=== PATIENT | male | born 1955 | race Caucasian/White ===

== ENCOUNTER 2017-12-30 17:05 | Inpatient (IN) | payer MEDICARE ==
[2017-12-30 17:48] LABS: #Eosinphils 0.4 thou/uL (0.0-0.7); #Monocytes 0.6 thou/uL (0.11-0.59); %Basophils 0.3 % (0.0-1.0); %Eosinophils 7.3 % (0.0-10.0); %Lymphocytes 33.3 % (21.0-51.0); %Monocytes 9.3 % (0.0-10.0); %Neutrophils 49.9 % (42.0-75.0); Hemoglobin 12.1 g/dL (14.0-18.0); Mean Corpuscular HGB CONC 33.9 g/dL (32.0-36.0); Mean Corpuscular Hemoglobin 31.4 pg (27.0-31.0); Mean Corpuscular Volume 92.6 fl (80.0-94.0); Mean Platelet Volume 7.8 fL (7.4-10.4); Platelet Count 126 thou/uL (130-400); RBC Distribution Width 11.8 % (11.5-14.5); Red Blood Cell (RBC) Count 3.86 mill/uL (4.70-6.10)
[2017-12-30 18:12] LABS: ALT (SGPT) 33 U/L (8-55); AST (SGOT) 31 U/L (5-34); Albumin 3.9 g/dL (3.4-4.8); Alkaline Phosphatase 65 U/L (40-150); Anion Gap 13 mmol/L (10-20); BUN (Urea Nitrogen) 28 mg/dL (8.4-25.7); Bilirubin, Total 0.6 mg/dL (0.2-1.2); Calc. Creatinine Clearance 0 mL/min (70-130); Calcium 8.8 mg/dL (7.8-10.44); Carbon Dioxide 21 mmol/L (23-31); Chloride 100 mmol/L (98-107); Estimated GFR-MDRD 31; Globulin 2.7 g/dL (2.4-3.5); Glucose 94 mg/dL (80-115); Potassium 3.8 mmol/L (3.5-5.1); Protein, Total 6.6 g/dL (5.8-8.1); Sodium 130 mmol/L (136-145)
[2017-12-30 18:16] LABS: CKMB 2.2 ng/mL (0-6.6); Troponin I Less than 0.010 ng/mL (< 0.028)
--- NOTE | 2017-12-30 18:37 | RAD ---
CHEST ONE VIEW: HISTORY: Pain. COMPARISON: 08/01/2007 FINDINGS: Portable upright chest demonstrates a normal cardiac silhouette. Pulmonary vessels and hilum are nor mal. The costophrenic angles are clear. No mass. No consolidation. No pneumothorax or osseous abn ormality. IMPRESSION: No acute cardiopulmonary process. POS: [facility]
[2017-12-30] MEDS ORDERED: Acetaminophen 500 MG TAB ONE (19:30)
[2017-12-30] MEDS ORDERED: Morphine 4 MG/ML VIAL SLOW IVP PRN (20:02)
[2017-12-30] MEDS ORDERED: Nitroglycerin 0.4 MG TAB (25 Tab Bottle) SL PRN (20:02)
[2017-12-30] MEDS ORDERED: Acetaminophen 325 MG TAB PO PRN (20:05)
[2017-12-30] MEDS ORDERED: Milk Of Magnesia 30 ML UDCUP PO PRN (20:05)
[2017-12-30] MEDS ORDERED: Sodium Chloride 0.9% 1,000 ML IV SCH (20:15)
--- NOTE | 2017-12-30 20:48 | HP ---
PRESENTING COMPLAINT: Chest pain. HISTORY OF PRESENT ILLNESS: Mr. Rivera Padilla is a 62-year-old male with a past medical history of CK D, chronic fatigue syndrome, fibromyalgia, type 2 diabetes mellitus who presented to the emergency ro om with complaints of chest pain. He reportedly had a pressure-like pain in his chest this morning, described as a "big diane" sitting on his chest, constant, did not radiate and relieved transiently by taking nitroglycerin. It was associated with nausea and dizziness. The pain went away and about 4 h ours later, he had a repeat of his symptoms associated with dizziness and so he decided to come to [facility] emergency room. Denies palpitations, PND, orthopnea, or lower extremity edema. He has no diarrhea , abdominal pain, constipation or diarrhea. He has no urinary symptoms. He is alert and well orient ed. PAST MEDICAL HISTORY: As stated in the HPI. PAST SURGICAL HISTORY: Bilateral herniorrhaphy, history of back surgery and history of skull fractur e. FAMILY HISTORY: Reviewed and noncontributory. SOCIAL HISTORY: He does not smoke cigarettes, drink alcohol or use illicit drugs. ALLERGIES: No known drug allergies. REVIEW OF SYSTEMS: All systems reviewed are negative except for as stated above in HPI. HOME MEDICATIONS: Reviewed. PHYSICAL EXAMINATION: VITAL SIGNS: Stable. Blood pressure 118/72, heart rate 52, oxygen saturation 100% on room air. GENERAL: Not in acute distress, lying down in bed and looks comfortable. HEENT: Normocephalic, atraumatic. Not pale, anicteric. Moist mucous membranes. PERRLA, EOMI. NECK: Supple, full range of movement. No JVD. RESPIRATORY: Vesicular breath sounds bilaterally. No wheezes, rales or rhonchi. CARDIOVASCULAR: No reproducible chest pain. S1 and S2 only. Regular rate and rhythm. No murmurs, rubs or gallops. ABDOMEN: Soft, nontender, nondistended, obese abdomen, positive bowel sounds. MUSCULOSKELETAL: Swelling around the right ankle, tender to touch. The patient reports he sprained his ankle on Saturday and has had trouble to ambulate and since then. NEUROLOGIC: Alert and well oriented to time, place and person. No focal deficits. PSYCHIATRIC: Normal mood and affect. SKIN: Warm, dry, well-perfused. No rashes or lesions. LABORATORY DATA: CBC showed mild hyponatremia at 130, BUN and creatinine elevated at 28 and 2.13 res pectively. Initial troponin less than 0.010. CBC significant for platelet count of 126. EKG showed a first-degree AV block with no signs of acute ischemia. Chest x-ray showed no acute pulmonary proc ess. ASSESSMENT AND PLAN: 1. Unstable angina: The patient with history of diabetes mellitus who presented with pressure-like chest pain and symptoms suggestive of possible myocardial ischemia. He will be admitted to telemetry , cardiac enzymes will be trended. We will also get a Cardiology consult and placed on sublingual ni troglycerin p.r.n. as well as IV morphine p.r.n. for chest pain. He will require a cardiac stress te st on this admission. Further recommendation will depend on what Cardiology decides to do outside ev aluation. 2. Thrombocytopenia. No signs of acute bleeding. Patient has had borderline low platelets, chronic ally. We will place on SCDs while in hospital. 3. Acute kidney injury on chronic kidney disease, likely due to volume depletion, prerenal. We will place on gentle hydration and monitor renal indices. We will hold off on Nephrology consult for now . 4. Chronic fatigue syndrome. We will start the patient on his home medications. 5. Type 2 diabetes mellitus. The patient reports improved glycemic control. Last A1c in 10/2017 wa s 5.5. He will be placed on diabetic diet. 6. Deep venous thrombosis prophylaxis, SCDs. CODE STATUS: FULL CODE. In addition, we will obtain daily labs, trend troponin and monitor vital signs closely.
[2017-12-30 21:11] LABS: Troponin I Less than 0.010 ng/mL (< 0.028)
[2017-12-30] MEDS ORDERED: clonazePAM 1 MG TAB PO SCH (21:30)
[2017-12-30] MEDS ORDERED: Pregabalin 50 MG CAP PO SCH (21:30)
[2017-12-30] MEDS ORDERED: Amitriptyline HCl 25 MG TAB PO SCH (21:30)
[2017-12-30] MEDS: Docusate 100 MG CAP PO SCH (21:46)
--- NOTE | 2017-12-30 22:10 | RAD ---
RIGHT ANKLE THREE VIEWS: HISTORY: Pain. Swelling. COMPARISON: None. FINDINGS: Lateral soft tissue swelling. Ankle mortise is intact. No fracture. IMPRESSION: Lateral soft tissue swelling. No fracture. POS: [facility]
[2017-12-30] MEDS: HYDROcodone/Acetaminophen 5/325 mg Tablet PO PRN (22:11)
[2017-12-30 23:52] LABS: Troponin I Less than 0.010 ng/mL (< 0.028)
[2017-12-31 04:46] LABS: #Eosinphils 0.5 thou/uL (0.0-0.7); #Lymphocytes 2.1 thou/uL (1.20-3.40); #Monocytes 0.6 thou/uL (0.11-0.59); #Neutrophils 3.1 thou/uL (1.40-6.50); %Basophils 0.7 % (0.0-1.0); %Eosinophils 7.7 % (0.0-10.0); %Lymphocytes 32.8 % (21.0-51.0); %Neutrophils 49.9 % (42.0-75.0); Hemoglobin 12.4 g/dL (14.0-18.0); Mean Corpuscular HGB CONC 35.4 g/dL (32.0-36.0); Mean Corpuscular Hemoglobin 32.4 pg (27.0-31.0); Mean Corpuscular Volume 91.4 fl (80.0-94.0); Mean Platelet Volume 7.4 fL (7.4-10.4); Platelet Count 117 thou/uL (130-400); Red Blood Cell (RBC) Count 3.84 mill/uL (4.70-6.10); White Blood Cell (WBC) Count 6.3 thou/uL (4.8-10.8)
[2017-12-31 04:57] LABS: Anion Gap 11 mmol/L (10-20); BUN (Urea Nitrogen) 26 mg/dL (8.4-25.7); Calc. Creatinine Clearance 67 mL/min (70-130); Calcium 8.6 mg/dL (7.8-10.44); Carbon Dioxide 23 mmol/L (23-31); Chloride 102 mmol/L (98-107); Estimated GFR-MDRD 34; Glucose 90 mg/dL (80-115); Potassium 4.4 mmol/L (3.5-5.1); Sodium 132 mmol/L (136-145)
[2017-12-31] MEDS ORDERED: Promethazine 25 MG TAB PO PRN (09:59)
[2017-12-31] MEDS ORDERED: DEXTROAMPHETAMINE PO SCH (10:00)
[2017-12-31] MEDS ORDERED: [UNRECOGNIZED DRUG - OTHER] PO SCH (10:00)
[2017-12-31] MEDS ORDERED: AMPHETAMINE PO SCH (10:00)
[2017-12-31] MEDS: clonazePAM 1 MG TAB PO SCH ×2 (12:04→22:09)
[2017-12-31] MEDS: Aspirin 325 MG TAB PO SCH (12:05)
[2017-12-31] MEDS: Docusate 100 MG CAP PO SCH ×3 (12:05→22:15)
[2017-12-31] MEDS: Pregabalin 50 MG CAP PO SCH ×3 (12:05→22:09)
[2017-12-31] MEDS: HYDROcodone/Acetaminophen 5/325 mg Tablet PO PRN ×2 (12:11→22:13)
--- NOTE | 2017-12-31 12:47 | PDOC.PN ---
- Subjective Encounter Start Date: 12/31/17 Encounter Start Time: 12:45 62 M admitted seen and examined today. he presents with chest pain w concerns for ACS. He is scheduled to get a stress test done this a.m. He has no new conplaints and no acute overnight events. Cardiac enzymes have been negative. - Objective Resuscitation Status: Resuscitation Status FULL:Full Resuscitation MAR Reviewed: Yes Vital Signs & Weight: Vital Signs (12 hours) Temp Pulse Resp BP BP Pulse Ox 12/31/17 12:04 97.7 F 66 20 129/81 97 12/31/17 07:55 97.6 F 55 L 20 12/31/17 07:34 97.6 F 55 L 20 102/67 99 12/31/17 04:30 57 L 18 99/57 L 96 Weight Weight 278 lb 11.2 oz I&O: 12/30/17 12/31/17 01/01/18 06:59 06:59 06:59 Output Total 900 Balance -900 Result Diagrams: 12/31/17 04:36 12/31/17 04:36 Phys Exam - Physical Examination Constitutional: NAD HEENT: moist MMs, sclera anicteric, oral pharynx no lesions Neck: no JVD, supple, full ROM Respiratory: no wheezing, no rales, no rhonchi, clear to auscultation bilateral Cardiovascular: RRR, no significant murmur, no rub Gastrointestinal: soft, non-tender, no distention, positive bowel sounds Musculoskeletal: no edema, pulses present Neurological: non-focal, moves all 4 limbs Psychiatric: normal affect, A&O x 3 Skin: no rash, normal turgor Dx/Plan (1) Unstable angina Status: Acute Comment: Stable and chest pain free. Scheduled for stress test today. Cardiology consulted. SL NTG and Morphine PRN for chest pain. (2) Right ankle sprain Code(s): S93.401A - SPRAIN OF UNSPECIFIED LIGAMENT OF RIGHT ANKLE, INIT ENCNTR Status: Acute Qualifiers: Encounter type: subsequent encounter Involved ligament of ankle: unspecified ligament Qualified Code(s): S93.401D - Sprain of unspecified ligament of right ankle, subsequent encounter Comment: Stable. Continue pain control. (3) Hypothyroidism Code(s): E03.9 - HYPOTHYROIDISM, UNSPECIFIED Status: Acute Qualifiers: Hypothyroidism type: unspecified Qualified Code(s): E03.9 - Hypothyroidism , unspecified Comment: Continue Levothyroxine. (4) CFS (chronic fatigue syndrome) Code(s): R53.82 - CHRONIC FATIGUE, UNSPECIFIED Status: Chronic Comment: Continue home medications. (5) Thrombocytopenia Code(s): D69.6 - THROMBOCYTOPENIA, UNSPECIFIED Status: Acute Comment: No signs of active bleeding. SCDs in place. Avoid heparin based products. (6) CKD (chronic kidney disease) stage 3, GFR 30-59 ml/min Code(s): N18.3 - CHRONIC KIDNEY DISEASE, STAGE 3 (MODERATE) Status: Chronic Comment: Stable. Avoid nephrotoxins. Renally dose medications. - Plan cont current plan of care, plan discussed w/ family, out of bed/ambulate, DVT proph w/SCDs * . Review of Systems - Medications/Allergies Allergies/Adverse Reactions: Allergies Allergy/AdvReac Type Severity Reaction Status Date / Time No Known Drug Allergies Allergy Verified 12/30/17 21:12 Medications: Current Medications Acetaminophen (Tylenol) 650 mg PO Q4H PRN PRN Reason: Headache/Fever or Pain Hydrocodone Bitart/Acetaminophen (Polo 5/325) 1 tab PO Q4H PRN PRN Reason: Moderate Pain (4-6) Last Admin: 12/31/17 12:11 Dose: 1 tab Amitriptyline HCl (Elavil) 25 mg PO HS [facility] Aspirin (Aspirin) 325 mg PO DAILY [facility] Last Admin: 12/31/17 12:05 Dose: 325 mg Clonazepam (Klonopin) 1 mg PO BID [facility] Last Admin: 12/31/17 12:04 Dose: 1 mg Docusate Sodium (Colace) 100 mg PO BID [facility] Last Admin: 12/31/17 12:05 Dose: 100 mg Enalapril Maleate (Vasotec) 20 mg PO DAILY [facility] Sodium Chloride (Normal Saline 0.9%) 1,000 mls @ 50 mls/hr IV .Q20H [facility] Last Admin: 12/30/17 21:41 Dose: 1,000 mls Levothyroxine Sodium (Synthroid) 100 mcg PO 0600 [facility] Magnesium Hydroxide (Milk Of Magnesium) 30 ml PO DAILYPRN PRN PRN Reason: Constipation Morphine Sulfate (Morphine) 2 mg SLOW IVP Q5MIN PRN PRN Reason: Chest Pain Nitroglycerin (Nitrostat) 0.4 mg SL Q5MIN PRN PRN Reason: Chest Pain Paroxetine HCl (Paxil) 60 mg PO DAILY [facility] Patient Own Medication (Patient's Home Medication) 0 each PO ASDIR [facility] Pregabalin (Lyrica) 200 mg PO TID [facility] Last Admin: 12/31/17 12:05 Dose: Not Given Promethazine HCl (Phenergan) 25 mg PO Q4H PRN PRN Reason: Nausea/Vomiting Sodium Chloride (Flush - Normal Saline) 10 ml IVF Q12HR [facility] Sodium Chloride (Flush - Normal Saline) 10 ml IVF PRN PRN PRN Reason: Saline Flush
--- NOTE | 2017-12-31 13:02 | NM ---
CARDIAC SPECT: HISTORY: Unstable angina. Chest pain. Diabetes. TECHNIQUE: A myocardial perfusion scan was performed using the single isotope one day protocol with technetium 9 9m sestamibi, and 9 millicuries was injected intravenously for the rest exam followed by 27 millicuri es for the stress study. Pharmacologic stress with adenosine was monitored and interpreted by Dr. Shanika fatima. FINDINGS: There is a fixed defect in the inferior wall. There are small reversible defects involving the anter ior and anterolateral dia. GATED SPECT LVEF: 62% WALL MOTION EXAM: No significant wall motion abnormalities are seen. IMPRESSION: Findings suspicious for small areas of reversible ischemia in the anterior and anterolateral dia. POS: [facility]
[2017-12-31] MEDS ORDERED: Regadenoson 0.4 MG/5 ML SYRINGE ONE (13:55)
[2017-12-31] MEDS ORDERED: PARoxetine 20 MG TAB PO SCH (15:30)
[2017-12-31] MEDS: Sodium Chloride 0.9% 1,000 ML IV SCH ×2 (16:21→19:54)
[2017-12-31] MEDS ORDERED: Communication Order-Pharmacy FS SCH (16:45)
[2017-12-31] MEDS ORDERED: Atorvastatin Calcium 40 MG TAB PO SCH (21:00)
[2017-12-31] MEDS: Amitriptyline HCl 25 MG TAB PO SCH (22:09)
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
[2018-01-01 05:16] LABS: #Eosinphils 0.4 thou/uL (0.0-0.7); #Lymphocytes 2.1 thou/uL (1.20-3.40); #Monocytes 0.6 thou/uL (0.11-0.59); #Neutrophils 3.3 thou/uL (1.40-6.50); %Basophils 0.4 % (0.0-1.0); %Eosinophils 6.5 % (0.0-10.0); %Lymphocytes 32.2 % (21.0-51.0); %Monocytes 9.8 % (0.0-10.0); %Neutrophils 51.1 % (42.0-75.0); Hemoglobin 12.8 g/dL (14.0-18.0); Mean Corpuscular Hemoglobin 31.4 pg (27.0-31.0); Mean Corpuscular Volume 92.3 fl (80.0-94.0); Mean Platelet Volume 7.4 fL (7.4-10.4); Platelet Count 119 thou/uL (130-400); Red Blood Cell (RBC) Count 4.09 mill/uL (4.70-6.10); White Blood Cell (WBC) Count 6.4 thou/uL (4.8-10.8)
[2018-01-01 05:28] LABS: Anion Gap 11 mmol/L (10-20); BUN (Urea Nitrogen) 24 mg/dL (8.4-25.7); Calc. Creatinine Clearance 70 mL/min (70-130); Calcium 8.9 mg/dL (7.8-10.44); Carbon Dioxide 25 mmol/L (23-31); Cardiac Risk 8.5 (Less than 4.5); Chloride 106 mmol/L (98-107); Cholesterol 239 mg/dl (< 200 Desired); Estimated GFR-MDRD 36; Glucose 84 mg/dL (80-115); HDL Cholesterol 28 mg/dL (>60 Neg Risk); LDL Cholesterol, Calculated 174 mg/dL; Potassium 4.7 mmol/L (3.5-5.1); Sodium 137 mmol/L (136-145); Triglycerides 185 mg/dL (Less than 150)
[2018-01-01] MEDS ORDERED: Lidocaine 1% (PF) 30 ML VIAL ONE (06:22)
[2018-01-01] MEDS ORDERED: Heparin 10,000 UNITS/1 ML VIAL ONE (06:25)
[2018-01-01] MEDS: HYDROcodone/Acetaminophen 5/325 mg Tablet PO PRN ×3 (06:27→21:29)
[2018-01-01] MEDS: Aspirin 325 MG TAB PO SCH (06:27)
[2018-01-01] MEDS: Levothyroxine Sodium 100 MCG TAB PO SCH (06:27)
[2018-01-01] MEDS: clonazePAM 1 MG TAB PO SCH ×2 (06:28→21:31)
[2018-01-01] MEDS: PARoxetine 20 MG TAB PO SCH (06:28)
[2018-01-01] MEDS: Pregabalin 50 MG CAP PO SCH ×3 (06:28→21:30)
[2018-01-01] MEDS: Docusate 100 MG CAP PO SCH ×2 (06:29→21:32)
[2018-01-01] MEDS ORDERED: Midazolam HCl 2 mg/2 ml Vial ONE (07:10)
[2018-01-01] MEDS ORDERED: Fentanyl 100 MCG/2 ML VIAL ONE (07:10)
[2018-01-01] MEDS ORDERED: Protamine Sulfate 50 MG/5 ML VIAL ONE (07:27)
[2018-01-01] MEDS ORDERED: Acetaminophen/Codeine 30-300mg Tablet PO PRN ×2 (07:43)
[2018-01-01] MEDS ORDERED: Nitroglycerin 0.4 MG TAB (25 Tab Bottle) SL PRN (07:43)
[2018-01-01] MEDS ORDERED: traMADol HCl 50 MG TAB PO PRN (07:43)
[2018-01-01] MEDS ORDERED: Sodium Chloride 0.9% 1,000 ML IV SCH ×2 (07:45→14:00)
[2018-01-01] MEDS ORDERED: Sodium Chloride 0.9% 200 ML IV SCH (07:45)
[2018-01-01] MEDS ORDERED: Non-Formulary Item 1 EACH (Enalapril Maleate [Enalapril Maleate] 20 MG) PO SCH (09:00)
[2018-01-01] MEDS ORDERED: Levothyroxine Sodium 100 MCG TAB PO SCH (09:00)
[2018-01-01] MEDS ORDERED: PAROXETINE HCL PO SCH ×2 (09:00)
[2018-01-01] MEDS: Sodium Chloride 0.9% 1,000 ML IV SCH (09:43)
[2018-01-01] MEDS ORDERED: Communication Order-Pharmacy FS SCH (11:21)
[2018-01-01] MEDS ORDERED: Iopamidol 370 76% 100 ML VIAL ONE (12:23)
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
[2018-01-01 12:53] LABS: INR-International Normal Ratio 1.1; PTT 30.1 SEC (22.9-36.1); Prothrombin Time 14.3 SEC (12.0-14.7)
--- NOTE | 2018-01-01 13:44 | RAD ---
CHEST 1 VIEW: Date: 01/01/18 HISTORY: Chest pain. Surgery. Preop. COMPARISON: 12/30/17. FINDINGS: Cardiac silhouette is magnified. Pulmonary vasculature remains slightly engorged. Mediastinum is midl ine. No lobar consolidation or evidence of pneumothorax. export coordinator leads overlie the chest. IMPRESSION: Borderline pulmonary vascular congestion. POS: [facility]
--- NOTE | 2018-01-01 14:47 | PDOC.PN ---
- Subjective Encounter Start Date: 01/01/18 Encounter Start Time: 09:20 Pt seen for followup re: unstable angina. Denies chest pain or shortness of breath. - Objective MAR Reviewed: Yes Vital Signs & Weight: Vital Signs (12 hours) Temp Pulse Resp BP Pulse Ox 01/01/18 12:25 98.2 F 90 12 113/63 92 L Result Diagrams: 01/01/18 04:38 01/01/18 04:38 EKG Reviewed by me: Yes (Tele: NSR) Phys Exam - Physical Examination Obese HEENT: moist MMs, sclera anicteric, oral pharynx no lesions, 2+ tonsils Neck: no nodes, no JVD, supple, full ROM Respiratory: no wheezing, no rales, no rhonchi, clear to auscultation bilateral Cardiovascular: RRR, no rub S1, S2 Gastrointestinal: soft, non-tender, no distention, positive bowel sounds Neurological: moves all 4 limbs Psychiatric: normal affect, A&O x 3 Dx/Plan (1) Unstable angina Status: Acute Comment: Had cath today, CABG recommended for single vessel disease. Pt deciding. (2) Hypothyroidism Code(s): E03.9 - HYPOTHYROIDISM, UNSPECIFIED Status: Acute Qualifiers: Hypothyroidism type: unspecified Qualified Code(s): E03.9 - Hypothyroidism , unspecified Comment: stable, continue Levothyroxine. (3) Thrombocytopenia Code(s): D69.6 - THROMBOCYTOPENIA, UNSPECIFIED Status: Acute Comment: stable (4) CKD (chronic kidney disease) stage 3, GFR 30-59 ml/min Code(s): N18.3 - CHRONIC KIDNEY DISEASE, STAGE 3 (MODERATE) Status: Chronic Comment: receiving hydration, follow creatinine levels post-cath. - Plan * . Review of Systems - Review of Systems Constitutional: negative: fever, chills, sweats, weakness, malaise Respiratory: negative: Cough, Shortness of Breath, SOB with Excertion, Pleuritic Pain, Wheezing Cardiovascular: negative: chest pain, palpitations, orthopnea, paroxysmal nocturnal dyspnea, edema, light headedness Genitourinary: negative: Dysuria, Frequency, Incontinence, Hematuria, Retention Skin: negative: Rash, Lesions, Porfirio, Bruising - Medications/Allergies Allergies/Adverse Reactions: Allergies Allergy/AdvReac Type Severity Reaction Status Date / Time No Known Drug Allergies Allergy Verified 12/30/17 21:12 Medications: Current Medications Acetaminophen (Tylenol) 650 mg PO Q4H PRN PRN Reason: Headache/Fever or Pain Acetaminophen/Codeine Phosphate (Tylenol #3) 1 tab PO Q4H PRN PRN Reason: Mild Pain (1-3) Acetaminophen/Codeine Phosphate (Tylenol #3) 2 tab PO Q4H PRN PRN Reason: Moderate Pain (4-6) Hydrocodone Bitart/Acetaminophen (Julian 5/325) 1 tab PO Q4H PRN PRN Reason: Moderate Pain (4-6) Last Admin: 01/01/18 13:03 Dose: 1 tab Amitriptyline HCl (Elavil) 25 mg PO HS [facility] Last Admin: 12/31/17 22:09 Dose: 25 mg Aspirin (Aspirin) 325 mg PO DAILY [facility] Last Admin: 01/01/18 06:27 Dose: 325 mg Atorvastatin Calcium (Lipitor) 80 mg PO HS [facility] Clonazepam (Klonopin) 1 mg PO BID [facility] Last Admin: 01/01/18 06:28 Dose: 1 mg Docusate Sodium (Colace) 100 mg PO BID [facility] Last Admin: 01/01/18 06:29 Dose: Not Given Sodium Chloride (Normal Saline 0.9%) 1,000 mls @ 50 mls/hr IV .Q20H [facility] Levothyroxine Sodium (Synthroid) 100 mcg PO 0600 [facility] Last Admin: 01/01/18 06:27 Dose: 100 mcg Magnesium Hydroxide (Milk Of Magnesium) 30 ml PO DAILYPRN PRN PRN Reason: Constipation Miscellaneous Information (Communication Order-Pharmacy) 0 each FS ONE [facility] Stop: 01/01/18 16:46 Miscellaneous Information (Communication Order-Pharmacy) 1 each FS ASDIR [facility] Morphine Sulfate (Morphine) 2 mg SLOW IVP Q5MIN PRN PRN Reason: Chest Pain Nitroglycerin (Nitrostat) 0.4 mg SL Q5MIN PRN PRN Reason: Chest Pain Paroxetine HCl (Paxil) 60 mg PO DAILY [facility] Last Admin: 01/01/18 06:28 Dose: 60 mg [Adderall 20 Mg (Tablet] 1.5 Tab) 0 each PO ASDIR [facility] Pregabalin (Lyrica) 200 mg PO TID [facility] Last Admin: 01/01/18 06:28 Dose: 200 mg Promethazine HCl (Phenergan) 25 mg PO Q4H PRN PRN Reason: Nausea/Vomiting Sodium Chloride (Flush - Normal Saline) 10 ml IVF Q12HR [facility] Last Admin: 01/01/18 09:41 Dose: Not Given Sodium Chloride (Flush - Normal Saline) 10 ml IVF PRN PRN PRN Reason: Saline Flush Tramadol HCl (Ultram) 50 mg PO Q6H PRN PRN Reason: Moderate Pain (4-6)
[2018-01-01] MEDS: Amitriptyline HCl 25 MG TAB PO SCH (21:31)
[2018-01-01] MEDS: Atorvastatin Calcium 40 MG TAB PO SCH (21:31)
[2018-01-02 04:25] LABS: #Eosinphils 0.4 thou/uL (0.0-0.7); #Lymphocytes 1.9 thou/uL (1.20-3.40); #Monocytes 0.8 thou/uL (0.11-0.59); #Neutrophils 2.9 thou/uL (1.40-6.50); %Basophils 0.5 % (0.0-1.0); %Eosinophils 7.3 % (0.0-10.0); %Lymphocytes 31.7 % (21.0-51.0); %Monocytes 12.9 % (0.0-10.0); %Neutrophils 47.6 % (42.0-75.0); Hemoglobin 12.4 g/dL (14.0-18.0); Mean Corpuscular HGB CONC 35.5 g/dL (32.0-36.0); Mean Corpuscular Hemoglobin 32.7 pg (27.0-31.0); Mean Corpuscular Volume 92.3 fl (80.0-94.0); Mean Platelet Volume 7.4 fL (7.4-10.4); Platelet Count 113 thou/uL (130-400); RBC Distribution Width 12.3 % (11.5-14.5); Red Blood Cell (RBC) Count 3.79 mill/uL (4.70-6.10); White Blood Cell (WBC) Count 6.1 thou/uL (4.8-10.8)
[2018-01-02 04:47] LABS: Anion Gap 13 mmol/L (10-20); BUN (Urea Nitrogen) 19 mg/dL (8.4-25.7); Calc. Creatinine Clearance 73 mL/min (70-130); Calcium 8.9 mg/dL (7.8-10.44); Carbon Dioxide 24 mmol/L (23-31); Chloride 106 mmol/L (98-107); Estimated GFR-MDRD 38; Glucose 101 mg/dL (80-115); Potassium 4.5 mmol/L (3.5-5.1); Sodium 138 mmol/L (136-145)
[2018-01-02] MEDS ORDERED: CEFAZOLIN/Water 2 GM/20 ML SYRINGE SLOW IVP SCH (05:00)
[2018-01-02] MEDS: Levothyroxine Sodium 100 MCG TAB PO SCH (05:16)
[2018-01-02] MEDS ORDERED: CEFAZOLIN/Water 2 GM/20 ML SYRINGE ONE (06:12)
[2018-01-02] MEDS ORDERED: Albumin 5% 500 ML ONE (06:29)
[2018-01-02] MEDS ORDERED: Heparin 10,000 UNITS/1 ML VIAL 30,000 UNITS in Sodium Chloride 0.9% 1,000 ML FS SCH (06:45)
[2018-01-02] MEDS ORDERED: Vecuronium 10 MG VIAL ONE ×2 (06:50→15:13)
[2018-01-02] MEDS ORDERED: Midazolam HCl 5 mg/5 ml Vial ONE (06:50)
[2018-01-02] MEDS ORDERED: Fentanyl 250 MCG/5 ML VIAL ONE (06:50)
[2018-01-02] MEDS ORDERED: Isosulfan Blue 50 MG/5 ML VIAL ONE (06:50)
[2018-01-02] MEDS ORDERED: Norepinephrine 8 MG/0.9% NS 250 ML ONE (06:51)
[2018-01-02] MEDS ORDERED: Promethazine HCl 25 MG/ML VIAL IM PRN (06:56)
[2018-01-02] MEDS ORDERED: Fentanyl 100 MCG/2 ML VIAL SLOW IVP PRN ×2 (06:56)
[2018-01-02] MEDS ORDERED: Bisacodyl 5 MG TAB PO PRN (06:56)
[2018-01-02] MEDS ORDERED: Post-Op Insulin Drip Protocol IVPB ONE (06:56)
[2018-01-02] MEDS ORDERED: niCARdipine HCl 25 MG in Sodium Chloride 0.9% 250 ML 240 ML IVPB PRN (06:56)
[2018-01-02] MEDS ORDERED: hydrALAZINE 20 MG/ML VIAL SLOW IVP PRN (06:56)
[2018-01-02] MEDS ORDERED: Potassium Chloride 20 MEQ/100 ML PREMIX BAG IVPB PRN (06:56)
[2018-01-02] MEDS ORDERED: Nitroglycerin 50 MG/250 ML BOT 250 ML IVPB PRN (06:56)
[2018-01-02] MEDS ORDERED: Bisacodyl 10 MG SUPP PR PRN (06:56)
[2018-01-02] MEDS ORDERED: Guaifenesin DM 100-10/5 ML UDCUP PO PRN (06:56)
[2018-01-02] MEDS ORDERED: Mag-Al 1200 mg/1200 mg/30 ML UDCUP PO PRN (06:56)
[2018-01-02] MEDS ORDERED: Acetaminophen 325 MG TAB PO PRN (06:56)
[2018-01-02] MEDS ORDERED: Norepinephrine 8 MG/0.9% NS 250 ML IVPB PRN (06:56)
[2018-01-02] MEDS ORDERED: Ondansetron HCl/PF 4 MG/2 ML Vial IVP PRN (06:56)
[2018-01-02] MEDS ORDERED: Hetastarch 6% 500 ML 500 ML IVPB PRN (06:56)
[2018-01-02] MEDS ORDERED: Midazolam HCl 2 mg/2 ml Vial ONE (07:10)
[2018-01-02] MEDS ORDERED: Morphine 4 MG/ML VIAL IV PRN (07:17)
[2018-01-02] MEDS ORDERED: PHENYLEPHRINE-NS 100 MCG/ML 10 ML SYRINGE ONE ×2 (09:51→15:13)
--- NOTE | 2018-01-02 12:52 | OP ---
DATE OF PROCEDURE: 01/02/2018 PROCEDURES PERFORMED: Coronary artery bypass grafting x2 with left internal mammary artery to the LA D and reverse greater saphenous vein graft from the aorta to the first diagonal. Left subclavian nell tral line placement. PREOPERATIVE DIAGNOSIS: Coronary artery disease. POSTOPERATIVE DIAGNOSIS: Coronary artery disease. SURGEON: Juan A Rojas M.D. ANESTHESIA: General endotracheal anesthesia. 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 FINDINGS: Pump time 70 minutes, crossclamp time 50 minutes (proximal vein graft anastomosis and cros sclamp) good quality MELANY and greater saphenous vein. The LAD was about a 1.5-2 mm vessel. The diago nal was about 2 mm. The pericardium was closed. NARRATIVE REPORT: After informed consent was obtained, the patient was taken to the operating room a nd placed in supine position on the operating table. After induction of general anesthesia, the kimberley ent's left upper chest was prepped and draped in sterile fashion. He was placed in Trendelenburg and a large bore needle was used to cannulate the left subclavian vein. A guidewire was placed and by navarro Olivia technique, a triple-lumen central line was inserted and the wire removed. All three por ts of the catheter easily aspirated and flushed. The line was secured. The patient's torso, groins and lower extremities were prepped and draped in sterile fashion. Saphenous vein was harvested from the left thigh from the groin to the midthigh using skin bridge technique. The vein was prepared for use as a graft and the harvest sites were closed in layers with subcutaneous and subcuticular Vicryl . Median sternotomy was performed. The left pleural space was entered and the left MELANY was mobilize d with a pedicle from the level of the xiphoid to the level of the subclavian vein. Side branches we re controlled with small Hemoclips. The patient was heparinized. The mammary was ligated and divide d distally. There was good flow through the mammary which was then instilled intraluminally with pap averine solution. The mammary bed was inspected for hemostasis. MELANY retractor was placed with the s ternal retractor. The pericardium was opened and marsupialized. The aorta was palpated and was soft . A double concentric pursestring of #2 Ethibond was placed in the ascending aorta within the perica rdial reflection and a single pursestring was placed in the right atrial appendage. Aortic and venou s cannulae were inserted and secured by the pursestrings. Cardiopulmonary bypass was instituted and the patient was systemically cooled. The heart was examined. The vessel to be bypassed were identif ied. A longitudinal slit was made in the pericardium anterior to the left phrenic nerve through whic h the mammary pedicle could be passed. A 36 Croatian chest tube was placed in the left pleural space b ringing it out through a separate incision and securing it to the skin with suture. Without developi ng the plane between the aorta and the pulmonary artery, the aorta was crossclamped and cardioplegia was administered through an aortic root needle. When arrest was then achieved, attention was turned to the first diagonal. It was opened with a [place] blade and Kian scissors and grafted end-to-si de with reverse greater saphenous vein and running 6-0 Prolene suture. The anastomosis was tested by flushing cold cardioplegic down the graft. The LAD was then opened and the mammary was anastomosed to it end-to-side with running 7-0 Prolene. The mammary pedicle was tacked to the epicardium. Cardi oplegia was administered through the root needle and an aortotomy was made in the ascending aorta wit h a scalpel and punch. The vein graft was trimmed to length and spatulated and anastomosed their end -to-side with running Prolene. With that suture line frustrated, the patient was placed in Trendelen shabana. The bulldog was removed from the mammary pedicle and cardioplegia was administered through the aortic root needle to help flush the aortic root of air. The suture line was secured. The vein gra ft was occluded and with the root needle back on the suction, the aortic crossclamp was removed. The vein graft was deaired. The anastomoses were inspected for hemostasis. A posterior pericardial mustapha in was brought out through a separate incision and secured with suture. Right atrial and right ventr icular temporary epicardial pacing wires were placed. The root needle site was closed with 5-0 Prole ne pursestring. When the patient was adequately rewarmed, he was then easily from cardiopu lmonary bypass. The aortic and venous cannulae were removed and their pursestring secured. Protamin e was administered. When hemostasis was adequate, an anterior mediastinal drain was placed. The per icardium was easily closed over with running Vicryl. The sternum was reapproximated with #7 stainles s steel wires. The fascia was closed over the wires of heavy Vicryl. The subcutaneous tissue was ir rigated and reapproximated and the skin was closed with Vicryl subcuticular stitch. The wounds were dressed and the patient taken to the intensive care unit in stable condition.
[2018-01-02 13:00] LABS: #Eosinphils 0.3 thou/uL (0.0-0.7); #Lymphocytes 1.7 thou/uL (1.20-3.40); #Monocytes 0.8 thou/uL (0.11-0.59); #Neutrophils 12.3 thou/uL (1.40-6.50); %Basophils 0.1 % (0.0-1.0); %Eosinophils 2.1 % (0.0-10.0); %Lymphocytes 11.4 % (21.0-51.0); %Monocytes 5.3 % (0.0-10.0); %Neutrophils 81.2 % (42.0-75.0); Mean Corpuscular HGB CONC 34.2 g/dL (32.0-36.0); Mean Corpuscular Volume 93.6 fl (80.0-94.0); Mean Platelet Volume 7.7 fL (7.4-10.4); Platelet Count 99 thou/uL (130-400); RBC Distribution Width 12.4 % (11.5-14.5); Red Blood Cell (RBC) Count 3.74 mill/uL (4.70-6.10); White Blood Cell (WBC) Count 15.1 thou/uL (4.8-10.8)
[2018-01-02 13:04] LABS: INR-International Normal Ratio 1.4
--- NOTE | 2018-01-02 13:09 | RAD ---
CHEST 1 VIEW: HISTORY: Heart surgery. COMPARISON: 01/01/18. FINDINGS: Cardiac silhouette magnified by projection. Pulmonary vasculature engorged with mild bilaterally per ihilar and bibasilar infiltrates. Mediastinum midline with postoperative changes now apparent. Opaq ue drains overlie the mediastinum and left hemithorax. The tip of an endotracheal catheter overlies the thoracic inlet. The tip of a left subclavian central venous catheter overlies the superior vena cava. IMPRESSION: Interval postoperative changes mediastinum with lines and tubes in good position as detailed above. POS: [facility]
[2018-01-02 13:12] LABS: CO2 Tension 43.6 mmHg (35.0-45.0); O2 Tension (PaO2) 181.4 mmHg (> 80.0); pH, Arterial 7.31 (7.35-7.45)
[2018-01-02 13:13] LABS: Actual Bicarbonate (HCO3a) 21.6 mEq/L (22-28); Base Excess (BEa) -4.5 mEq/L (-2.0 to +3.0); Calcium, Ionized 1.1 mmol/L (1.12-1.30); Hemoglobin (Hb) 11.8 g/dL (14.0-18.0); Puncture Site LINE
[2018-01-02 13:16] LABS: Anion Gap 13 mmol/L (10-20); BUN (Urea Nitrogen) 16 mg/dL (8.4-25.7); Calc. Creatinine Clearance 91 mL/min (70-130); Calcium 7.7 mg/dL (7.8-10.44); Carbon Dioxide 19 mmol/L (23-31); Chloride 110 mmol/L (98-107); Estimated GFR-MDRD 49; Glucose 125 mg/dL (80-115); Potassium 4.7 mmol/L (3.5-5.1); Sodium 137 mmol/L (136-145)
[2018-01-02] MEDS: Aspirin 325 MG TAB PO SCH (13:39)
[2018-01-02] MEDS: Sodium Chloride 0.9% 1,000 ML IV SCH ×2 (13:39→20:52)
[2018-01-02] MEDS: clonazePAM 1 MG TAB PO SCH ×2 (13:39→20:37)
[2018-01-02] MEDS: Pregabalin 50 MG CAP PO SCH ×3 (13:40→20:57)
[2018-01-02] MEDS: Docusate 100 MG CAP PO SCH ×2 (13:40→20:57)
[2018-01-02] MEDS: Famotidine/PF 20 mg/2ml Vial SLOW IVP SCH ×2 (13:40→20:57)
[2018-01-02] MEDS: PARoxetine 20 MG TAB PO SCH (13:40)
[2018-01-02] MEDS ORDERED: Protamine Sulfate 250 MG/25 ML VIAL ONE (15:12)
[2018-01-02] MEDS ORDERED: Heparin 5,000 UNITS/ML VIAL ONE (15:12)
[2018-01-02] MEDS ORDERED: Magnesium 5 GM/10 ML VIAL ONE (15:12)
[2018-01-02] MEDS ORDERED: Heparin 30,000 units/30 ml VIAL ONE (15:12)
[2018-01-02] MEDS ORDERED: Potassium Chlo 10 mEq/5 ml Syr ONE (15:12)
[2018-01-02] MEDS ORDERED: Mannitol 12.5 GM/50 ML ONE (15:12)
[2018-01-02] MEDS ORDERED: Lidocaine 2% PF 100 mg/5 ml Syringe ONE (15:12)
[2018-01-02] MEDS ORDERED: Sodium Bicarb 50 MEQ/50 ML VIAL ONE (15:12)
[2018-01-02] MEDS ORDERED: Papaverine 60 MG/2 ML VIAL ONE (15:12)
[2018-01-02] MEDS ORDERED: Calcium Chloride 1 GM/10 ML Abboject SYRINGE ONE (15:12)
[2018-01-02] MEDS ORDERED: ePHEDrine/0.9% NaCl/PF SYRINGE 50 mg/10 ml ONE (15:13)
[2018-01-02] MEDS ORDERED: PROPOFOL 200 MG/20 ML VIAL ONE (15:13)
[2018-01-02] MEDS ORDERED: Lidocaine 1% PF 5 ML VIAL ONE (15:13)
[2018-01-02 16:49] LABS: CO2 Tension 44.9 mmHg (35.0-45.0)
[2018-01-02 16:50] LABS: Actual Bicarbonate (HCO3a) 21.3 mEq/L (22-28); Base Excess (BEa) -5.1 mEq/L (-2.0 to +3.0); Hematocrit-ABG 36.4 % (42.0-52.0); O2 Tension (PaO2) 104.9 mmHg (> 80.0)
[2018-01-02 16:51] LABS: Hemoglobin (Hb) 12.2 g/dL (14.0-18.0)
[2018-01-02 16:52] LABS: ALV-art Gradient 124.175 (0-20); Calcium, Ionized 1.1 mmol/L (1.12-1.30); Puncture Site LINE
--- NOTE | 2018-01-02 17:17 | PDOC.PN ---
- Subjective Encounter Start Date: 01/02/18 Encounter Start Time: 15:00 -: non-verbal Pt seen for followup re: unstable angina. Intubated but waking up to voice. Unable to complete ROS due to nonverbal status. - Objective MAR Reviewed: Yes Vital Signs & Weight: Vital Signs (12 hours) Temp Pulse Resp BP Pulse Ox 01/02/18 15:10 89 100/57 L 01/02/18 12:44 97.5 F L 88 12 128/75 100 Weight Admit Weight 263 lb 14.293 oz Most Recent Monitor Data Heart Rate from ECG 86 NIBP 109/70 NIBP BP-Mean 79 Respiration from ECG 12 SpO2 100 I&O: 01/01/18 01/02/18 01/03/18 06:59 06:59 06:59 Intake Total 650 250 Output Total 850 2345 Balance -200 -2095 Result Diagrams: 01/02/18 12:53 01/02/18 12:53 Additional Labs: Accuchecks 01/02/18 01/02/18 01/02/18 11:46 10:59 10:33 POC Glucose 117 H 100 100 01/02/18 01/02/18 09:45 08:05 POC Glucose 87 89 EKG Reviewed by me: Yes (Tele: NSR) Phys Exam - Physical Examination Obese HEENT: moist MMs, sclera anicteric trachea midline; no cervical lymphadenopathy Respiratory: no wheezing, no rales, no rhonchi, clear to auscultation bilateral Cardiovascular: RRR, no rub S1, S2 Gastrointestinal: soft, non-tender, no distention, positive bowel sounds Neurological: moves all 4 limbs Psychiatric: normal affect Deviation from normal: Unable to assess orientation to person, place or time Dx/Plan (1) Unstable angina Status: Acute Comment: s/p CABG, now in CCU. Continue aspirin and Lipitor (2) Hypothyroidism Code(s): E03.9 - HYPOTHYROIDISM, UNSPECIFIED Status: Acute Qualifiers: Hypothyroidism type: unspecified Qualified Code(s): E03.9 - Hypothyroidism , unspecified Comment: stable (3) Thrombocytopenia Code(s): D69.6 - THROMBOCYTOPENIA, UNSPECIFIED Status: Acute Comment: stable (4) CKD (chronic kidney disease) stage 3, GFR 30-59 ml/min Code(s): N18.3 - CHRONIC KIDNEY DISEASE, STAGE 3 (MODERATE) Status: Chronic Comment: creatinine level improved - Plan * . Review of Systems - Medications/Allergies Allergies/Adverse Reactions: Allergies Allergy/AdvReac Type Severity Reaction Status Date / Time No Known Drug Allergies Allergy Verified 12/30/17 21:12 Medications: Current Medications Acetaminophen (Tylenol) 650 mg PO Q6H PRN PRN Reason: Headache/Fever Or Mild Pain Acetaminophen/Codeine Phosphate (Tylenol #3) 1 tab PO Q4H PRN PRN Reason: Mild Pain (1-3) Acetaminophen/Codeine Phosphate (Tylenol #3) 2 tab PO Q4H PRN PRN Reason: Moderate Pain (4-6) Hydrocodone Bitart/Acetaminophen (Banner 5/325) 1 tab PO Q4H PRN PRN Reason: Moderate Pain (4-6) Hydrocodone Bitart/Acetaminophen (Banner 5/325) 2 tab PO Q4H PRN PRN Reason: Severe Pain (7-10) Al Hydroxide/Mg Hydroxide (Maalox) 30 ml PO Q4H PRN PRN Reason: Indigestion Albumin Human (Albumin 5%) 12.5 gm IVPB Q6H PRN PRN Reason: To Maintain SBP> 90 mmHG Stop: 01/03/18 06:57 Last Admin: 01/02/18 13:43 Dose: 12.5 gm Albumin Human (Albumin 5%) 25 gm IVPB Q6H PRN PRN Reason: To Maintain SBP > 90 mmHG Stop: 01/03/18 06:57 Albuterol/Ipratropium (Duoneb) 3 ml NEB F6EU-ON PRN PRN Reason: SHORTNESS OF BREATH Amitriptyline HCl (Elavil) 25 mg PO [facility] Last Admin: 01/01/18 21:31 Dose: 25 mg Aspirin (Aspirin) 325 mg PO DAILY [facility] Last Admin: 01/02/18 13:39 Dose: Not Given Atorvastatin Calcium (Lipitor) 80 mg PO [facility] Last Admin: 01/01/18 21:31 Dose: 80 mg Bisacodyl (Dulcolax) 10 mg PO Q12H PRN PRN Reason: Constipation Bisacodyl (Dulcolax) 10 mg [place] Q12H PRN PRN Reason: Constipation Clonazepam (Klonopin) 1 mg PO BID [facility] Last Admin: 01/02/18 13:39 Dose: Not Given Docusate Sodium (Colace) 100 mg PO BID [facility] Last Admin: 01/02/18 13:40 Dose: Not Given Famotidine (Pepcid) 20 mg SLOW IVP Q12HR [facility] Last Admin: 01/02/18 13:40 Dose: Not Given Fentanyl (Sublimaze) 25 mcg SLOW IVP Q2H PRN PRN Reason: Moderate Pain (4-6) Stop: 01/04/18 06:57 Fentanyl (Sublimaze) 50 mcg SLOW IVP Q2H PRN PRN Reason: Severe Pain (7-10) Stop: 01/04/18 06:57 Guaifenesin/Dextromethorphan (Robitussin Dm) 15 ml PO Q4H PRN PRN Reason: Cough Hydralazine HCl (Apresoline) 10 mg SLOW IVP Q6H PRN PRN Reason: To Maintain SBP< 140mmHG Heparin Sodium (Porcine) 30, (000 units/ Sodium Chloride) 1,003 mls @ 0 mls/hr FS [facility] PRN Reason: As Directed Stop: 01/02/18 23:59 Hetastarch/Sodium Chloride (Hespan) 500 mls @ 0 mls/hr IVPB PRN PRN; As Directed PRN Reason: To Maintain SBP > 90mmHg Stop: 01/03/18 06:57 Norepinephrine Bitartrate (Levophed) 250 mls @ 0 mls/hr IVPB PRN PRN; Protocol ; Titrate PRN Reason: To maintain SBP > 90 mmHG Nicardipine HCl 25 mg/ Sodium (Chloride) 250 mls @ 0 mls/hr IVPB INF PRN; Protocol; Titrate PRN Reason: To Maintain SBP< 140mmHG Nitroglycerin/Dextrose (Nitroglycerin 50 Mg/250 Ml Bot) 250 mls @ 0 mls/hr IVPB PRN PRN; Protocol; Titrate PRN Reason: To Maintain SBP< 140mmHG Sodium Chloride (Normal Saline 0.9%) 1,000 mls @ 75 mls/hr IV .[id number] [facility] Last Admin: 01/02/18 13:39 Dose: 1,000 mls Levothyroxine Sodium (Synthroid) 100 mcg PO 0600 [facility] Last Admin: 01/02/18 05:16 Dose: Not Given Magnesium Hydroxide (Milk Of Magnesium) 30 ml PO DAILYPRN PRN PRN Reason: Constipation Miscellaneous Information (Communication Order-Pharmacy) 1 each FS ASDIR [facility] Morphine Sulfate (Morphine) 2 mg IV Q15MIN PRN PRN Reason: Severe Pain (7-10) Nitroglycerin (Nitrostat) 0.4 mg SL Q5MIN PRN PRN Reason: Chest Pain Ondansetron HCl (Zofran) 4 mg IVP Q6H PRN PRN Reason: Nausea/Vomiting Paroxetine HCl (Paxil) 60 mg PO DAILY [facility] Last Admin: 01/02/18 13:40 Dose: Not Given [Adderall 20 Mg (Tablet] 1.5 Tab) 0 each PO ASDIR [facility] Potassium Chloride (Kcl) 20 meq IVPB PRN PRN PRN Reason: K level </= 4.0 Pregabalin (Lyrica) 200 mg PO TID [facility] Last Admin: 01/02/18 13:40 Dose: Not Given Promethazine HCl (Phenergan) 25 mg PO Q4H PRN PRN Reason: Nausea/Vomiting Promethazine HCl (Phenergan) 6.25 mg IM Q4H PRN PRN Reason: Nausea/Vomiting Sodium Chloride (Flush - Normal Saline) 10 ml IVF Q12HR [facility] Last Admin: 01/02/18 13:41 Dose: 10 ml Sodium Chloride (Flush - Normal Saline) 10 ml IVF PRN PRN PRN Reason: Saline Flush Tramadol HCl (Ultram) 50 mg PO Q6H PRN PRN Reason: Moderate Pain (4-6)
[2018-01-02] MEDS ORDERED: Dextrose 5% in Water 1,000 ML IV PRN (17:33)
[2018-01-02] MEDS ORDERED: Dextrose 50% Abboject 50 ML SYRINGE SLOW IVP PRN (17:33)
[2018-01-02] MEDS: HYDROcodone/Acetaminophen 5/325 mg Tablet PO PRN ×2 (18:16→22:18)
[2018-01-02 19:06] LABS: Potassium 5.3 mmol/L (3.5-5.1)
[2018-01-02] MEDS: Amitriptyline HCl 25 MG TAB PO SCH (20:37)
[2018-01-02] MEDS: Atorvastatin Calcium 40 MG TAB PO SCH (20:56)
--- NOTE | 2018-01-03 00:22 | CON ---
DATE OF CONSULTATION: 01/02/2018 SERVICE: Pulmonary Medicine. REASON FOR CONSULTATION: Intubated patient. HISTORY OF PRESENT ILLNESS: The patient is a 62-year-old white male with past medical history signif icant for coronary artery disease. He was in his usual state of health when he started having some c hest pain. He came to the Emergency Department and was ultimately discovered to have coronary artery disease that required coronary artery bypass graft. He is postop day 0 from a 2-vessel coronary art geri bypass graft. It was an uneventful procedure. I am seeing him in the ICU for the first time. H huseyin is on mechanical ventilation and still under the influence of a little bit of sedating medications. No additional elements of the history can be obtained from him. PAST MEDICAL HISTORY: 1. Coronary artery disease. 2. Type 2 diabetes mellitus. 3. Morbid obesity. 4. Dyslipidemia. 5. Hypertension. 6. Fibromyalgia. 7. Chronic fatigue syndrome. 8. Chronic kidney disease. PAST SURGICAL HISTORY: 1. Coronary artery bypass graft x2 vessels, postop day 0. 2. Herniorrhaphy, bilateral. 3. Low back surgery. 4. History of skull fracture. SOCIAL HISTORY: Negative for current alcohol, tobacco, or illicit drug use. He has no exposure to c hemicals, dust, asbestos, or tuberculosis. FAMILY HISTORY: Noncontributory. ALLERGIES: No known drug allergies. MEDICATIONS: List of his inpatient medications were reviewed. No updates were made at this time. REVIEW OF SYSTEMS: Cannot be obtained as the patient is currently intubated and sedated. PHYSICAL EXAMINATION: VITAL SIGNS: Afebrile, pulse 89, blood pressure 109/70, respirations 12, saturation 100% on 37% FiO 2 and a PEEP of 5. HEENT: Normocephalic, atraumatic. Sclerae white. Conjunctivae pink. Oral mucosa is moist without lesions. LUNGS: Decent air entry. There is minimal dependent crackles present without rhonchi or wheezing. HEART: Normal rate, regular. ABDOMEN: Soft, nontender, nondistended. Bowel sounds are positive. MUSCULOSKELETAL: No cyanosis or clubbing. No pitting in the bilateral lower extremities. NEUROLOGIC: Grossly nonfocal. LINES AND TUBES: He has 2 mediastinal drains, a left thoracostomy drain, endotracheal tube, subclavi an central venous catheter, A wire, V wire, Fernández catheter. LABORATORY DATA: WBC 15.1 in the postop period, hemoglobin 12, platelets 99,000. INR 1.4. Basic me tabolic profile is otherwise unremarkable. Creatinine 1.46 and down trending gently. A pH 7.30, pCO 2 of 44, pO2 of 104. IMAGING: Chest x-ray demonstrates endotracheal tube is in good position, roughly 4 cm above the zoltan na. There is a left-sided thoracostomy drain. There is a mediastinal drain that I see x1. I really do not see the other one. No obvious consolidation or effusion is present, but there is a little bi t of volume loss on the left, possibly consistent with some left lower lobe atelectasis. ASSESSMENT: 1. Acute hypoxic respiratory failure. 2. Atelectasis of the left lower lobe. 3. Coronary artery disease, status post coronary artery bypass graft, postop day 0. 4. Type 2 diabetes mellitus. DISCUSSION AND PLAN: The patient is doing absolutely fantastic in his postoperative period. He is o n a little bit of Levophed. We will wean this away as his blood pressure tolerates. When he wakes u p appropriately, we will put him on a spontaneous breathing trial. If he meets criteria at the end o f this thing, extubation will be considered. We will encourage pulmonary toileting. It appears that he has some atelectasis of the left base based on the volume loss there. Once the tube is out, we h opefully will be able to work with him on deep breathing and coughing exercises to prevent further co mplications. CRITICAL CARE TIME: 30 minutes.
[2018-01-03] MEDS: HYDROcodone/Acetaminophen 5/325 mg Tablet PO PRN ×4 (02:23→21:58)
[2018-01-03] MEDS: Sodium Chloride 0.9% 1,000 ML IV SCH ×3 (02:24→22:48)
[2018-01-03] MEDS: Levothyroxine Sodium 100 MCG TAB PO SCH (05:12)
[2018-01-03 06:03] LABS: #Lymphocytes 1.1 thou/uL (1.20-3.40); #Monocytes 1.6 thou/uL (0.11-0.59); #Neutrophils 11.7 thou/uL (1.40-6.50); %Basophils 0.1 % (0.0-1.0); %Eosinophils 0.1 % (0.0-10.0); %Lymphocytes 7.7 % (21.0-51.0); Anion Gap 11 mmol/L (10-20); BUN (Urea Nitrogen) 17 mg/dL (8.4-25.7); Calc. Creatinine Clearance 75 mL/min (70-130); Calcium 7.8 mg/dL (7.8-10.44); Carbon Dioxide 21 mmol/L (23-31); Chloride 108 mmol/L (98-107); Estimated GFR-MDRD 42; Glucose 125 mg/dL (80-115); Hemoglobin 10.6 g/dL (14.0-18.0); Mean Corpuscular Hemoglobin 32.8 pg (27.0-31.0); Mean Corpuscular Volume 93.6 fl (80.0-94.0); Mean Platelet Volume 7.3 fL (7.4-10.4); Platelet Count 110 thou/uL (130-400); Potassium 4.8 mmol/L (3.5-5.1); RBC Distribution Width 12.5 % (11.5-14.5); Red Blood Cell (RBC) Count 3.22 mill/uL (4.70-6.10); Sodium 135 mmol/L (136-145); White Blood Cell (WBC) Count 14.4 thou/uL (4.8-10.8)
--- NOTE | 2018-01-03 08:11 | RAD ---
CHEST 1 VIEW: HISTORY: Heart surgery. Followup. COMPARISON: 01/02/18. FINDINGS: Cardiac silhouette magnified by projection. Left basilar atelectasis has increased slightly. Pulmon amina vasculature is slightly more engorged. Mediastinum midline with postoperative changes. Endotrac heal catheter is no longer visible. Other lines and tubes are unchanged in position. Cardiac monito r leads overlie the chest. IMPRESSION: 1. Interval increase in left basilar postoperative atelectasis. 2. Extubation. 3. Otherwise, stable postoperative appearance of the chest. POS: [facility]
[2018-01-03] MEDS: Pregabalin 50 MG CAP PO SCH ×3 (09:24→21:08)
[2018-01-03] MEDS: PARoxetine 20 MG TAB PO SCH (09:27)
[2018-01-03] MEDS: Docusate 100 MG CAP PO SCH ×2 (09:27→21:08)
[2018-01-03] MEDS: Aspirin 325 MG TAB PO SCH (09:28)
--- NOTE | 2018-01-03 09:47 | PRG ---
DATE OF SERVICE: 01/03/2018 SERVICE: Pulmonary Medicine INTERVAL HISTORY: The patient refused getting out of bed this morning. When I asked him about that, he said he just simply needed a day to rest. He denies any current fevers, chills, nausea or vomiti ng. He is not lightheaded. He is not having any chest pain other than appropriate postop pain. He is lethargic today. He indicates that he does not understand what I am going through because he has chronic fatigue syndrome. I do agree with him that I cannot appreciate what that must feel like. Th at being said, it is important for him to mobilize in the early postoperative period to avoid complic ations. I discussed those complications with him including a pneumonia and even . We are going to see what we can do to motivate him today. PHYSICAL EXAMINATION: VITAL SIGNS: Afebrile, pulse 74, blood pressure 80/61, respirations 18, saturation 93% on room air. GENERAL: The patient is awake and alert. He is in no apparent distress. LUNGS: Decent air entry. Dependent crackles are present. HEART: Normal rate, regular. ABDOMEN: Soft, nontender, nondistended. Bowel sounds are positive. MUSCULOSKELETAL: No cyanosis or clubbing. There is trace pitting in the bilateral lower extremities . NEUROLOGIC: Grossly nonfocal. LABORATORY DATA: WBC 14.4 and gently down trending. Hemoglobin 10.6, platelets 110,000. INR 1.4. PH 7.30, pCO2 45, pO2 105. Creatinine 1.66 and up trending. Basic metabolic profile is otherwise un remarkable essentially. IMAGING: Chest x-ray demonstrates atelectasis on the left. He is post-extubation. Sternotomy wires are once again noted. There is a left subclavian central venous catheter that terminates in decent position. There is likely a small left-sided pleural effusion. The thoracostomy drain x2 on the lef t are stable. There is also a mediastinal drain present. Echocardiogram demonstrates a 50-55% ejection fraction with a little mitral regurgitation. Overall, the function of the heart is normal. ASSESSMENT: 1. Acute hypoxic respiratory failure secondary to atelectasis of the left lower lobe. 2. Coronary artery disease, status post coronary artery bypass graft, postoperative day #1. 3. Type 2 diabetes mellitus, DISCUSSION AND PLAN: The patient is doing fine from a respiratory standpoint. That being said, if h e does not start mobilizing he is going to have increasing complications. We are going to get some o f the lines and tubes out of him today and get him into a bedside chair. We will resume his home Add naomie to see if this will help perk him up just a touch. Pulmonary Critical Care will continue to fo llow along.
[2018-01-03] MEDS: clonazePAM 1 MG TAB PO SCH ×2 (11:19→21:08)
[2018-01-03] MEDS ORDERED: Insulin Glargine 6 UNITS in Pre-Filled Syringe 1 EACH SC PRN (12:30)
[2018-01-03] MEDS: Famotidine/PF 20 mg/2ml Vial SLOW IVP SCH ×2 (12:52→21:08)
[2018-01-03] MEDS: ADDERALL 20 MG PO SCH (12:52)
[2018-01-03] MEDS: ADDERALL 20 MG TAB PO SCH (13:28)
--- NOTE | 2018-01-03 14:23 | PDOC.PN ---
- Subjective Encounter Start Date: 01/03/18 Encounter Start Time: 09:20 Pt seen for followup re: unstable angina. Says he feels better. Soreness at surgical sites. No fevers or chills. - Objective MAR Reviewed: Yes Vital Signs & Weight: Vital Signs (12 hours) Temp Pulse Resp Pulse Ox 01/03/18 12:00 98.0 F 01/03/18 08:00 98.1 F 82 18 93 L 01/03/18 07:00 98.1 F 01/03/18 03:00 98.1 F Weight Admit Weight 263 lb 14.293 oz Weight 259 lb 11.272 oz Most Recent Monitor Data Heart Rate from ECG 81 NIBP 103/63 NIBP BP-Mean 88 Respiration from ECG 17 SpO2 93 I&O: 01/02/18 01/03/18 01/04/18 06:59 06:59 06:59 Intake Total 650 2226 480 Output Total 850 3745 315 Balance -200 -1519 165 Result Diagrams: 01/05/18 05:40 01/05/18 05:40 Additional Labs: Accuchecks 01/03/18 01/03/18 01/03/18 11:16 08:47 06:03 POC Glucose 150 H 113 H 114 H 01/03/18 01/03/18 01/03/18 05:09 04:00 02:59 POC Glucose 126 H 162 H 134 H 01/03/18 01/03/18 01/02/18 02:03 01:06 23:59 POC Glucose 142 H 147 H 128 H 01/02/18 01/02/18 01/02/18 22:59 22:03 21:06 POC Glucose 148 H 156 H 159 H 01/02/18 01/02/18 01/02/18 20:34 17:05 12:47 POC Glucose 170 H 122 H 100 EKG Reviewed by me: Yes (Tele: NSR) Phys Exam - Physical Examination Constitutional: NAD HEENT: moist MMs Neck: supple Respiratory: clear to auscultation bilateral Cardiovascular: RRR Gastrointestinal: soft Neurological: moves all 4 limbs Psychiatric: normal affect Dx/Plan (1) Unstable angina Status: Acute Comment: s/p CABG, continue statin and aspirin (2) Hypothyroidism Code(s): E03.9 - HYPOTHYROIDISM, UNSPECIFIED Status: Acute Qualifiers: Hypothyroidism type: unspecified Qualified Code(s): E03.9 - Hypothyroidism , unspecified Comment: stable, continue synthroid (3) Thrombocytopenia Code(s): D69.6 - THROMBOCYTOPENIA, UNSPECIFIED Status: Acute Comment: stable (4) CKD (chronic kidney disease) stage 3, GFR 30-59 ml/min Code(s): N18.3 - CHRONIC KIDNEY DISEASE, STAGE 3 (MODERATE) Status: Chronic Comment: stable. - Plan * . Review of Systems - Review of Systems Cardiovascular: negative: chest pain, palpitations, orthopnea, paroxysmal nocturnal dyspnea, edema, light headedness Gastrointestinal: negative: Nausea, Vomiting, Abdominal Pain, Diarrhea, Constipation, Melena, Hematochezia - Medications/Allergies Allergies/Adverse Reactions: Allergies Allergy/AdvReac Type Severity Reaction Status Date / Time No Known Drug Allergies Allergy Verified 12/30/17 21:12 Medications: Current Medications Acetaminophen (Tylenol) 650 mg PO Q6H PRN PRN Reason: Headache/Fever Or Mild Pain Acetaminophen/Codeine Phosphate (Tylenol #3) 1 tab PO Q4H PRN PRN Reason: Mild Pain (1-3) Acetaminophen/Codeine Phosphate (Tylenol #3) 2 tab PO Q4H PRN PRN Reason: Moderate Pain (4-6) Hydrocodone Bitart/Acetaminophen ([place] 5/325) 1 tab PO Q4H PRN PRN Reason: Moderate Pain (4-6) Last Admin: 01/02/18 18:16 Dose: 1 tab Hydrocodone Bitart/Acetaminophen ([place] 5/325) 2 tab PO Q4H PRN PRN Reason: Severe Pain (7-10) Last Admin: 01/03/18 09:58 Dose: 2 tab Al Hydroxide/Mg Hydroxide (Maalox) 30 ml PO Q4H PRN PRN Reason: Indigestion Albuterol/Ipratropium (Duoneb) 3 ml NEB [id number] PRN PRN Reason: SHORTNESS OF BREATH Amitriptyline HCl (Elavil) 25 mg PO HS [facility] Last Admin: 01/02/18 20:37 Dose: Not Given Aspirin (Aspirin) 325 mg PO DAILY [facility] Last Admin: 01/03/18 09:28 Dose: 325 mg Atorvastatin Calcium (Lipitor) 80 mg PO HS [facility] Last Admin: 01/02/18 20:56 Dose: 80 mg Bisacodyl (Dulcolax) 10 mg PO Q12H PRN PRN Reason: Constipation Bisacodyl (Dulcolax) 10 mg [place] Q12H PRN PRN Reason: Constipation Clonazepam (Klonopin) 1 mg PO BID [facility] Last Admin: 01/03/18 11:19 Dose: Not Given Dextrose/Water (Dextrose 50%) 25 gm SLOW IVP PRN PRN PRN Reason: PER HYPOGLYCEMIC PROTOCOL Docusate Sodium (Colace) 100 mg PO BID [facility] Last Admin: 01/03/18 09:27 Dose: 100 mg Famotidine (Pepcid) 20 mg SLOW IVP Q12HR [facility] Last Admin: 01/03/18 12:52 Dose: 20 mg Fentanyl (Sublimaze) 25 mcg SLOW IVP Q2H PRN PRN Reason: Moderate Pain (4-6) Stop: 01/04/18 06:57 Fentanyl (Sublimaze) 50 mcg SLOW IVP Q2H PRN PRN Reason: Severe Pain (7-10) Stop: 01/04/18 06:57 Glucagon (Glucagon) 1 mg SC PRN PRN PRN Reason: PER HYPOGLYCEMIC PROTOCOL Guaifenesin/Dextromethorphan (Robitussin Dm) 15 ml PO Q4H PRN PRN Reason: Cough Hydralazine HCl (Apresoline) 10 mg SLOW IVP Q6H PRN PRN Reason: To Maintain SBP< 140mmHG Norepinephrine Bitartrate (Levophed) 250 mls @ 0 mls/hr IVPB PRN PRN; Protocol ; Titrate PRN Reason: To maintain SBP > 90 mmHG Nicardipine HCl 25 mg/ Sodium (Chloride) 250 mls @ 0 mls/hr IVPB INF PRN; Protocol; Titrate PRN Reason: To Maintain SBP< 140mmHG Nitroglycerin/Dextrose (Nitroglycerin 50 Mg/250 Ml Bot) 250 mls @ 0 mls/hr IVPB PRN PRN; Protocol; Titrate PRN Reason: To Maintain SBP< 140mmHG Sodium Chloride (Normal Saline 0.9%) 1,000 mls @ 75 mls/hr IV .[id number] [facility] Last Admin: 01/03/18 11:19 Dose: 1,000 mls Insulin Human Regular 100 (units/ Sodium Chloride) 101 mls @ 0 mls/hr IVPB INF [facility]; As Directed PRN Reason: Protocol Last Admin: 01/02/18 20:58 Dose: 101 mls Dextrose/Water (D5w) 1,000 mls @ 0 mls/hr IV INF PRN; As Directed PRN Reason: PRN HYPOGLYCEMIC PROTOCOL Insulin Glargine 6 units/ (Miscellaneous Medication) 0.06 mls @ 0 mls/hr SC ONE PRN PRN Reason: PER OPEN HEART ORDERS Stop: 01/03/18 14:30 Last Admin: 01/03/18 12:56 Dose: 0.06 mls Insulin Human Regular (Humulin R) 0 units SC Q4H PRN; Protocol PRN Reason: POST OP SLIDING SCALE Levothyroxine Sodium (Synthroid) 100 mcg PO 0600 [facility] Last Admin: 01/03/18 05:12 Dose: 100 mcg Magnesium Hydroxide (Milk Of Magnesium) 30 ml PO DAILYPRN PRN PRN Reason: Constipation Miscellaneous Information (Communication Order-Pharmacy) 1 each FS ASDIR [facility] Morphine Sulfate (Morphine) 2 mg IV Q15MIN PRN PRN Reason: Severe Pain (7-10) Nitroglycerin (Nitrostat) 0.4 mg SL Q5MIN PRN PRN Reason: Chest Pain Ondansetron HCl (Zofran) 4 mg IVP Q6H PRN PRN Reason: Nausea/Vomiting Paroxetine HCl (Paxil) 60 mg PO DAILY [facility] Last Admin: 01/03/18 09:27 Dose: 60 mg [Adderall 20 Mg (Tablet] 1.5 Tab) 0 each PO ASDIR [facility] Last Admin: 01/03/18 12:52 Dose: 1.5 each Adderall 20 Mg Tab 1.5 each PO 0800,1200 [facility] Last Admin: 01/03/18 13:28 Dose: Not Given Potassium Chloride (Kcl) 20 meq IVPB PRN PRN PRN Reason: K level </= 4.0 Pregabalin (Lyrica) 200 mg PO TID [facility] Last Admin: 01/03/18 09:24 Dose: 200 mg Promethazine HCl (Phenergan) 25 mg PO Q4H PRN PRN Reason: Nausea/Vomiting Promethazine HCl (Phenergan) 6.25 mg IM Q4H PRN PRN Reason: Nausea/Vomiting Sodium Chloride (Flush - Normal Saline) 10 ml IVF Q12HR [facility] Last Admin: 01/03/18 09:28 Dose: 10 ml Sodium Chloride (Flush - Normal Saline) 10 ml IVF PRN PRN PRN Reason: Saline Flush Tramadol HCl (Ultram) 50 mg PO Q6H PRN PRN Reason: Moderate Pain (4-6)
[2018-01-03] MEDS: Amitriptyline HCl 25 MG TAB PO SCH (19:40)
[2018-01-03] MEDS: Atorvastatin Calcium 40 MG TAB PO SCH (21:07)
[2018-01-03] MEDS: Insulin Regular 300 UNITS/3 ML VIAL SC PRN (21:08)
[2018-01-04] MEDS: Levothyroxine Sodium 100 MCG TAB PO SCH (05:04)
[2018-01-04] MEDS: HYDROcodone/Acetaminophen 5/325 mg Tablet PO PRN ×2 (05:04→19:45)
[2018-01-04 05:12] LABS: #Eosinphils 0.2 thou/uL (0.0-0.7); #Lymphocytes 1.4 thou/uL (1.20-3.40); #Monocytes 1.2 thou/uL (0.11-0.59); #Neutrophils 9.1 thou/uL (1.40-6.50); %Basophils 0.2 % (0.0-1.0); %Eosinophils 1.9 % (0.0-10.0); %Lymphocytes 11.6 % (21.0-51.0); %Neutrophils 76.2 % (42.0-75.0); Hemoglobin 9.1 g/dL (14.0-18.0); Mean Corpuscular HGB CONC 33.6 g/dL (32.0-36.0); Mean Corpuscular Hemoglobin 31.8 pg (27.0-31.0); Mean Corpuscular Volume 94.8 fl (80.0-94.0); Mean Platelet Volume 7.5 fL (7.4-10.4); Platelet Count 96 thou/uL (130-400); RBC Distribution Width 12.7 % (11.5-14.5); Red Blood Cell (RBC) Count 2.86 mill/uL (4.70-6.10)
[2018-01-04 05:28] LABS: Anion Gap 9 mmol/L (10-20); BUN (Urea Nitrogen) 19 mg/dL (8.4-25.7); Calc. Creatinine Clearance 69 mL/min (70-130); Carbon Dioxide 24 mmol/L (23-31); Chloride 102 mmol/L (98-107); Estimated GFR-MDRD 38; Glucose 127 mg/dL (80-115); Potassium 4.3 mmol/L (3.5-5.1); Sodium 131 mmol/L (136-145)
[2018-01-04] MEDS: Insulin Regular 300 UNITS/3 ML VIAL SC PRN (05:56)
[2018-01-04] MEDS: Pregabalin 50 MG CAP PO SCH ×3 (08:04→21:18)
[2018-01-04] MEDS: clonazePAM 1 MG TAB PO SCH ×2 (08:04→21:18)
[2018-01-04] MEDS: Docusate 100 MG CAP PO SCH ×2 (08:05→21:18)
[2018-01-04] MEDS: Aspirin 325 MG TAB PO SCH (08:05)
[2018-01-04] MEDS: PARoxetine 20 MG TAB PO SCH (08:05)
[2018-01-04] MEDS: ADDERALL 20 MG PO SCH (08:24)
--- NOTE | 2018-01-04 08:36 | RAD ---
CHEST 1 VIEW: HISTORY: Heart surgery. Followup. COMPARISON: 01/03/18. FINDINGS: Cardiac silhouette remains magnified and partially obscured by left basilar atelectasis. Mediastinum midline with postoperative changes. Pulmonary vasculature is engorged. Lines and tubes are unchang ed in position. No evidence of pneumothorax. threat monitoring analyst leads overlie the chest. IMPRESSION: Stable postoperative appearance of the chest. POS: MAGGY
[2018-01-04] MEDS: ADDERALL 20 MG TAB PO SCH ×2 (09:14→12:46)
--- NOTE | 2018-01-04 11:09 | PRG ---
DATE OF SERVICE: 01/04/2018 SUBJECTIVE: This morning, he is awake, alert and responsive. He is still having some pain when he t akes a deep breath. He has got a left-sided chest tube. OBJECTIVE: VITAL SIGNS: Blood pressure is 122/62, sats are 97, temperature 99, respiration 18. CHEST: Chest reveals decreased breath sounds without any wheezing. CARDIAC: Normal S1, S2, no gallops. ABDOMEN: Soft. LABORATORY DATA: Creatinine 1.82, white count is 12,000, H&H is 9 and 27, platelet count is 96,000. IMPRESSION: 1. Status post coronary artery bypass graft. 2. Renal failure. 3. Thrombocytopenia. PLAN: Continue neb treatments, PT and supportive care. We will follow.
[2018-01-04] MEDS: Famotidine/PF 20 mg/2ml Vial SLOW IVP SCH ×2 (12:46→21:21)
--- NOTE | 2018-01-04 13:53 | PDOC.PN ---
- Subjective Encounter Start Date: 01/04/18 Encounter Start Time: 08:20 Pt seen for followup re: unstable angina. denies chest pain or shortness of breath. - Objective MAR Reviewed: Yes Vital Signs & Weight: Vital Signs (12 hours) Temp Pulse Resp Pulse Ox 01/04/18 12:00 98.6 F 01/04/18 08:00 99.4 F 87 16 97 01/04/18 03:00 97.9 F Weight Admit Weight 263 lb 14.293 oz Weight 262 lb 2.074 oz Most Recent Monitor Data Heart Rate from ECG 86 NIBP 119/69 NIBP BP-Mean 82 Respiration from ECG 18 SpO2 94 I&O: 01/03/18 01/04/18 01/05/18 06:59 06:59 06:59 Intake Total 2226 1375 200 Output Total 3745 1635 65 Balance -1519 -260 135 Result Diagrams: 01/05/18 05:40 01/05/18 05:40 Additional Labs: Accuchecks 01/03/18 01/03/18 20:27 16:42 POC Glucose 183 H 130 H EKG Reviewed by me: Yes (Tele: NSR) Phys Exam - Physical Examination Constitutional: NAD HEENT: moist MMs Neck: supple Respiratory: clear to auscultation bilateral chest tubes+ Cardiovascular: RRR Gastrointestinal: soft Neurological: moves all 4 limbs Psychiatric: normal affect Dx/Plan (1) Unstable angina Status: Acute Comment: s/p CABG, continue statin and aspirin (2) Hypothyroidism Code(s): E03.9 - HYPOTHYROIDISM, UNSPECIFIED Status: Acute Qualifiers: Hypothyroidism type: unspecified Qualified Code(s): E03.9 - Hypothyroidism , unspecified Comment: stable, continue synthroid (3) Thrombocytopenia Code(s): D69.6 - THROMBOCYTOPENIA, UNSPECIFIED Status: Acute Comment: stable (4) CKD (chronic kidney disease) stage 3, GFR 30-59 ml/min Code(s): N18.3 - CHRONIC KIDNEY DISEASE, STAGE 3 (MODERATE) Status: Chronic Comment: stable. - Plan * . Review of Systems - Review of Systems Constitutional: negative: fever, chills, sweats, weakness, malaise Respiratory: negative: Cough, Shortness of Breath, SOB with Excertion, Pleuritic Pain, Wheezing Cardiovascular: negative: chest pain, palpitations, orthopnea, paroxysmal nocturnal dyspnea, edema, light headedness - Medications/Allergies Allergies/Adverse Reactions: Allergies Allergy/AdvReac Type Severity Reaction Status Date / Time No Known Drug Allergies Allergy Verified 12/30/17 21:12 Medications: Current Medications Acetaminophen (Tylenol) 650 mg PO Q6H PRN PRN Reason: Headache/Fever Or Mild Pain Acetaminophen/Codeine Phosphate (Tylenol #3) 1 tab PO Q4H PRN PRN Reason: Mild Pain (1-3) Acetaminophen/Codeine Phosphate (Tylenol #3) 2 tab PO Q4H PRN PRN Reason: Moderate Pain (4-6) Hydrocodone Bitart/Acetaminophen ([place] 5/325) 1 tab PO Q4H PRN PRN Reason: Moderate Pain (4-6) Last Admin: 01/02/18 18:16 Dose: 1 tab Hydrocodone Bitart/Acetaminophen ([place] 5/325) 2 tab PO Q4H PRN PRN Reason: Severe Pain (7-10) Last Admin: 01/04/18 05:04 Dose: 2 tab Al Hydroxide/Mg Hydroxide (Maalox) 30 ml PO Q4H PRN PRN Reason: Indigestion Albuterol/Ipratropium (Duoneb) 3 ml NEB [id number] PRN PRN Reason: SHORTNESS OF BREATH Amitriptyline HCl (Elavil) 25 mg PO [facility] Last Admin: 01/03/18 19:40 Dose: 25 mg Aspirin (Aspirin) [address] [facility] Last Admin: 01/04/18 08:05 Dose: 325 mg Atorvastatin Calcium (Lipitor) 80 mg PO [facility] Last Admin: 01/03/18 21:07 Dose: 80 mg Bisacodyl (Dulcolax) 10 mg PO Q12H PRN PRN Reason: Constipation Bisacodyl (Dulcolax) 10 mg [place] Q12H PRN PRN Reason: Constipation Clonazepam (Klonopin) [address] [facility] Last Admin: 01/04/18 08:04 Dose: 1 mg Dextrose/Water (Dextrose 50%) 25 gm SLOW IVP PRN PRN PRN Reason: PER HYPOGLYCEMIC PROTOCOL Docusate Sodium (Colace) [address] [facility] Last Admin: 01/04/18 08:05 Dose: 100 mg Famotidine (Pepcid) [address]OW [address]P Q12[address] [facility] Last Admin: 01/04/18 12:46 Dose: 20 mg Glucagon (Glucagon) 1 mg SC PRN PRN PRN Reason: PER HYPOGLYCEMIC PROTOCOL Guaifenesin/Dextromethorphan (Robitussin Dm) 15 ml PO Q4H PRN PRN Reason: Cough Hydralazine HCl (Apresoline) 10 mg SLOW IVP Q6H PRN PRN Reason: To Maintain SBP< 140mmHG Dextrose/Water (D5w) 1,000 mls @ 0 mls/hr IV INF PRN; As Directed PRN Reason: PRN HYPOGLYCEMIC PROTOCOL Insulin Human Regular (Humulin R) 0 units SC Q4H PRN; Protocol PRN Reason: POST OP SLIDING SCALE Last Admin: 01/04/18 05:56 Dose: 2 unit Levothyroxine Sodium (Synthroid) [address] [facility] Last Admin: 01/04/18 05:04 Dose: 100 mcg Magnesium Hydroxide (Milk Of Magnesium) 30 ml PO DAILYPRN PRN PRN Reason: Constipation Miscellaneous Information (Communication Order-Pharmacy) [address] [facility] Morphine Sulfate (Morphine) 2 mg IV Q15MIN PRN PRN Reason: Severe Pain (7-10) Nitroglycerin (Nitrostat) 0.4 mg SL Q5MIN PRN PRN Reason: Chest Pain Ondansetron HCl (Zofran) 4 mg IVP Q6H PRN PRN Reason: Nausea/Vomiting Paroxetine HCl (Paxil) [address] [facility] Last Admin: 01/04/18 08:05 Dose: 60 mg [Adderall 20 Mg (Tablet] 1.5 Tab) [address] [facility] Last Admin: 01/04/18 08:24 Dose: 1 each Adderall 20 Mg Tab 1.5 each PO 0800,1200 [facility] Last Admin: 01/04/18 12:46 Dose: 1.5 each Potassium Chloride (Kcl) 20 meq IVPB PRN PRN PRN Reason: K level </= 4.0 Pregabalin (Lyrica) [address] [facility] Last Admin: 01/04/18 08:04 Dose: 200 mg Promethazine HCl (Phenergan) 25 mg PO Q4H PRN PRN Reason: Nausea/Vomiting Promethazine HCl (Phenergan) 6.25 mg IM Q4H PRN PRN Reason: Nausea/Vomiting Sodium Chloride (Flush - Normal Saline) 10 ml IVF Q12HR [facility] Last Admin: 01/04/18 08:06 Dose: 10 ml Sodium Chloride (Flush - Normal Saline) 10 ml IVF PRN PRN PRN Reason: Saline Flush Tramadol HCl (Ultram) 50 mg PO Q6H PRN PRN Reason: Moderate Pain (4-6)
[2018-01-04] MEDS: Atorvastatin Calcium 40 MG TAB PO SCH (21:17)
[2018-01-04] MEDS: Amitriptyline HCl 25 MG TAB PO SCH (21:18)
[2018-01-05] MEDS: HYDROcodone/Acetaminophen 5/325 mg Tablet PO PRN ×5 (00:29→21:27)
[2018-01-05] MEDS: Levothyroxine Sodium 100 MCG TAB PO SCH (05:44)
[2018-01-05 06:42] LABS: #Eosinphils 0.6 thou/uL (0.0-0.7); #Lymphocytes 1.4 thou/uL (1.20-3.40); #Neutrophils 8.1 thou/uL (1.40-6.50); %Basophils 0.1 % (0.0-1.0); %Lymphocytes 12.8 % (21.0-51.0); %Monocytes 9.1 % (0.0-10.0); Hemoglobin 8.8 g/dL (14.0-18.0); Mean Corpuscular HGB CONC 35.2 g/dL (32.0-36.0); Mean Corpuscular Hemoglobin 33.2 pg (27.0-31.0); Mean Corpuscular Volume 94.4 fl (80.0-94.0); Mean Platelet Volume 8.1 fL (7.4-10.4); Platelet Count 93 thou/uL (130-400); RBC Distribution Width 12.6 % (11.5-14.5); Red Blood Cell (RBC) Count 2.66 mill/uL (4.70-6.10)
[2018-01-05 06:56] LABS: Anion Gap 13 mmol/L (10-20); BUN (Urea Nitrogen) 18 mg/dL (8.4-25.7); Calc. Creatinine Clearance 77 mL/min (70-130); Calcium 8.1 mg/dL (7.8-10.44); Carbon Dioxide 23 mmol/L (23-31); Chloride 102 mmol/L (98-107); Estimated GFR-MDRD 43; Glucose 103 mg/dL (80-115); Sodium 134 mmol/L (136-145)
[2018-01-05] MEDS ORDERED: diphenhydrAMINE 25 MG CAP PO PRN (08:10)
[2018-01-05] MEDS ORDERED: Mag-Al 1200 mg/1200 mg/30 ML UDCUP PO PRN (08:10)
[2018-01-05] MEDS ORDERED: Mineral Oil ENEMA PR PRN (08:10)
[2018-01-05] MEDS ORDERED: Artificial Tears 18 DROP/0.9 ML EA EYE PRN (08:10)
[2018-01-05] MEDS ORDERED: Guaifenesin DM 100-10/5 ML UDCUP PO PRN (08:10)
[2018-01-05] MEDS ORDERED: Bisacodyl 10 MG SUPP PR PRN (08:10)
[2018-01-05] MEDS ORDERED: Zolpidem Tartrate 5 MG TAB PO PRN (08:10)
[2018-01-05] MEDS ORDERED: Bisacodyl 5 MG TAB PO PRN (08:10)
[2018-01-05] MEDS ORDERED: Nitroglycerin 0.4 MG TAB (25 Tab Bottle) SL PRN (08:10)
[2018-01-05] MEDS ORDERED: Metolazone 5 MG TAB PO SCH (08:15)
[2018-01-05] MEDS: PARoxetine 20 MG TAB PO SCH (08:37)
[2018-01-05] MEDS: clonazePAM 1 MG TAB PO SCH ×2 (08:38→21:25)
[2018-01-05] MEDS: Docusate 100 MG CAP PO SCH ×2 (08:38→21:25)
[2018-01-05] MEDS: Aspirin 325 mg Enteric Coated Tablet PO SCH (08:41)
[2018-01-05] MEDS: Furosemide 40 MG TAB PO SCH (08:41)
[2018-01-05] MEDS: Famotidine 20 MG TAB PO SCH ×2 (08:42→21:25)
[2018-01-05] MEDS: Pregabalin 50 MG CAP PO SCH ×3 (09:03→21:26)
[2018-01-05] MEDS: ADDERALL 20 MG TAB PO SCH ×2 (09:03→12:40)
--- NOTE | 2018-01-05 13:14 | PRG ---
DATE OF SERVICE: 01/05/2018. SUBJECTIVE: This morning, he is weak, but he is better. He said he is walking. OBJECTIVE: VITAL SIGNS: Sats are 97% on room air, blood pressure 150/68, temperature 97, respirations 18. CHEST: Decreased breath sounds without any wheezing. CARDIAC: Normal S1, S2, no gallops. ABDOMEN: Soft, no masses. LABORATORY DATA: White count 11,000, H&H is 8 and 25, platelet count is decreased to 93. Creatinine is 1.63. IMPRESSION: 1. Status post coronary artery bypass graft. 2. Azotemia. 3. Thrombocytopenia. 4. Severe deconditioning. PLAN: Continue aggressive PT and supportive care.
--- NOTE | 2018-01-05 13:34 | PDOC.PN ---
- Subjective Encounter Start Date: 01/05/18 Encounter Start Time: 10:20 Pt seen for followup re: unstable angina. Feels better. Denies chest pain, shortness of breath, fevers or chills. - Objective MAR Reviewed: Yes Vital Signs & Weight: Vital Signs (12 hours) Temp Pulse Pulse Pulse Resp BP BP 01/05/18 12:34 99.1 F 87 20 01/05/18 12:07 97 95 150/68 H 123/66 01/05/18 10:00 99.7 F H 91 18 01/05/18 08:00 98.7 F 90 14 01/05/18 07:10 01/05/18 07:00 98.7 F 01/05/18 04:00 99 F BP Pulse Ox Pulse Ox 01/05/18 12:34 132/76 97 01/05/18 12:07 94 L 01/05/18 10:00 129/66 95 01/05/18 08:00 94 L 01/05/18 07:10 96 01/05/18 07:00 01/05/18 04:00 Weight Admit Weight 263 lb 14.293 oz Weight 263 lb 0.183 oz Most Recent Monitor Data Heart Rate from ECG 103 NIBP 118/71 NIBP BP-Mean 87 Respiration from ECG 23 SpO2 80 I&O: 01/04/18 01/05/18 01/06/18 06:59 06:59 06:59 Intake Total 1375 1300 300 Output Total 1635 540 750 Balance -260 760 -450 Result Diagrams: 01/05/18 05:40 01/05/18 05:40 Additional Labs: Accuchecks 01/05/18 01/05/18 01/04/18 10:47 05:37 21:31 POC Glucose 130 H 113 H 111 H 01/04/18 16:23 POC Glucose 129 H EKG Reviewed by me: Yes (Tele; NSR) Phys Exam - Physical Examination Constitutional: NAD HEENT: moist MMs Neck: supple Respiratory: clear to auscultation bilateral Cardiovascular: RRR Gastrointestinal: soft Neurological: moves all 4 limbs Psychiatric: normal affect Dx/Plan (1) Unstable angina Status: Acute Comment: s/p CABG,on aspirin and statin, will continue (2) Hypothyroidism Code(s): E03.9 - HYPOTHYROIDISM, UNSPECIFIED Status: Acute Qualifiers: Hypothyroidism type: unspecified Qualified Code(s): E03.9 - Hypothyroidism , unspecified Comment: stable (3) Thrombocytopenia Code(s): D69.6 - THROMBOCYTOPENIA, UNSPECIFIED Status: Acute Comment: stable , Plts 93 K today (4) CKD (chronic kidney disease) stage 3, GFR 30-59 ml/min Code(s): N18.3 - CHRONIC KIDNEY DISEASE, STAGE 3 (MODERATE) Status: Chronic Comment: stable. Cr improved to 1.68 today, continue to follow creatinine and lytes - Plan * . Review of Systems - Review of Systems Respiratory: negative: Cough, Shortness of Breath, SOB with Excertion, Pleuritic Pain, Wheezing Cardiovascular: negative: chest pain, palpitations, orthopnea, paroxysmal nocturnal dyspnea, edema, light headedness - Medications/Allergies Allergies/Adverse Reactions: Allergies Allergy/AdvReac Type Severity Reaction Status Date / Time No Known Drug Allergies Allergy Verified 12/30/17 21:12 Medications: Current Medications Acetaminophen (Tylenol) 650 mg PO Q6H PRN PRN Reason: Headache/Fever Or Mild Pain Acetaminophen/Codeine Phosphate (Tylenol #3) 1 tab PO Q4H PRN PRN Reason: Mild Pain (1-3) Acetaminophen/Codeine Phosphate (Tylenol #3) 2 tab PO Q4H PRN PRN Reason: Moderate Pain (4-6) Hydrocodone Bitart/Acetaminophen ([place] 5/325) 1 tab PO Q4H PRN PRN Reason: Moderate Pain (4-6) Last Admin: 01/02/18 18:16 Dose: 1 tab Hydrocodone Bitart/Acetaminophen ([place] 5/325) 2 tab PO Q4H PRN PRN Reason: Severe Pain (7-10) Last Admin: 01/05/18 12:40 Dose: 2 tab Al Hydroxide/Mg Hydroxide (Maalox) 30 ml PO Q4H PRN PRN Reason: Indigestion Albuterol/Ipratropium (Duoneb) 3 ml NEB [id number] PRN PRN Reason: SHORTNESS OF BREATH Amitriptyline HCl (Elavil) 25 mg PO HS [facility] Last Admin: 01/04/18 21:18 Dose: 25 mg Artificial Tears (Tears Naturale) 0 drop EA EYE PRN PRN PRN Reason: Dry Eyes Aspirin (Ecotrin) 325 mg PO DAILY [facility] Last Admin: 01/05/18 08:41 Dose: 325 mg Atorvastatin Calcium (Lipitor) 80 mg PO HS [facility] Last Admin: 01/04/18 21:17 Dose: 80 mg Bisacodyl (Dulcolax) 10 mg PO Q12H PRN PRN Reason: Constipation Bisacodyl (Dulcolax) 10 mg [place] Q12H PRN PRN Reason: Constipation Clonazepam (Klonopin) 1 mg PO BID [facility] Last Admin: 01/05/18 08:38 Dose: 1 mg Dextrose/Water (Dextrose 50%) 25 gm SLOW IVP PRN PRN PRN Reason: PER HYPOGLYCEMIC PROTOCOL Diphenhydramine HCl (Benadryl) 25 mg PO Q6H PRN PRN Reason: Itching & Insomnia or Rohit Keith Docusate Sodium (Colace) 100 mg PO BID [facility] Last Admin: 01/05/18 08:38 Dose: 100 mg Enalapril Maleate (Vasotec) 2.5 mg PO BID [facility] Famotidine (Pepcid) 20 mg PO BID [facility] Last Admin: 01/05/18 08:42 Dose: 20 mg Furosemide (Lasix) 40 mg PO DAILY [facility] Last Admin: 01/05/18 08:41 Dose: 40 mg Glucagon (Glucagon) 1 mg SC PRN PRN PRN Reason: PER HYPOGLYCEMIC PROTOCOL Guaifenesin/Dextromethorphan (Robitussin Dm) 15 ml PO Q4H PRN PRN Reason: Cough Hydralazine HCl (Apresoline) 10 mg SLOW IVP Q6H PRN PRN Reason: To Maintain SBP< 140mmHG Dextrose/Water (D5w) 1,000 mls @ 0 mls/hr IV INF PRN; As Directed PRN Reason: PRN HYPOGLYCEMIC PROTOCOL Insulin Human Regular (Humulin R) 0 units SC Q4H PRN; Protocol PRN Reason: POST OP SLIDING SCALE Last Admin: 01/04/18 05:56 Dose: 2 unit Levothyroxine Sodium (Synthroid) 100 mcg PO 0600 [facility] Last Admin: 01/05/18 05:44 Dose: 100 mcg Magnesium Hydroxide (Milk Of Magnesium) 30 ml PO DAILYPRN PRN PRN Reason: Constipation Mineral Oil (Fleet Mineral Oil) 133 ml [place] DAILYPRN PRN PRN Reason: Constipation Morphine Sulfate (Morphine) 2 mg IV Q15MIN PRN PRN Reason: Severe Pain (7-10) Nitroglycerin (Nitrostat) 0.4 mg SL Q5MIN PRN PRN Reason: Chest Pain Nitroglycerin (Nitrostat) 0.4 mg SL Q5MIN PRN PRN Reason: Chest Pain Ondansetron HCl (Zofran) 4 mg IVP Q6H PRN PRN Reason: Nausea/Vomiting Paroxetine HCl (Paxil) 60 mg PO DAILY [facility] Last Admin: 01/05/18 08:37 Dose: 60 mg [Adderall 20 Mg (Tablet] 1.5 Tab) 0 each PO ASDIR [facility] Last Admin: 01/04/18 08:24 Dose: 1 each Adderall 20 Mg Tab 1.5 each PO 0800,1200 [facility] Last Admin: 01/05/18 12:40 Dose: 1.5 each Potassium Chloride (Kcl) 20 meq IVPB PRN PRN PRN Reason: K level </= 4.0 Potassium Chloride (Klor-Con 10) 10 meq PO QAM-[facility] Pregabalin (Lyrica) 200 mg PO TID [facility] Last Admin: 01/05/18 09:03 Dose: 200 mg Promethazine HCl (Phenergan) 25 mg PO Q4H PRN PRN Reason: Nausea/Vomiting Promethazine HCl (Phenergan) 6.25 mg IM Q4H PRN PRN Reason: Nausea/Vomiting Sodium Chloride (Flush - Normal Saline) 10 ml IVF Q12HR [facility] Last Admin: 01/05/18 09:05 Dose: 10 ml Sodium Chloride (Flush - Normal Saline) 10 ml IVF PRN PRN PRN Reason: Saline Flush Tramadol HCl (Ultram) 50 mg PO Q6H PRN PRN Reason: Moderate Pain (4-6) Zolpidem Tartrate (Ambien) 5 mg PO HSPRN PRN PRN Reason: Insomnia
[2018-01-05] MEDS: Amitriptyline HCl 25 MG TAB PO SCH (21:25)
[2018-01-05] MEDS: Atorvastatin Calcium 40 MG TAB PO SCH (21:25)
[2018-01-06] MEDS: Levothyroxine Sodium 100 MCG TAB PO SCH (06:12)
[2018-01-06] MEDS: HYDROcodone/Acetaminophen 5/325 mg Tablet PO PRN ×3 (06:15→21:12)
[2018-01-06] MEDS: Potassium Chloride 10 MEQ TAB PO SCH (08:11)
[2018-01-06] MEDS: Aspirin 325 mg Enteric Coated Tablet PO SCH (08:11)
[2018-01-06] MEDS: clonazePAM 1 MG TAB PO SCH ×2 (08:12→21:07)
[2018-01-06] MEDS: Pregabalin 50 MG CAP PO SCH ×3 (08:12→21:08)
[2018-01-06] MEDS: Famotidine 20 MG TAB PO SCH ×2 (08:12→21:07)
[2018-01-06] MEDS: Furosemide 40 MG TAB PO SCH (08:13)
[2018-01-06] MEDS: Docusate 100 MG CAP PO SCH ×2 (08:13→21:07)
[2018-01-06] MEDS: PARoxetine 20 MG TAB PO SCH (08:13)
[2018-01-06] MEDS: ADDERALL 20 MG PO SCH ×2 (09:49→09:50)
[2018-01-06] MEDS: ADDERALL 20 MG TAB PO SCH ×2 (09:51→12:42)
--- NOTE | 2018-01-06 12:31 | PDOC.PN ---
- Subjective Encounter Start Date: 01/06/18 Encounter Start Time: 09:20 Pt seen for followup re: unstable angina. Denies chest pain, shortness of breath, fevers or chills. No nausea or vomiting. - Objective Vital Signs & Weight: Vital Signs (12 hours) Temp Pulse Pulse Pulse Resp BP BP 01/06/18 12:00 98.9 F 91 20 01/06/18 08:56 117 H 94 102/62 01/06/18 08:48 101 H 102 H 102/62 01/06/18 08:13 100/57 L 01/06/18 08:00 98.2 F 82 21 H 01/06/18 04:00 98.4 F 80 18 01/06/18 00:54 BP BP Pulse Ox Pulse Ox Pulse Ox 01/06/18 12:00 91/58 L 98 01/06/18 08:56 115/55 L 96 01/06/18 08:48 117/63 96 94 L 01/06/18 08:13 01/06/18 08:00 113/63 93 L 01/06/18 04:00 97/70 96 01/06/18 00:54 96 Weight Admit Weight 263 lb 14.293 oz Weight 282 lb 1.6 oz Most Recent Monitor Data Heart Rate from ECG 103 NIBP 118/71 NIBP BP-Mean 87 Respiration from ECG 23 SpO2 80 I&O: 01/05/18 01/06/18 01/07/18 06:59 06:59 06:59 Intake Total 1300 1460 Output Total 540 3100 Balance 760 -1640 Result Diagrams: 01/05/18 05:40 01/05/18 05:40 Additional Labs: Accuchecks 01/06/18 01/06/18 01/05/18 10:32 06:14 20:24 POC Glucose 112 H 107 130 H 01/05/18 16:42 POC Glucose 119 H Phys Exam - Physical Examination Constitutional: NAD HEENT: moist MMs Neck: supple Respiratory: clear to auscultation bilateral Cardiovascular: RRR Gastrointestinal: soft Neurological: moves all 4 limbs Psychiatric: normal affect Dx/Plan (1) Unstable angina Status: Acute Comment: s/p CABG, continue statin and aspirin (2) Hypothyroidism Code(s): E03.9 - HYPOTHYROIDISM, UNSPECIFIED Status: Acute Qualifiers: Hypothyroidism type: unspecified Qualified Code(s): E03.9 - Hypothyroidism , unspecified Comment: stable, continue synthroid (3) Thrombocytopenia Code(s): D69.6 - THROMBOCYTOPENIA, UNSPECIFIED Status: Acute Comment: stable (4) CKD (chronic kidney disease) stage 3, GFR 30-59 ml/min Code(s): N18.3 - CHRONIC KIDNEY DISEASE, STAGE 3 (MODERATE) Status: Chronic Comment: stable. - Plan * . Review of Systems - Review of Systems Constitutional: negative: fever, chills, sweats, weakness, malaise Cardiovascular: negative: chest pain, palpitations, orthopnea, paroxysmal nocturnal dyspnea, edema, light headedness - Medications/Allergies Allergies/Adverse Reactions: Allergies Allergy/AdvReac Type Severity Reaction Status Date / Time No Known Drug Allergies Allergy Verified 12/30/17 21:12 Medications: Current Medications Acetaminophen (Tylenol) 650 mg PO Q6H PRN PRN Reason: Headache/Fever Or Mild Pain Acetaminophen/Codeine Phosphate (Tylenol #3) 1 tab PO Q4H PRN PRN Reason: Mild Pain (1-3) Acetaminophen/Codeine Phosphate (Tylenol #3) 2 tab PO Q4H PRN PRN Reason: Moderate Pain (4-6) Hydrocodone Bitart/Acetaminophen ([place] 5/325) 1 tab PO Q4H PRN PRN Reason: Moderate Pain (4-6) Last Admin: 01/02/18 18:16 Dose: 1 tab Hydrocodone Bitart/Acetaminophen ([place] 5/325) 2 tab PO Q4H PRN PRN Reason: Severe Pain (7-10) Last Admin: 01/06/18 06:15 Dose: 2 tab Al Hydroxide/Mg Hydroxide (Maalox) 30 ml PO Q4H PRN PRN Reason: Indigestion Albuterol/Ipratropium (Duoneb) 3 ml NEB [id number] PRN PRN Reason: SHORTNESS OF BREATH Amitriptyline HCl (Elavil) 25 mg PO HS PENDING SALE TO [facility] Last Admin: 01/05/18 21:25 Dose: 25 mg Artificial Tears (Tears Naturale) 0 drop EA EYE PRN PRN PRN Reason: Dry Eyes Aspirin (Ecotrin) 325 mg PO DAILY PENDING SALE TO [facility] Last Admin: 01/06/18 08:11 Dose: 325 mg Atorvastatin Calcium (Lipitor) 80 mg PO HS PENDING SALE TO [facility] Last Admin: 01/05/18 21:25 Dose: 80 mg Bisacodyl (Dulcolax) 10 mg PO Q12H PRN PRN Reason: Constipation Bisacodyl (Dulcolax) 10 mg [place] Q12H PRN PRN Reason: Constipation Clonazepam (Klonopin) 1 mg PO BID PENDING SALE TO [facility] Last Admin: 01/06/18 08:12 Dose: 1 mg Dextrose/Water (Dextrose 50%) 25 gm SLOW IVP PRN PRN PRN Reason: PER HYPOGLYCEMIC PROTOCOL Diphenhydramine HCl (Benadryl) 25 mg PO Q6H PRN PRN Reason: Itching & Insomnia or Rohit Keith Docusate Sodium (Colace) 100 mg PO BID PENDING SALE TO [facility] Last Admin: 01/06/18 08:13 Dose: 100 mg Enalapril Maleate (Vasotec) 2.5 mg PO BID PENDING SALE TO [facility] Last Admin: 01/06/18 08:13 Dose: 2.5 mg Famotidine (Pepcid) 20 mg PO BID PENDING SALE TO [facility] Last Admin: 01/06/18 08:12 Dose: 20 mg Furosemide (Lasix) 40 mg PO DAILY PENDING SALE TO [facility] Last Admin: 01/06/18 08:13 Dose: 40 mg Glucagon (Glucagon) 1 mg SC PRN PRN PRN Reason: PER HYPOGLYCEMIC PROTOCOL Guaifenesin/Dextromethorphan (Robitussin Dm) 15 ml PO Q4H PRN PRN Reason: Cough Hydralazine HCl (Apresoline) 10 mg SLOW IVP Q6H PRN PRN Reason: To Maintain SBP< 140mmHG Dextrose/Water (D5w) 1,000 mls @ 0 mls/hr IV INF PRN; As Directed PRN Reason: PRN HYPOGLYCEMIC PROTOCOL Insulin Human Regular (Humulin R) 0 units SC Q4H PRN; Protocol PRN Reason: POST OP SLIDING SCALE Last Admin: 01/04/18 05:56 Dose: 2 unit Levothyroxine Sodium (Synthroid) 100 mcg PO 0600 PENDING SALE TO [facility] Last Admin: 01/06/18 06:12 Dose: 100 mcg Magnesium Hydroxide (Milk Of Magnesium) 30 ml PO DAILYPRN PRN PRN Reason: Constipation Mineral Oil (Fleet Mineral Oil) 133 ml [place] DAILYPRN PRN PRN Reason: Constipation Morphine Sulfate (Morphine) 2 mg IV Q15MIN PRN PRN Reason: Severe Pain (7-10) Nitroglycerin (Nitrostat) 0.4 mg SL Q5MIN PRN PRN Reason: Chest Pain Nitroglycerin (Nitrostat) 0.4 mg SL Q5MIN PRN PRN Reason: Chest Pain Ondansetron HCl (Zofran) 4 mg IVP Q6H PRN PRN Reason: Nausea/Vomiting Paroxetine HCl (Paxil) 60 mg PO DAILY PENDING SALE TO [facility] Last Admin: 01/06/18 08:13 Dose: 60 mg [Adderall 20 Mg (Tablet] 1.5 Tab) 0 each PO ASDIR PENDING SALE TO [facility] Last Admin: 01/06/18 09:49 Dose: 1 each Adderall 20 Mg Tab 1.5 each PO 0800,1200 PENDING SALE TO [facility] Last Admin: 01/06/18 09:51 Dose: Not Given Potassium Chloride (Kcl) 20 meq IVPB PRN PRN PRN Reason: K level </= 4.0 Potassium Chloride (Klor-Con 10) 10 meq PO QAM-WM PENDING SALE TO [facility] Last Admin: 01/06/18 08:11 Dose: 10 meq Pregabalin (Lyrica) 200 mg PO TID PENDING SALE TO [facility] Last Admin: 01/06/18 08:12 Dose: 200 mg Promethazine HCl (Phenergan) 25 mg PO Q4H PRN PRN Reason: Nausea/Vomiting Promethazine HCl (Phenergan) 6.25 mg IM Q4H PRN PRN Reason: Nausea/Vomiting Sodium Chloride (Flush - Normal Saline) 10 ml IVF Q12HR PENDING SALE TO [facility] Last Admin: 01/06/18 08:14 Dose: 10 ml Sodium Chloride (Flush - Normal Saline) 10 ml IVF PRN PRN PRN Reason: Saline Flush Tramadol HCl (Ultram) 50 mg PO Q6H PRN PRN Reason: Moderate Pain (4-6) Zolpidem Tartrate (Ambien) 5 mg PO HSPRN PRN PRN Reason: Insomnia
[2018-01-06] MEDS ORDERED: ADDERALL 20 MG PO SCH (12:45)
--- NOTE | 2018-01-06 13:59 | STRESS ---
Acquisition Time: 2017-12-31 10:04:45 Total Exercise Time: 00:01:00 Test Indications: CHEST PAIN Medications: Protocol: LEXISCAN Max HR: 080 BPM 51% of Pred: 156 BPM Max BP: 106/060 mmHG Max Work Load: 1.0 METS RESTING ECG: NORMAL SINUS RHYTHM AT 52 BPM SYMPTOMS: NONE NORMAL BP RESPONSE ECTOPY: NONE ECG STRESS: NO SIGNIFICANT CHANGES INTERPRETATION: AWAIT NUCLEAR IMAGES FOR DEFINITIVE DIAGNOSIS Confirmed by TING ANDREW ([id number]), scientific publications editor LOU SHANE ([id number]) on 01/06/2018 1:58:53 PM Referred By: MD Costa LO Confirmed By:TING ANDREW
--- NOTE | 2018-01-06 16:57 | PRG ---
DATE OF SERVICE: 01/06/2018 SERVICE: Pulmonary Medicine. INTERVAL HISTORY: The patient is doing fine from a respiratory standpoint. He is breathing comforta earl. He denies any current nausea, vomiting, fevers or chills. He continues to have persistent fati ginny, but this is normal for him. PHYSICAL EXAMINATION: VITAL SIGNS: Afebrile, pulse 91, blood pressure 91/58, respirations 20, saturation 98% on room air. GENERAL: The patient is awake, alert, no apparent distress. LUNGS: Decent air entry. I do not appreciate wheezing, rhonchi or crackles. HEART: Normal rate, regular. Median sternotomy. ABDOMEN: He has a form of erythema showing advancing on the superior aspect of the incision. Abdome n is soft, nontender, nondistended. Bowel sounds are positive. MUSCULOSKELETAL: No cyanosis or clubbing. There is trace to 1+ pitting in the left lower extremity and trace pitting in the right lower extremity. GENITOURINARY: No Fernández. NEUROLOGIC: Grossly nonfocal. LABORATORY DATA: WBC 11.0, hemoglobin 8.8, platelets 93,000. INR 1.4. Basic metabolic profile is e ssentially unremarkable except for a creatinine of 1.63, which is stable. ASSESSMENT: 1. Acute hypoxic respiratory failure, resolved. 2. Coronary artery disease, status post coronary artery bypass graft, postoperative day #4. 3. Type 2 diabetes mellitus. 4. Cellulitis, possible. DISCUSSION AND PLAN: I have drawn the outline of the advancing erythema which is fairly closely appr oximated the sternal wound at this time. If it advances, we will get toussaint cultures and empirically st art antibiotics covering cellulitis. Pulmonary Critical Care will continue to follow along for the t sayra being. I will repeat laboratories including a CBC in the morning with focus on the white blood c ell count.
[2018-01-06] MEDS: Amitriptyline HCl 25 MG TAB PO SCH (21:05)
[2018-01-06] MEDS: Atorvastatin Calcium 40 MG TAB PO SCH (21:07)
[2018-01-06] MEDS ORDERED: Amiodarone HCl 150 MG, Admixture Fee 1 EACH in Dextrose 5% in Water 100 ML IVPB SCH (23:15)
[2018-01-06 23:23] LABS: ALT (SGPT) 23 U/L (8-55); AST (SGOT) 70 U/L (5-34); Albumin 3.7 g/dL (3.4-4.8); Alkaline Phosphatase 60 U/L (40-150); Bilirubin, Direct 0.4 mg/dL (0.1-0.3); Bilirubin, Total 0.9 mg/dL (0.2-1.2); Magnesium 1.6 mg/dL (1.6-2.6); Potassium 3.4 mmol/L (3.5-5.1); Protein, Total 6.5 g/dL (5.8-8.1)
[2018-01-06] MEDS: Amiodarone HCl 450 MG, Admixture Fee 1 EACH in Dextrose 5% in Water 250 ML IVPB SCH (23:35)
[2018-01-07] MEDS: Levothyroxine Sodium 100 MCG TAB PO SCH (05:26)
[2018-01-07 06:17] LABS: Anion Gap 12 mmol/L (10-20); BUN (Urea Nitrogen) 20 mg/dL (8.4-25.7); Calc. Creatinine Clearance 74 mL/min (70-130); Calcium 8.3 mg/dL (7.8-10.44); Carbon Dioxide 27 mmol/L (23-31); Chloride 99 mmol/L (98-107); Estimated GFR-MDRD 38; Glucose 122 mg/dL (80-115); Magnesium 1.7 mg/dL (1.6-2.6); Phosphorus 2.8 mg/dL (2.3-4.7); Potassium 3.3 mmol/L (3.5-5.1); Sodium 135 mmol/L (136-145)
[2018-01-07 06:35] LABS: Mean Corpuscular HGB CONC 36.3 g/dL (32.0-36.0); Mean Corpuscular Hemoglobin 33.9 pg (27.0-31.0); Mean Corpuscular Volume 93.4 fl (80.0-94.0); Mean Platelet Volume 7.6 fL (7.4-10.4); Platelet Count 116 thou/uL (130-400); RBC Distribution Width 12.6 % (11.5-14.5); Red Blood Cell (RBC) Count 2.37 mill/uL (4.70-6.10); White Blood Cell (WBC) Count 5.6 thou/uL (4.8-10.8)
[2018-01-07 06:44] LABS: Eosinophils 10 % (0-10); Lymphocytes 23 % (21-51); MDiff Complete? YES; Monocytes 14 % (0-10); Neutrophil 53 % (42-75); PLT Morphology Comment Appears Decreased
[2018-01-07] MEDS: Furosemide 40 MG TAB PO SCH (08:34)
[2018-01-07] MEDS: Aspirin 325 mg Enteric Coated Tablet PO SCH (08:34)
[2018-01-07] MEDS: Potassium Chloride 10 MEQ TAB PO SCH (08:34)
[2018-01-07] MEDS: Famotidine 20 MG TAB PO SCH ×2 (08:35→20:09)
[2018-01-07] MEDS: Pregabalin 50 MG CAP PO SCH ×3 (08:35→20:09)
[2018-01-07] MEDS: clonazePAM 1 MG TAB PO SCH ×2 (08:35→20:08)
[2018-01-07] MEDS: Docusate 100 MG CAP PO SCH ×2 (08:35→20:10)
[2018-01-07] MEDS: PARoxetine 20 MG TAB PO SCH (08:36)
[2018-01-07] MEDS ORDERED: Magnesium Sulfate 2 GM in Sodium Chloride 0.9% 100 ML IVPB SCH (09:15)
[2018-01-07] MEDS ORDERED: Vancomycin HCl 1.5 GM in Sodium Chloride 0.9% 250 ML 300 ML IVPB SCH (09:15)
[2018-01-07] MEDS ORDERED: Potassium Chloride 20 MEQ TAB PO SCH (09:15)
--- NOTE | 2018-01-07 09:31 | PRG ---
DATE OF SERVICE: 01/07/2018 SERVICE: Pulmonary Medicine INTERVAL HISTORY: The patient did okay last night. He had a hypertensive event. He is upset that h is blood pressure medication was held. Either way, this morning, he had some fever and rigor. He boykin d a temperature of 101. He denies any current nausea, vomiting, fevers or chills. He indicates that once again he would like to stay in bed today. PHYSICAL EXAMINATION: VITAL SIGNS: Currently, temperature is 101.0, pulse 124 and irregular, blood pressure 101/68, respir ations 21, saturation 94% on 2 liters nasal cannula. GENERAL: The patient is awake and alert. No apparent distress. LUNGS: Clear to auscultation bilaterally with no wheezing, rales or rhonchi. HEART: Tachycardic. Irregular. Sternal wound is well approximated. I do not see any purulence. T here is a rim of erythema surrounding the superior portion of the sternal wound. That being said, th at line is not advancing. If anything, it is regressing slightly. ABDOMEN: Soft, nontender, nondistended. Bowel sounds are positive. MUSCULOSKELETAL: No cyanosis or clubbing. There is trace pitting in the bilateral lower extremities . NEUROLOGIC: Grossly nonfocal. LABORATORY DATA: WBC 5.6, hemoglobin 8.0 and gently down trending, platelets 116,000 and improving. Neutrophil count is 53%. Creatinine 1.80 and gently up trending, potassium 3.3, sodium 135. Magnes ium 1.7, phosphorus 2.8. ASSESSMENT: 1. Acute hypoxic respiratory failure, resolved. 2. Coronary artery disease, status post coronary bypass graft, postop day #5. 3. Atrial fibrillation with rapid ventricular response. 4. Type 2 diabetes mellitus. 5. Sepsis without end organ damage. 6. Cellulitis, suspected. DISCUSSION AND PLAN: We will toussaint culture him. I put him on vancomycin and Zosyn empirically. Magne sium and potassium will be replaced today. He will remain in location for the time being, but if his blood pressures started to fall off, he may need to be moved to the ICU. He is minimally volume ove rloaded, but I am going to hold off on providing him with any Lasix with this new infectious process that is developing.
[2018-01-07] MEDS: ADDERALL 20 MG TAB PO SCH ×2 (09:47→13:29)
[2018-01-07] MEDS: Amiodarone HCl 450 MG, Admixture Fee 1 EACH in Dextrose 5% in Water 250 ML IVPB SCH ×2 (09:47→22:59)
[2018-01-07] MEDS: Atenolol 25 MG TAB PO SCH ×2 (09:51→20:08)
[2018-01-07] MEDS ORDERED: Magnesium 2 GM/NS 0.9% 100 ML 2 GM in Premix Bag 1 BAG IVPB SCH (10:00)
[2018-01-07] MEDS ORDERED: Vancomycin HCl 2.5 GM in Sodium Chloride 0.9% 500 ML IVPB SCH (11:00)
--- NOTE | 2018-01-07 11:40 | RAD ---
PORTABLE UPRIGHT FRONTAL CHEST: Date: 01/07/18 COMPARISON: 01/04/18. HISTORY: Possible sepsis, open heart surgery. FINDINGS: There is a left-sided vascular catheter with distal tip overlying the region of the cavoatrial juncti on. Midline sternotomy wires and mediastinal clips are present. Drainage catheter overlying the left hemithorax has been removed since the prior exam. There is mild persistent hazy increased linear dens ity in the left infrahilar region/medial left lung base, which may represent volume loss or infiltrat e. No lobar consolidation or alveolar edema. IMPRESSION: Postoperative changes as above. Persistent mild hazy density in the left base, nonspecific. POS: [facility]
[2018-01-07] MEDS: Piperacillin/Tazobactam 2.25 GM in Sodium Chloride 0.9% 100 ML IVPB SCH ×3 (12:01→23:01)
[2018-01-07] MEDS: HYDROcodone/Acetaminophen 5/325 mg Tablet PO PRN ×2 (12:18→23:13)
[2018-01-07] MEDS ORDERED: ALPRAZolam 0.25 MG TAB PO SCH (13:00)
--- NOTE | 2018-01-07 13:37 | PDOC.PN ---
- Subjective Encounter Start Date: 01/07/18 Encounter Start Time: 13:20 Subjective: f/u s/p CABG POD #5 with fever today. Pt c/o not getting the right medicine -: for depression and BP. No increased SOB, cough. No dysuria. - Objective MAR Reviewed: Yes Vital Signs & Weight: Vital Signs (12 hours) Temp Pulse Resp BP BP Pulse Ox 01/07/18 12:00 100.1 F H 127 H 20 103/65 01/07/18 09:51 101/68 01/07/18 08:34 101/68 01/07/18 08:00 101.0 F H 124 H 21 H 98/62 97 01/07/18 03:20 97.8 F 108 H 18 96/63 94 L Weight Admit Weight 263 lb 14.293 oz Weight 278 lb 9.6 oz Most Recent Monitor Data Heart Rate from ECG 103 NIBP 118/71 NIBP BP-Mean 87 Respiration from ECG 23 SpO2 80 I&O: 01/06/18 01/07/18 01/08/18 06:59 06:59 06:59 Intake Total 1460 1700 Output Total 3100 1950 Balance -1640 -250 Result Diagrams: 01/07/18 05:04 01/07/18 05:04 Additional Labs: Accuchecks 01/07/18 01/07/18 01/06/18 11:09 06:03 20:18 POC Glucose 128 H 156 H 81 01/06/18 16:33 POC Glucose 97 Radiology Reviewed by me: Yes (PCXR - LL basilar infiltrate) EKG Reviewed by me: Yes (Tele - A-fib/flutter in 120-130's) Phys Exam - Physical Examination anxious, alert HEENT: PERRLA, sclera anicteric, oral pharynx no lesions Neck: no nodes, no JVD, supple, full ROM Respiratory: no wheezing, no rales, no rhonchi, clear to auscultation bilateral tachycardic S1, S2 Cardiovascular: no significant murmur, no rub, irregular Gastrointestinal: soft, non-tender, no distention, positive bowel sounds Musculoskeletal: no edema, pulses present Neurological: non-focal, normal sensation, moves all 4 limbs Psychiatric: normal affect, A&O x 3 Skin: no rash, normal turgor, cap refill <2 seconds Dx/Plan (1) Febrile Code(s): R50.9 - FEVER, UNSPECIFIED Status: Acute Comment: concern for post- op fever, PCXR with LLL basilar infiltrate, blood/urine cx pending, Vancomycin and Zosyn empirically (2) Atrial fibrillation with RVR Code(s): I48.91 - UNSPECIFIED ATRIAL FIBRILLATION Status: Acute Comment: Continue Amiodarone gtt, Atenolol 25mg BID (3) Hypokalemia Code(s): E87.6 - HYPOKALEMIA Status: Acute Comment: KCL 10meq daily, repeat K+ level in am (4) Anxiety Code(s): F41.9 - ANXIETY DISORDER, UNSPECIFIED Status: Acute Comment: Add Xanax 0.25mg po BID, Paxil 60mg daily (5) CKD (chronic kidney disease) stage 3, GFR 30-59 ml/min Code(s): N18.3 - CHRONIC KIDNEY DISEASE, STAGE 3 (MODERATE) Status: Chronic Comment: Avoid nephrotoxic meds and limit contrast exposure (6) Status post coronary artery bypass graft Code(s): Z95.1 - PRESENCE OF AORTOCORONARY BYPASS GRAFT Status: Acute Comment: POD #5, 2v CABG, Cardiac rehab - Plan continue antibiotics, PT/OT, director social welfare, out of bed/ambulate, DVT proph w/ SCDs Stable overall -: Check Urine/blood cx -: Start Vancomycin/Zosyn empirically -: Incentive spirometry -: OOB/ambulate * Rehab options * KCL supplementation * AM lab: BMP, CBC
[2018-01-07] MEDS ORDERED: Digoxin 0.5 MG/2 ML AMP SLOW IVP SCH (13:45)
[2018-01-07] MEDS: Atorvastatin Calcium 40 MG TAB PO SCH (20:08)
[2018-01-07] MEDS: Amitriptyline HCl 25 MG TAB PO SCH (20:09)
[2018-01-07] MEDS: Apixaban 5 MG TAB PO SCH (20:09)
[2018-01-07] MEDS ORDERED: Vancomycin HCl 1 GM in Premix Bag 1 BAG IVPB SCH (21:00)
--- NOTE | 2018-01-07 22:40 | CON ---
ELECTROPHYSIOLOGY CONSULTATION DATE OF CONSULTATION: 01/07/2018 REFERRING PHYSICIAN: Dr. Daren Mccormack. REASON FOR CONSULTATION: Atrial fibrillation and atrial flutter. HISTORY OF PRESENT ILLNESS: Mr. Stafford is a 62-year-old patient with a past medical history significan t for coronary artery disease. He initially presented to the emergency room, reporting chest pain an d underwent left heart catheterization revealing extensive coronary artery disease, requiring bypass grafting. This was performed on 01/02/2018, which time he had a 2-vessel bypass. His initial recove ry was fairly uneventful, but unfortunately he did begin to experience atrial fibrillation, he was pl aced on amiodarone and his atrial fibrillation organized to typical atrial flutter. His ventricular rates are poorly controlled. He is currently sustaining 140 beats per minute. His blood pressure boykin s dropped with this sustained elevated heart rate as well. He denies any history of any abnormal rhy thms in the past and is somewhat confused about treatment options and widely cannot resume home medic ations for treating this new problem. Today, Mr. Stafford denies any palpitations, chest pain, pressure, syncope or near syncope. He does repo rt chronic fatigue and low energy levels, which are not new. He does continue to have postoperative thoracic pain around his sternotomy and is minimally active postoperatively. REVIEW OF SYSTEMS: Twelve-point review of systems was conducted and negative except that listed abov e in the history of present illness. PAST MEDICAL HISTORY: 1. Coronary artery disease, status post coronary artery bypass grafting 2-vessel on 01/02/2018. 2. Type 2 diabetes mellitus. 3. Morbid obesity. 4. Dyslipidemia. 5. Hypertension. 6. Fibromyalgia. 7. Chronic fatigue syndrome. 8. Chronic kidney disease. SOCIAL HISTORY: Negative for current alcohol, tobacco, or drug use. FAMILY HISTORY: Negative for sudden cardiac or early onset of coronary artery disease. ALLERGIES: No known drug allergies. HOME MEDICATIONS: Elavil 25 mg p.o. at bedtime, Lyrica 200 mg p.o. t.i.d., levothyroxine 100 mcg p.o . q.a.m., Tenormin 50 mg p.o. b.i.d., clonazepam 0.5 mg p.o. b.i.d., Phenergan 25 mg q.4 hours as nee ded, fish oil b.i.d., paroxetine 1.5 tablets daily, enalapril 20 mg daily, Adderall 20 mg tablets 1.5 tablets p.o. as directed. PHYSICAL EXAMINATION: VITAL SIGNS: Most recent vital signs; temperature 100.1 (T-max 101.0), heart rate 127, blood pressur e 101/68, respirations 20, oxygen saturation 97% on room air, blood pressure 103/65. GENERAL: This is a well-nourished, chronically ill-appearing gentleman, in no apparent distress. He is resting in bed. He is alert and oriented, but appears very limited historian. NECK: Supple without jugular venous distention. LUNGS: Clear to auscultation bilaterally. Respirations are even and unlabored. CARDIAC: His heart rate is rapid and irregular. PMI is nondisplaced. Fresh sternotomy incision is appreciated. ABDOMEN: Soft, obese, nontender. Positive bowel sounds are noted throughout. EXTREMITIES: His extremities are warm and dry to touch. His compression socks extending above the k nee bilaterally. NEUROLOGIC: Grossly intact and nonfocal. DATABASE: On 01/07, WBC 5.6, hemoglobin 8.0, hematocrit 22.1, platelet count 116,000. Chemistry: S odium 135, potassium 3.3, BUN is 20, creatinine is 1.8. TSH is 1.6. Chest x-ray on 01/07, postopera tive changes, nonspecific changes present. No consolidation, no edema. Review of telemetry and EKGs reveal atrial flutter with RVR as well as atrial fibrillation previously . Currently in what appears to be typical atrial flutter with elevated rates, sustaining between 120 and 140 beats per minute. IMPRESSION: 1. Post-bypass, atrial fibrillation which organized into typical atrial flutter, currently on amioda shahriar, though with very poor rate control. Also on IV digoxin. 2. Mild hypertension. 3. Fever, concern for sepsis postoperatively, undergoing toussaint culture and empiric antibiotic coverage initiated. PLAN: 1. Continue amiodarone. 2. Recommend AMARILIS and cardioversion tomorrow morning if patient is agreeable. If blood cultures are negative and the patient is not septic, consider CTI ablation for his typical flutter in the future, but at this time, we will hold off on ablation until culture is resulted. 3. Recommend initiation of OAC once thrombocytopenia is felt to no longer be an issue. Thank you for allowing us to participate in the care of this patient.
[2018-01-07] MEDS ORDERED: Budesonide 0.5 MG/2 ML NEB ONE (22:53)
[2018-01-07] MEDS: Vancomycin HCl 1.25 GM in Sodium Chloride 0.9% 250 ML 250 ML IVPB SCH (23:00)
[2018-01-08 05:51] LABS: Anion Gap 13 mmol/L (10-20); BUN (Urea Nitrogen) 19 mg/dL (8.4-25.7); Calc. Creatinine Clearance 74 mL/min (70-130); Calcium 8.3 mg/dL (7.8-10.44); Carbon Dioxide 24 mmol/L (23-31); Chloride 103 mmol/L (98-107); Estimated GFR-MDRD 38; Glucose 105 mg/dL (80-115); Potassium 4.1 mmol/L (3.5-5.1); Sodium 136 mmol/L (136-145)
[2018-01-08] MEDS: Piperacillin/Tazobactam 2.25 GM in Sodium Chloride 0.9% 100 ML IVPB SCH ×3 (05:58→22:26)
[2018-01-08] MEDS: Levothyroxine Sodium 100 MCG TAB PO SCH (05:58)
[2018-01-08 06:49] LABS: Band 5 % (5-11); Eosinophils 5 % (0-10); Hemoglobin 7.5 g/dL (14.0-18.0); Lymphocytes 34 % (21-51); MDiff Complete? YES; Mean Corpuscular HGB CONC 35.2 g/dL (32.0-36.0); Mean Corpuscular Hemoglobin 33.6 pg (27.0-31.0); Mean Corpuscular Volume 95.6 fl (80.0-94.0); Mean Platelet Volume 8.3 fL (7.4-10.4); Monocytes 2 % (0-10); Neutrophil 54 % (42-75); PLT Morphology Comment Appears Decreased; Platelet Count 73 thou/uL (130-400); RBC Distribution Width 12.8 % (11.5-14.5); Red Blood Cell (RBC) Count 2.23 mill/uL (4.70-6.10); White Blood Cell (WBC) Count 5.5 thou/uL (4.8-10.8)
[2018-01-08] MEDS: Apixaban 5 MG TAB PO SCH ×2 (10:11→22:19)
[2018-01-08] MEDS: Aspirin 81 mg Enteric Coated Tablet PO SCH (10:12)
[2018-01-08] MEDS: Docusate 100 MG CAP PO SCH ×2 (10:12→22:19)
[2018-01-08] MEDS: PARoxetine 20 MG TAB PO SCH (10:12)
[2018-01-08] MEDS: Furosemide 40 MG TAB PO SCH (10:12)
[2018-01-08] MEDS: Famotidine 20 MG TAB PO SCH ×2 (10:12→22:33)
[2018-01-08] MEDS: Atenolol 25 MG TAB PO SCH ×2 (10:14→22:33)
[2018-01-08] MEDS: clonazePAM 1 MG TAB PO SCH ×2 (10:15→22:19)
[2018-01-08] MEDS: Potassium Chloride 10 MEQ TAB PO SCH (10:15)
[2018-01-08] MEDS: Pregabalin 50 MG CAP PO SCH ×3 (10:16→22:17)
[2018-01-08] MEDS: ADDERALL 20 MG TAB PO SCH ×2 (12:18→13:09)
[2018-01-08] MEDS: HYDROcodone/Acetaminophen 5/325 mg Tablet PO PRN ×2 (12:20→18:38)
[2018-01-08] MEDS ORDERED: HYDROcodone/Acetaminophen 5/325 mg Tablet ONE (12:20)
[2018-01-08] MEDS ORDERED: PROPOFOL 200 MG/20 ML VIAL ONE (12:41)
[2018-01-08] MEDS ORDERED: PROPOFOL 20 ML ONE (13:02)
--- NOTE | 2018-01-08 15:07 | PDOC.CTH ---
<JazzelpidioGhada fontanez - Last Filed: 01/08/18 15:02> Cardiology Progress Note - Subjective EP progress note: Patient seen and evaluated. No new cardiac complaints overnight. Rested well over HS and feels well this AM. HR is better controlled and BP normal - Objective Vital Signs Temp Pulse Resp BP BP Pulse Ox 01/08/18 13:09 109/58 L 01/08/18 10:14 85 01/08/18 04:00 99.3 F 85 18 109/69 96 Admit Weight 263 lb 14.293 oz Weight 277 lb 3.2 oz 01/07/18 01/08/18 01/09/18 06:59 06:59 06:59 Intake Total 1700 3010 Output Total 1950 2580 Balance -250 430 - Physical Examination General/Neuro: alert & oriented x3, NAD Neck: no JVD present Lungs: unlabored respirations Heart: other: (AFL) Abdomen: NT/ND, soft - Telemetry Telemetry Rhythm: atrial flutter - Labs Result Diagrams: 01/08/18 04:25 01/08/18 04:25 Troponin/CKMB CK-MB (CK-2) 2.2 ng/mL (0-6.6) 12/30/17 17:36 Troponin I Less than 0.010 ng/mL (< 0.028) 12/30/17 23:21 - Assessment/Plan 1. Atrial fibrillation and flutter with RVR on amiodarone and digoxin. Now with better ventricular rate control. NPO for AMARILIS and CV today. Plan for CTI RFA in future once more medically stable. 2. Post operative fever, remains with low grade fever. 3. Oral anticoagulation, Eliquis started yesterday. Hgb dipped slightly overnight and plt count low. Will continue to monitor. <Dominic Trent - Last Filed: 01/09/18 14:47> Cardiology Progress Note - Objective Vital Signs Temp Pulse Resp BP BP Pulse Ox 01/09/18 12:39 99.4 F 68 16 112/57 L 99 01/09/18 08:56 158/56 H 01/09/18 08:55 65 01/09/18 08:49 98.4 F 65 17 109/59 L 97 01/09/18 04:00 98.9 F 64 17 111/64 96 Admit Weight 259 lb 11.272 oz Weight 278 lb 01/08/18 01/09/18 01/10/18 06:59 06:59 06:59 Intake Total 3010 480 Output Total 2580 1100 Balance 430 -620 - Labs Result Diagrams: 01/09/18 04:45 01/09/18 04:45 Troponin/CKMB CK-MB (CK-2) 2.2 ng/mL (0-6.6) 12/30/17 17:36 Troponin I Less than 0.010 ng/mL (< 0.028) 12/30/17 23:21 Attending Addendum - Attending Addendum Date/Time: 01/09/18 [id number] I personally evaluated the patient and discussed the management with Ms Courtney. I agree with the History, Examination, Assessment and Plan documented above with any addition or exceptions noted below.
[2018-01-08] MEDS ORDERED: Amiodarone 200 MG TAB PO SCH (16:08)
--- NOTE | 2018-01-08 16:13 | ECHO ---
62-year-old gentleman with typical atrial flutter. The patient was taken to the PACU, the patient se dated by anesthesiology. Transesophageal probe was placed distally in the esophagus and stomach. Echo cardiograms were obtained. The transesophageal probe was removed. FINDINGS 1. Normal left ventricular systolic function. 2. Mild left atrial enlargement. 3. Normal mitral and aortic valves. 4. Mild mitral regurgitation. 5. Mild tricuspid regurgitation. 6. No thrombus in the left atrium or left atrial appendage. 7. Atherosclerotic debris in the descending aorta. IMPRESSION: No formed thrombus in the left atrium or left atrial appendage.
[2018-01-08] MEDS ORDERED: Vancomycin HCl 1.25 GM in Sodium Chloride 0.9% 250 ML 250 ML IVPB SCH (17:00)
[2018-01-08] MEDS ORDERED: ADDERALL 20 MG TAB PO SCH ×2 (17:30)
--- NOTE | 2018-01-08 19:36 | PDOC.PN ---
- Subjective Encounter Start Date: 01/08/18 Encounter Start Time: 18:35 Subjective: f/u for febrile episode initiated on Zosyn and Vancomycin empirically. -: No recurrent fever documented and pt feels better. s/p electrical -: cardioversion successfully converting to SR from A-flutter. - Objective MAR Reviewed: Yes Vital Signs & Weight: Vital Signs (12 hours) Pulse BP 01/08/18 13:09 109/58 L 01/08/18 10:14 85 Weight Admit Weight 263 lb 14.293 oz Weight 277 lb 3.2 oz Most Recent Monitor Data Heart Rate from ECG 103 NIBP 118/71 NIBP BP-Mean 87 Respiration from ECG 23 SpO2 80 I&O: 01/07/18 01/08/18 01/09/18 06:59 06:59 06:59 Intake Total 1700 3010 Output Total 1950 2580 Balance -250 430 Result Diagrams: 01/08/18 04:25 01/08/18 04:25 Additional Labs: Accuchecks 01/08/18 01/08/18 01/08/18 16:49 11:14 05:41 POC Glucose 99 101 128 H 01/07/18 20:46 POC Glucose 155 H Laboratory Tests 01/07/18 05:04 Hgb 8.0 L Plt Count 116 L Microbiology 01/07/18 12:25 Urine clean catch Urine Culture - Preliminary NO GROWTH AT 12 HOURS 01/07/18 09:00 Venous blood - Left Arm Blood Culture - Preliminary Specimen has been received and culture in progress. No Growth to date. 01/07/18 08:55 Central Line - Left Subclavian Vein Blood Culture - Preliminary Specimen has been received and culture in progress. No Growth to date. Radiology Reviewed by me: Yes (AMARILIS - normal exam, no thrombus) EKG Reviewed by me: Yes (Tele - SR in 70's) Phys Exam - Physical Examination Constitutional: NAD HEENT: PERRLA, sclera anicteric, oral pharynx no lesions Neck: no nodes, no JVD, supple, full ROM Respiratory: no wheezing, no rales, no rhonchi, clear to auscultation bilateral S1, S2 Cardiovascular: RRR, no significant murmur, no rub, gallop Gastrointestinal: soft, non-tender, no distention, positive bowel sounds Musculoskeletal: no edema, pulses present Neurological: non-focal, normal sensation, moves all 4 limbs Psychiatric: A&O x 3 sternal incision intact, mild erythema proximally Skin: no rash, normal turgor, cap refill <2 seconds Dx/Plan (1) Febrile Code(s): R50.9 - FEVER, UNSPECIFIED Status: Acute Comment: concern for post- op fever, PCXR with LLL basilar infiltrate, blood/urine cx neg at 24h, Vancomycin and Zosyn empirically, continue empiric abx another 24h and monitor cx results (2) Atrial fibrillation with RVR Code(s): I48.91 - UNSPECIFIED ATRIAL FIBRILLATION Status: Acute Comment: Atenolol 25mg BID, Amiodarone 400mg BID, SR currently s/p electrical cardioversion (3) Hypokalemia Code(s): E87.6 - HYPOKALEMIA Status: Acute Comment: KCL 10meq daily, repeat K+ level in am (4) Anxiety Code(s): F41.9 - ANXIETY DISORDER, UNSPECIFIED Status: Acute Comment: Add Xanax 0.25mg po BID, Paxil 60mg daily (5) CKD (chronic kidney disease) stage 3, GFR 30-59 ml/min Code(s): N18.3 - CHRONIC KIDNEY DISEASE, STAGE 3 (MODERATE) Status: Chronic Comment: Avoid nephrotoxic meds and limit contrast exposure (6) Status post coronary artery bypass graft Code(s): Z95.1 - PRESENCE OF AORTOCORONARY BYPASS GRAFT Status: Acute Comment: POD #6, 2v CABG, Cardiac rehab - Plan plan discussed w/ family, continue antibiotics, PT/OT, social media analyst, respiratory therapy, out of bed/ambulate, DVT proph w/SCDs Stable overall -: Continue Amiodarone and Atenolol -: Eliquis 5mg BID -: Continue Zosyn and Vancomycin another 24h then de-escalate -: OOB/ambulate with cardiac rehab * AM lab: BMP, CBC
[2018-01-08] MEDS: Vancomycin HCl 1.25 GM in Sodium Chloride 0.9% 250 ML 250 ML IVPB SCH (19:37)
[2018-01-08] MEDS: Atorvastatin Calcium 40 MG TAB PO SCH (22:18)
[2018-01-08] MEDS: Amiodarone 200 MG TAB PO SCH (22:18)
[2018-01-08] MEDS: Amitriptyline HCl 25 MG TAB PO SCH (22:19)
[2018-01-09] MEDS: Piperacillin/Tazobactam 2.25 GM in Sodium Chloride 0.9% 100 ML IVPB SCH ×2 (02:56→05:46)
[2018-01-09] MEDS: Levothyroxine Sodium 100 MCG TAB PO SCH (05:46)
[2018-01-09 05:52] LABS: Vancomycin, Trough 22.5 ug/mL
[2018-01-09 05:55] LABS: Anion Gap 11 mmol/L (10-20); BUN (Urea Nitrogen) 17 mg/dL (8.4-25.7); Calc. Creatinine Clearance 76 mL/min (70-130); Calcium 8.5 mg/dL (7.8-10.44); Carbon Dioxide 28 mmol/L (23-31); Chloride 101 mmol/L (98-107); Estimated GFR-MDRD 39; Glucose 124 mg/dL (80-115); Potassium 3.8 mmol/L (3.5-5.1); Sodium 136 mmol/L (136-145)
[2018-01-09] MEDS ORDERED: Vancomycin HCl 1 GM in Premix Bag 1 BAG IVPB SCH ×2 (06:00→08:00)
[2018-01-09 06:21] LABS: Band 8 % (5-11); Eosinophils 5 % (0-10); Hemoglobin 7.9 g/dL (14.0-18.0); Lymphocytes 21 % (21-51); MDiff Complete? YES; Mean Corpuscular HGB CONC 34.4 g/dL (32.0-36.0); Mean Corpuscular Hemoglobin 32.2 pg (27.0-31.0); Mean Corpuscular Volume 93.5 fl (80.0-94.0); Mean Platelet Volume 7.4 fL (7.4-10.4); Monocytes 10 % (0-10); Neutrophil 53 % (42-75); PLT Morphology Comment Appears Adequate; Platelet Count 163 thou/uL (130-400); RBC Distribution Width 12.7 % (11.5-14.5); RBC Morphology Normal; Reactive Lymphocytes 3 % (0-10); Red Blood Cell (RBC) Count 2.45 mill/uL (4.70-6.10); White Blood Cell (WBC) Count 6.3 thou/uL (4.8-10.8)
[2018-01-09] MEDS: Apixaban 5 MG TAB PO SCH (08:53)
[2018-01-09] MEDS: Famotidine 20 MG TAB PO SCH (08:55)
[2018-01-09] MEDS: PARoxetine 20 MG TAB PO SCH (08:55)
[2018-01-09] MEDS: clonazePAM 1 MG TAB PO SCH (08:55)
[2018-01-09] MEDS: Atenolol 25 MG TAB PO SCH (08:55)
[2018-01-09] MEDS: Amiodarone 200 MG TAB PO SCH (08:56)
[2018-01-09] MEDS: Docusate 100 MG CAP PO SCH (08:56)
[2018-01-09] MEDS: Potassium Chloride 10 MEQ TAB PO SCH (08:56)
[2018-01-09] MEDS: ADDERALL 20 MG TAB PO SCH ×2 (08:58→12:43)
[2018-01-09] MEDS: Pregabalin 50 MG CAP PO SCH (08:59)
[2018-01-09] MEDS: Furosemide 40 MG TAB PO SCH (09:00)
[2018-01-09] MEDS: HYDROcodone/Acetaminophen 5/325 mg Tablet PO PRN (09:00)
[2018-01-09] MEDS: Aspirin 81 mg Enteric Coated Tablet PO SCH (09:04)
[2018-01-09 09:07] VITALS: BMI 31.3
--- NOTE | 2018-01-09 10:47 | PRG ---
DATE OF SERVICE: 01/09/2018 SERVICE: Pulmonary Medicine. INTERVAL HISTORY: The patient is doing fine from a respiratory standpoint. He is not participating with physical therapy in any form. Otherwise, it looks like the inflammatory cascade has improved. Denies any chest pain, nausea, vomiting, fevers or chills. PHYSICAL EXAMINATION: VITAL SIGNS: Afebrile, pulse 65, blood pressure 109/59, respirations 18, saturation 97% on room air. GENERAL: The patient is awake, alert, no apparent distress. LUNGS: Decent air entry. There is no prolonged expiratory phase. I do not appreciate wheezing, rhonchi or crackles. HEART: Normal rate, regular. ABDOMEN: Soft, nontender, nondistended. Bowel sounds are positive. MUSCULOSKELETAL: No cyanosis or clubbing. There is no pitting in the bilateral lower extremities. NEUROLOGIC: Grossly nonfocal. LABORATORY DATA: WBC 6.3, hemoglobin 7.9, platelets 163,000. INR 1.4. Creatinine 1.75 and roughly stable. Basic metabolic profile is otherwise unremarkable. Vancomycin trough is 22.5. Blood cultures x2 and urine culture are also unremarkable. ASSESSMENT: 1. Acute hypoxic respiratory failure, resolved. 2. Coronary artery disease, status post coronary artery bypass graft, postoperative day #7. 3. Atrial fibrillation/flutter, status post cardioversion and returned to normal sinus rhythm. 4. Sepsis without end organ damage. 5. Cellulitis, suspected. 6. Type 2 diabetes mellitus. DISCUSSION AND PLAN: Cultures remain negative to date. We will discontinue our IV antibiotics and put him on p.o. medications. This can be discontinued after a total duration of 14 days of antibiotics. We will encourage mobility, but once again, the patient is quite resistant to doing any type of exertion because of his chronic fatigue syndrome. He will need a repeat 2-view chest x- ray in 4 weeks to follow-up the left lower lobe atelectasis. At this point, he has no further inpatient requirements from a pulmonary or critical care perspective. As such, I will sign off. [facility]
[2018-01-09 12:43] VITALS: BP 112/57; TEMP 99.4
--- NOTE | 2018-01-09 15:36 | PRG ---
DATE OF SERVICE: 01/09/2018 REFERRING PHYSICIAN: Dr. Mccormack. SUBJECTIVE: Mr. Stafford seems to be doing better today. He has no further palpitations, dizziness, or loss of consciousness. Hence the AMARILIS-guided cardioversion yesterday. OBJECTIVE DATA: VITAL SIGNS: Blood pressure is 112/57, heart rate 60, respirations 16, temperature 99.4 degrees Fahr enheit. GENERAL: Alert and oriented man, in no apparent distress. NECK: Supple. Jugular veins not distended. CHEST: Coarse without crackles. CARDIOVASCULAR: Heart sounds are regular to rate and rhythm. No murmur, rub or gallop. ABDOMEN: Benign. Bowel sounds positive. EXTREMITIES: No edema, clubbing or cyanosis. DATABASE: The EKG reveals sinus rhythm. LABORATORY DATA: White count 6.3, hemoglobin 7.9, platelet count is 163. Sodium 136, potassium 3.8, BUN is 17, creatinine was 1.75. ASSESSMENT AND PLAN: Mr. Stafford is a pleasant 62-year-old man with prior history of coronary artery di sease. He has coronary artery bypass grafting surgery. His postoperative care was complicated with atrial arrhythmias, for which he underwent amiodarone loading, but eventually his rhythm organized in to a typical sustained atrial flutter with rapid rates. He underwent AMARILIS-guided cardioversion yester day with successful protestant of sinus rhythm and no recurrence of atrial fibrillation or atrial fl utter noted since. Our plan is at this point: 1. Continue amiodarone taper. 2. Consider oral anticoagulation if reasonable from surgical standpoint. 3. Follow up in the office. 4. Consider weaning off amiodarone within 3 months and consider ablation if recurrent atrial flutter is seen.
[2018-01-09] MEDS ORDERED: Cefdinir 300 MG CAP PO SCH (21:00)
[2018-01-09] MEDS ORDERED: Doxycycline 100 MG CAP PO SCH (21:00)
--- NOTE | 2018-01-10 00:52 | DIS ---
DATE OF ADMISSION: 01/01/2018 DATE OF DISCHARGE: 01/09/2018 DISCHARGE DIAGNOSES: 1. Coronary artery disease of the left anterior descending and diagonal bifurcation. 2. Status post coronary artery bypass grafting x2 with left internal mammary artery to the LAD and r everse saphenous vein graft to first diagonal. 4. Atrial fibrillation with rapid ventricular response postoperatively, status post electrical cardi oversion with sinus mechanism. 5. Chronic kidney disease, stage 3. 6. Hypokalemia, resolved. 7. Anxiety disorder, severe. 8. Febrile episode postoperatively, resolved. CONSULTATIONS: Dr. Mccormack with Cardiology Service, Dr. Rojas with Thoracic Surgery Service, Dr. Elizabeth and Dr. Marie with Pulmonology Service, Dr. Trent with Electrophysiology Service. PERTINENT LABORATORY AND X-RAY FINDINGS: Creatinine ranged between 1.46-2.13. Estimated GFR ranged between 31 to 49. Total cholesterol 239, triglycerides 185, HDL 28, LDL 174, TSH 1.63. Blood cultur es x2 dated 01/07/2018 showed no growth at 48 hours. Urine culture dated 01/07/2018 showed no growth at 36 hours. Portable chest x-ray dated 12/30/2017 showed no acute cardiopulmonary process. Cardio lite stress test dated 12/30/2017 showed reversible ischemia in the anterior and anterolateral dia with calculated ejection fraction of 62%. Left heart catheterization dated 01/01/2018 showed 1-vesse l coronary artery disease involving the LAD and diagonal bifurcation. 2D transthoracic echocardiogra m dated 01/01/2018 showed ejection fraction of 50%-55%. Mild mitral and tricuspid valve regurgitatio n. Transesophageal echocardiogram dated 01/08/2018 showed normal systolic function. No thrombus in the left atrium or left atrial appendage. HOSPITAL COURSE: The patient was admitted to the telemetry unit after initially presenting with ches t pain and concern for unstable angina. Serial troponins were negative x3 and the patient underwent Cardiolite stress testing showing evidence of reversible ischemia in the anterior and anterolateral s egment of the wall. The patient was evaluated by the Cardiology service undergoing left heart cathet erization showing single-vessel coronary disease involving the LAD and diagonal bifurcation. The pat ient was evaluated by Cardiothoracic Surgery Service and underwent a 2-vessel coronary artery bypass grafting on 01/02/2018 without complication. Postoperatively, the patient did develop atrial fibrill ation/flutter with rapid ventricular response requiring evaluation by the Electrophysiology Service. The patient was medically managed for tachycardia; however, underwent electrical cardioversion on with successful return to sinus mechanism. The patient was continued on amiodarone and vincent sitioned to 400 mg b.i.d. The patient also was initiated on Eliquis 5 mg b.i.d. Overall, the patien t did clinically stabilize with supportive management and followed general post-CABG protocol. The p atient was noted with a postoperative fever, placed on empiric antibiotic coverage with negative cult ures as stated previously. The patient's fever resolved with supportive management and vital signs h ave remained stable. I have examined the patient at the time of discharge and discussed pertinent fo llowup instructions and the patient verbalizes understanding and agreement. Overall, the patient is ready for discharge on 01/09/2018. DISCHARGE MEDICATIONS: 1. Amiodarone 400 mg p.o. b.i.d. 2. Elavil 25 mg p.o. at bedtime. 3. Eliquis 5 mg p.o. b.i.d. 4. Enteric-coated aspirin 81 mg p.o. daily. 5. Atenolol 25 mg p.o. b.i.d. 6. Lipitor 80 mg p.o. at bedtime. 7. Omnicef 300 mg p.o. b.i.d. x5 days. 8. Clonazepam 1 mg p.o. q.a.m. and 3 mg p.o. at bedtime. 9. Adderall 20 mg, 1-1/2 tabs q.a.m. and at noon. 10. Doxycycline 100 mg p.o. b.i.d. x5 days. 11. Enalapril 2.5 mg p.o. b.i.d. 12. [place] 5/325 mg, 1-2 tabs p.o. q.4 hours p.r.n. pain, #60 given, no refills. 13. Levothyroxine 100 mcg p.o. daily. 14. [place]-3 fatty acids 2 capsules p.o. b.i.d. 15. Paroxetine 60 mg p.o. daily. 16. Lyrica 200 mg p.o. t.i.d. 17. Promethazine 25 mg p.o. q.4-6 hours p.r.n. FOLLOWUP: The patient will follow up with her primary care provider, Dr. Valentine Rojas, within 7 d ays of discharge. The patient will follow up with Dr. Rojas with Thoracic Surgery Service 2-3 weeks after discharge. The patient will follow up with Dr. Daren Mccormack with Cardiology Service. The patient will follow up with Dr. Collins with Nephrology Service. CONDITION ON DISCHARGE: Stable. ACTIVITY: Ad curtis. SPECIAL INSTRUCTIONS: The patient will be set up with cardiac rehabilitation services after discharg e. DIET: Heart healthy and ADA. CODE STATUS: Full. DISPOSITION: Home, 01/09/2018. Total time for preparing and coordinating discharge is 37 minutes.
== END 2018-01-09 15:56 | disposition home or self-care (01) | DRG 233 ==
LOC: ERS 17:05 → 2SW 18:50 → OBSVTOIN 01-01 11:21 → 2NO 01-01 14:15 → CCU 01-02 06:59 → 2NO 01-05 10:03
PROVIDERS: ADMIT Internal Medicine; ATTEND Internal Medicine
PROC: 4A023N7 Measurement of Cardiac Sampling and Pressure, Left Heart, Percutaneous Approach (ICD-10-PCS; 2018-01-01)
PROC: B2151ZZ Fluoroscopy of Left Heart using Low Osmolar Contrast (ICD-10-PCS; 2018-01-01)
PROC: B2111ZZ Fluoroscopy of Multiple Coronary Arteries using Low Osmolar Contrast (ICD-10-PCS; 2018-01-01)
PROC: 0211099 Bypass Coronary Artery, Two Arteries from Left Internal Mammary with Autologous Venous Tissue, Open Approach (ICD-10-PCS; principal; 2018-01-02)
PROC: 06BQ0ZZ Excision of Left Saphenous Vein, Open Approach (ICD-10-PCS; 2018-01-02)
PROC: 5A1221Z Performance of Cardiac Output, Continuous (ICD-10-PCS; 2018-01-02)
PROC: 02HV33Z Insertion of Infusion Device into Superior Vena Cava, Percutaneous Approach (ICD-10-PCS; 2018-01-02)
PROC: B518ZZA Fluoroscopy of Superior Vena Cava, Guidance (ICD-10-PCS; 2018-01-02)
PROC: 5A2204Z Restoration of Cardiac Rhythm, Single (ICD-10-PCS; 2018-01-08)
DX: I25.110 Atherosclerotic heart disease of native coronary artery with unstable angina pectoris (principal); J96.01 Acute respiratory failure with hypoxia; A41.9 Sepsis, unspecified organism; I97.89 Other postprocedural complications and disorders of the circulatory system, not elsewhere classified; N17.9 Acute kidney failure, unspecified; L03.90 Cellulitis, unspecified; J91.8 Pleural effusion in other conditions classified elsewhere; I48.4 Atypical atrial flutter; J98.11 Atelectasis; I12.9 Hypertensive chronic kidney disease with stage 1 through stage 4 chronic kidney disease, or unspecified chronic kidney disease; N18.3 Chronic kidney disease, stage 3 (moderate); E87.6 Hypokalemia; F41.9 Anxiety disorder, unspecified; R50.9 Fever, unspecified; R53.82 Chronic fatigue, unspecified; M79.7 Fibromyalgia; E11.22 Type 2 diabetes mellitus with diabetic chronic kidney disease; D69.6 Thrombocytopenia, unspecified; E86.9 Volume depletion, unspecified; B96.89 Other specified bacterial agents as the cause of diseases classified elsewhere; E66.9 Obesity, unspecified; I08.1 Rheumatic disorders of both mitral and tricuspid valves; F10.21 Alcohol dependence, in remission; Z68.31 Body mass index [BMI] 31.0-31.9, adult; E78.5 Hyperlipidemia, unspecified; Z79.4 Long term (current) use of insulin; Z79.899 Other long term (current) drug therapy; Z87.891 Personal history of nicotine dependence; Y83.8 Other surgical procedures as the cause of abnormal reaction of the patient, or of later complication, without mention of misadventure at the time of the procedure; Y71.8 Miscellaneous cardiovascular devices associated with adverse incidents, not elsewhere classified; Y92.230 Patient room in hospital as the place of occurrence of the external cause
CPT/HCPCS: 36415; 36416; 71045; 78452; 80048; 80053; 80061; 80076; 80202; 82553; 82805; 83735; 84100; 84132; 84443; 84484; 85025; 85347; 85610; 85730; 86850; 86900; 86901; 87040; 87086; 92960; 93005; 93010; 93017; 93306; 93312; 93454; 93798; 94002; 99152; A4216; A9500; C1769; G8978-GP-CM; G8979-GP-CK; G8987-GO-CJ; G8988-GO-CI; J0282; J1160; J1642; J1644; J1815; J2001; J2150; J2250; J2440; J2543; J2704; J2720; J2785; J3010; J3370; J3475; J7050; J7070; J7626; P9045; Q9968; S0028

== ENCOUNTER 2018-01-24 20:32 | Inpatient (IN) | payer MEDICARE ==
[2018-01-24] MEDS ORDERED: Ondansetron ODT 8 MG TAB ONE (21:06)
--- NOTE | 2018-01-24 21:28 | RAD ---
CHEST ONE VIEW: 01/24/18 HISTORY: Hypotension. COMPARISON: 01/04/18, 01/07/18. FINDINGS: There is stable sternotomy wires. Normal cardiac silhouette. Chronic changers in the lung lung parenc hyma. No consolidation or masses. No pneumothorax or osseous abnormalities. IMPRESSION: No acute cardiopulmonary process. POS: [facility]
[2018-01-24] MEDS ORDERED: Metoclopramide HCl 10 MG/2 ML VIAL ONE (22:25)
[2018-01-24] MEDS ORDERED: Ketorolac Tromethamine 30 MG/ML VIAL ONE (22:25)
[2018-01-24] MEDS ORDERED: DOPamine 400 MG/D5W 250 ML 250 ML IVPB SCH (23:00)
[2018-01-25 02:09] LABS: Troponin I 0.012 ng/mL (< 0.028)
[2018-01-25] MEDS ORDERED: DOPamine 400 MG/D5W 250 ML 250 ML ONE (03:13)
[2018-01-25] MEDS ORDERED: Acetaminophen 325 MG TAB ONE ×3 (03:50→05:59)
[2018-01-25 04:58] LABS: #Eosinphils 0.2 thou/uL (0.0-0.7); #Monocytes 1.1 thou/uL (0.11-0.59); #Neutrophils 5.2 thou/uL (1.40-6.50); %Basophils 0.6 % (0.0-1.0); %Eosinophils 2.9 % (0.0-10.0); %Lymphocytes 13.5 % (21.0-51.0); Hemoglobin 9.5 g/dL (14.0-18.0); Mean Corpuscular HGB CONC 33.6 g/dL (32.0-36.0); Mean Corpuscular Hemoglobin 30.6 pg (27.0-31.0); Mean Corpuscular Volume 90.9 fL (78.0-98.0); Mean Platelet Volume 8.3 fL (7.4-10.4); Platelet Count 122 thou/uL (130-400); RBC Distribution Width 12.6 % (11.5-14.5); Red Blood Cell (RBC) Count 3.11 mill/uL (4.70-6.10); White Blood Cell (WBC) Count 7.5 thou/uL (4.8-10.8)
[2018-01-25 05:06] LABS: Anion Gap 13 mmol/L (10-20); BUN (Urea Nitrogen) 20 mg/dL (8.4-25.7); Calc. Creatinine Clearance 0 mL/min (70-130); Calcium 8.3 mg/dL (7.8-10.44); Carbon Dioxide 21 mmol/L (23-31); Chloride 104 mmol/L (98-107); Estimated GFR-MDRD 26; Glucose 117 mg/dL (80-115); Potassium 3.8 mmol/L (3.5-5.1); Sodium 134 mmol/L (136-145)
[2018-01-25 05:13] LABS: Troponin I Less than 0.010 ng/mL (< 0.028)
[2018-01-25] MEDS ORDERED: Ondansetron ODT 4 MG TAB ONE (05:59)
[2018-01-25] MEDS ORDERED: Norepinephrine 8 MG/0.9% NS 250 ML IVPB SCH (06:45)
[2018-01-25] MEDS: Sodium Chloride 0.9% 1,000 ML IV SCH ×2 (07:19→15:23)
[2018-01-25 08:03] VITALS: BMI 30.2
--- NOTE | 2018-01-25 09:04 | HP ---
CHIEF COMPLAINT: Right ankle pain. HISTORY OF PRESENT ILLNESS: Patient is a very pleasant 62-year-old male, who had CABG and was discha rged on 01/09/2018. Patient is status post grafting x2 with left internal mammary artery to the LAD and reverse saphenous vein graft to the first diagonal. Patient stated that he went to the ER today since he sprained his right ankle. The patient stated that he was trying to get out of the bathroom where his right ankle gave out and he sprained his right ankle. The patient stated that he has been eating and drinking without any difficulties. The patient states he denies any cough, nausea, vomiti ng, abdominal pain, or diarrhea. Patient denies any fevers or chills either. The patient was found to be very hypotensive in the ER and received 3 liters of normal saline. The p atient continued to have MAPs below 65. At this point, he was started on a dopamine drip and was tra [facility]ferred to [facility] for further evaluation. The patient states that he normally takes Adderall; however, for the past few weeks, he has not been able to get a prescription of his Adderall . PAST MEDICAL HISTORY: 1. History of coronary artery disease, status post bypass. 2. Hypertension. 3. Chronic kidney disease. 4. Chronic fatigue syndrome. 5. Fibromyalgia. 6. Type 2 diabetes. PAST SURGICAL HISTORY: He has a history of bypass x2, bilateral herniography, history of back surger y, and a history of skull fracture. FAMILY HISTORY: Denies any history of heart disease or diabetes. SOCIAL HISTORY: He does not smoke, drink alcohol, or illicit drug use. ALLERGIES: He has got no known drug allergies. REVIEW OF SYSTEMS: All negative except for the ones mentioned above in the HPI. HOME MEDICATIONS: As following, this is based off of his discharge history: 1. Patient takes amiodarone 400 mg b.i.d. 2. Elavil 25 mg at bedtime. 3. Eliquis 5 mg b.i.d. 4. Aspirin 81 mg daily. 5. Atenolol 25 mg b.i.d. 6. Lipitor 80 mg daily. 7. Omnicef 300 mg p.o. b.i.d. for 5 days. 8. Clonazepam 1 mg q.a.m. and 3 mg at bedtime. 9. Adderall 20 mg 1.5 tab q.a.m. The patient is not taking this medication since he ran out of this . 10. Doxycycline 100 mg p.o. b.i.d. x5. 11. Enalapril 12.5 mg p.o. b.i.d. 12. [place] 5/325 1-2 tabs q.4 hours p.r.n. 13. Levothyroxine 100 mcg daily. 14. [place] 3 fatty acids. 15. Paroxetine 60 mg daily. 16. Lyrica 200 mg p.o. t.i.d. 17. Promethazine 25 mg p.o. q.4-6 hours p.r.n. PHYSICAL EXAMINATION: VITAL SIGNS: Blood pressure is currently 100/60 on the dopamine drip, heart rate of 52 100% on room air. He is afebrile at 98.6. GENERAL: He is awake, alert, oriented x3, does not appear in any distress. HEENT: Normocephalic, atraumatic. No lymphadenopathy noted. However, his mucous membranes appear t o be very dry. NECK: Supple, full range of motion, no JVD noted. RESPIRATORY: Clear to auscultation. No rhonchi or wheezes noted. CARDIOVASCULAR: S1 and S2 present, sinus brenda. Mild systolic murmur heard in the left sternal bord er. ABDOMEN: Obese. Bowel sounds are present x2. No pain upon palpation. EXTREMITIES: Mild lower extremity edema. He does have some chronic venous changes. His right ankle is a little bit more edematous than his left; however, the patient is able to do range of motion and no redness or erythema has been noted. NEUROLOGIC: No focal deficits noted. LABORATORY DATA: As following: WBC is 9.6, hemoglobin of 9.7, hematocrit of 28.1, platelets of 182. Chemistry: Sodium of 136, potassium of 3.8, BUN of 18, creatinine of 2.39, glucose of 78. Troponi n x2 are negative. BNP is 162; it was 165. TSH is 0.74. His coagulation, PT, PTT, and D-dimer are elevated. This is most likely secondary to his Eliquis. Patient had a chest x-ray done, which did n ot indicate any acute abnormalities. He also had a right ankle x-ray, which did not indicate any fra ctures. ASSESSMENT AND PLAN: The patient is a very pleasant 62-year-old male, who presents to the hospital f or right ankle sprain and was admitted for hypotension. 1. Hypotension, unknown etiology at this point. The patient has no leukocytosis. He has no complai nts in regard to diarrhea, nausea, vomiting, cough, fever, or any acute abnormalities. Patient's katiana rnal incision appears intact. No redness or erythema is noted either. At this time, I will not star t any antibiotics. He has received a total of 4 liters in the ER and currently is also on normal vega ine at 100 mL an hour. Looking back through his blood work, he has had low hemoglobin. We will chec k another H and H since his last H and H was 4 p.m. yesterday and patient appears to be very clinical ly dehydrated, maybe patient may require some blood transfusions. The patient is currently on Eliqui s. His PT/PTT is mildly elevated and therefore so as his D-dimer. We will also check a urine to monik e sure patient does not have a urinary tract infection. Patient is currently on dopamine, which I do not think is a standard of treatment for this patient; however, in order for me to start patient on Levophed, I would require to have a central line placed. The patient is on a very low dose of dopami ne, which is currently at 8 an hour. Again, it is not the standard of drug. However, the patient wi ll require a central line and I will wait and see what his CBC indicates. If patient is anemic, I wi ll transfuse him blood, and hopefully that will improve patient's pressures. However, currently, I d o not think this is an infectious etiology. 2. Status post bypass. We will continue the aspirin. We will continue some of his home medications . However, will hold the beta aly since patient is hypotensive. 3. History of anxiety and depression. We will continue patient's home medications. The patient has not been getting his Adderall. The patient is very upset about that, because he is unable to get a prescription from his primary. 4. We will also consult his Cardiovascular surgeon just as a courtesy. 5. Acute kidney injury. The patient's creatinine is mildly elevated than his baseline. We will con tinue to monitor. Hopefully, this will improve after hydration.
[2018-01-25] MEDS: Levothyroxine Sodium 100 MCG TAB PO SCH (09:18)
[2018-01-25] MEDS: clonazePAM 1 MG TAB PO SCH (09:22)
[2018-01-25] MEDS: Aspirin 81 mg Enteric Coated Tablet PO SCH (09:22)
[2018-01-25] MEDS: PARoxetine 20 MG TAB PO SCH (09:22)
[2018-01-25] MEDS: Apixaban 5 MG TAB PO SCH ×2 (09:22→21:55)
[2018-01-25 10:24] LABS: Bilirubin Negative (Negative); Blood, Urine Negative (Negative); Clarity CLEAR (Clear); Glucose, Urine (Dipstick) Negative (Negative); Leukocyte Negative (Negative); Nitrite Negative (Negative); Protein, Urine (Dipstick) Negative (Neg-Trace); Specific Gravity, Urine 1.008 (1.002-1.036); Urobilinogen 0.2 mg/dL (0.2-1.0)
[2018-01-25 10:47] LABS: Bacteria/HPF None Seen HPF (None Seen); Hyaline Casts/LPF NONE SEEN LPF (0-3 Hyaline); RBC/HPF 0-3 HPF (0-3); Squamous Epithelial 0-3 HPF (0-3); WBC/HPF 0-3 HPF (0-3)
[2018-01-25] MEDS: Ondansetron HCl/PF 4 MG/2 ML Vial IVP PRN ×3 (11:50→21:56)
--- NOTE | 2018-01-25 15:21 | PDOC.EVN ---
Event Note - Event Note Event Note: EVALUATED PATIENT. PRESENTED TO OUTSIDE ED WITH GENERALIZED WEAKNESS SINCE HIS ADDERALL RAN OUT AND HE COULD NOT GET ANY MORE AND WITH AN ANKLE SPRAIN. WAS NOTED TO BE HYPOTENSIVE. THUS FAR, NO SPECIFIC SOURCE OF THE HYPOTENSION HAS BEEN FOUND. HE HAS RECEIVED FLUIDS AND HE IS STILL ON 5 UG OF LEVOPHED. ATTEMPTING TO WEAN. HE HAS BEEN OFF OF THE ADDERALL FOR TWO WEEKS AND IT SEEMS UNLIKELY THAT HE WOULD HAVE HYPOTENSION TO THIS DEGREE THIS FAR ALONG RELATED TO THAT. HE LOOKS QUITE PALE ON EXAM. WILL RECHECK HIS H/H TO ENSURE HE DOES NOT HAVE AN OCCULT BLEED.
[2018-01-25] MEDS ORDERED: Promethazine HCl 25 MG/ML VIAL SLOW IVP PRN (15:40)
[2018-01-25 15:58] LABS: Hemoglobin 8.6 g/dL (14.0-18.0)
[2018-01-25] MEDS ORDERED: Pregabalin 50 MG CAP PO SCH (19:30)
--- NOTE | 2018-01-25 20:49 | CON ---
DATE OF CONSULTATION: 01/25/2018 HISTORY OF PRESENT ILLNESS: Randy Stafford is a 62-year-old gentleman, who was just recently di scharged from the hospital, presented with hypotension. He is now on Levophed in the ICU, systolic is 115, pulse 51, sats 100%, respirations 14. Lives alone . Apparently, it is unclear what transpired after his discharge. It appears he has had failure to t hrive. He seems until , but as of yesterday, he was not able to drink or eat. He is h aving some right ankle pain, but denies any chest pain, denies any shortness of breath. He was found to be hypotensive in [place] and has received several liters of fluid prior to arrival. PAST MEDICAL HISTORY: Coronary artery disease, status post bypass x2, atrial fibrillation, renal debra lure, anxiety, some element of encephalopathy. Fibromyalgia, chronic fatigue syndrome. PREVIOUS SURGERIES: Hernia, low back; skull fracture; and as noted the recent bypass. HABITS: Alcohol none. Tobacco none. HOME MEDICATIONS: Supposed to have included Tenormin 50 twice a day, Cardura 40 twice a day, Adderal l 20 mg 1.5 tablets once a day, hydrocodone p.r.n., Eliquis 5 twice a day, Lipitor 80, Synthroid 100, clonazepam 1 mg, Vasotec as needed. ALLERGIES: None. REVIEW OF SYSTEMS: Ten-point negative. PHYSICAL EXAMINATION: VITAL SIGNS: As noted, his blood pressure has improved 115/54, pulse 59, sats are 90% on room air, respirations 14. GENERAL: He is in no distress. CHEST: Decreased breath sounds, no wheezing. CARDIAC: Normal S1 and S2. No gallops. ABDOMEN: Soft. No masses. LABORATORY DATA: White count 10,000, H and H 9 and 28, platelet count 122. Creatinine is at baselin e, 2.47. At the time of discharge, it was like 1.8. BNP is normal. Chest x-ray is clear. IMPRESSION: 1. Hypertension, probably volume depleted. 2. Chronic fatigue syndrome. 3. Chronic renal failure. 4. Atrial fibrillation. 5. Recent bypass. Additional volume 250 of 5% albumin is given. Continue observation. I do not see any evidence of se psis, though no culture has been ordered. White count is normal. We will follow while in the ICU. This is a consultation note of 70 minutes of which 50% in direct patient care.
[2018-01-25] MEDS: Amitriptyline HCl 25 MG TAB PO SCH (21:25)
[2018-01-25] MEDS: Atorvastatin Calcium 40 MG TAB PO SCH (21:55)
[2018-01-25] MEDS: HYDROcodone/Acetaminophen 5/325 mg Tablet PO PRN (21:55)
[2018-01-25] MEDS ORDERED: clonazePAM 1 MG TAB PO SCH (23:15)
[2018-01-26] MEDS: Sodium Chloride 0.9% 1,000 ML IV SCH ×3 (03:35→22:26)
[2018-01-26 05:00] LABS: #Eosinphils 0.3 thou/uL (0.0-0.7); #Lymphocytes 1.3 thou/uL (1.20-3.40); #Monocytes 0.8 thou/uL (0.11-0.59); #Neutrophils 3.6 thou/uL (1.40-6.50); %Basophils 0.8 % (0.0-1.0); %Eosinophils 5.7 % (0.0-10.0); %Neutrophils 59.5 % (42.0-75.0); Hemoglobin 8.5 g/dL (14.0-18.0); Mean Corpuscular HGB CONC 33.7 g/dL (32.0-36.0); Mean Corpuscular Volume 91.9 fL (78.0-98.0); Mean Platelet Volume 8.3 fL (7.4-10.4); Platelet Count 126 thou/uL (130-400); RBC Distribution Width 12.9 % (11.5-14.5); Red Blood Cell (RBC) Count 2.73 mill/uL (4.70-6.10)
[2018-01-26 05:10] LABS: Anion Gap 8 mmol/L (10-20); BUN (Urea Nitrogen) 20 mg/dL (8.4-25.7); Calc. Creatinine Clearance 60 mL/min (70-130); Calcium 8.1 mg/dL (7.8-10.44); Carbon Dioxide 23 mmol/L (23-31); Chloride 113 mmol/L (98-107); Estimated GFR-MDRD 31; Glucose 97 mg/dL (80-115); Potassium 4.2 mmol/L (3.5-5.1); Sodium 140 mmol/L (136-145)
[2018-01-26] MEDS: Levothyroxine Sodium 100 MCG TAB PO SCH (05:45)
[2018-01-26] MEDS: PARoxetine 20 MG TAB PO SCH (09:37)
[2018-01-26] MEDS: Aspirin 81 mg Enteric Coated Tablet PO SCH (09:37)
[2018-01-26] MEDS: Apixaban 5 MG TAB PO SCH ×2 (09:37→22:07)
[2018-01-26] MEDS: clonazePAM 1 MG TAB PO SCH ×2 (09:39→22:08)
[2018-01-26] MEDS ORDERED: Dexamethasone 4 mg/ml Vial SLOW IVP SCH (09:45)
--- NOTE | 2018-01-26 09:57 | PDOC.PN ---
- Subjective Encounter Start Date: 01/26/18 Encounter Start Time: 09:55 Feels well. No complaints. Eating well, drinking well. - Objective MAR Reviewed: Yes Vital Signs & Weight: Vital Signs (12 hours) Temp Pulse Resp 01/26/18 08:00 98.6 F 60 17 01/26/18 07:00 98.6 F Most Recent Monitor Data Heart Rate from ECG 56 NIBP 87/52 NIBP BP-Mean 59 Respiration from ECG 19 SpO2 98 I&O: 01/25/18 01/26/18 01/27/18 06:59 06:59 06:59 Intake Total 4165 409.4 Output Total 3725 650 Balance 440 -240.6 Result Diagrams: 01/26/18 04:50 01/26/18 04:50 Additional Labs: Accuchecks 01/26/18 07:41 POC Glucose 113 H Phys Exam - Physical Examination Constitutional: NAD HEENT: oral pharynx no lesions Neck: no JVD, supple Respiratory: no wheezing, no rales, no rhonchi, clear to auscultation bilateral Cardiovascular: RRR, no significant murmur, no rub Gastrointestinal: soft, non-tender, no distention, positive bowel sounds Musculoskeletal: no edema Neurological: non-focal Psychiatric: normal affect, A&O x 3 Skin: normal turgor Dx/Plan (1) Acute hypotension Code(s): I95.9 - HYPOTENSION, UNSPECIFIED Status: Acute Plan: Unclear etiology. Differential includes infection (but no fever, leukocytosis or signs of infection), Adderall w/d (two weeks without, should be resolved by this time, but it can occur 2-3 weeks after cessation - Pharmacy does not carry adderall), adrenal insufficiency (recent surgery - lytes are normal), volume depletion (has had adequat fluids and he is voiding as much as we put in). Checking Procalcitonin, serum cortisol and giving a dose of Dexamethasone. He has had volume and albumin. May consider florinef. Comment: Required pressors. Off now. (2) Acute on chronic kidney failure Code(s): N17.9 - ACUTE KIDNEY FAILURE, UNSPECIFIED; N18.9 - CHRONIC KIDNEY DISEASE, UNSPECIFIED Status: Acute Plan: CKD III. Creatinine slightly above baseline. Voiding very well. (3) Right ankle sprain Code(s): S93.401A - SPRAIN OF UNSPECIFIED LIGAMENT OF RIGHT ANKLE, INIT ENCNTR Status: Acute Qualifiers: Comment: Stable. Continue pain control. (4) CFS (chronic fatigue syndrome) Code(s): R53.82 - CHRONIC FATIGUE, UNSPECIFIED Status: Chronic Comment: Was on Adderall. Out for two weeks. Pharmacy does not carry this. (5) CKD (chronic kidney disease) stage 3, GFR 30-59 ml/min Code(s): N18.3 - CHRONIC KIDNEY DISEASE, STAGE 3 (MODERATE) Status: Chronic Comment: Avoid nephrotoxic meds and limit contrast exposure - Plan * .
--- NOTE | 2018-01-26 12:18 | PRG ---
DATE OF SERVICE: 01/26/2018 SUBJECTIVE: This morning, he is awake, alert, and responsive. He is in no distress. OBJECTIVE: VITAL SIGNS: Sats 100% on room air, pulse 57, blood pressure 102/57, respirations 18. GENERAL: He is complaining of some anxiety. CHEST: Decreased breath sounds, no wheezing. CARDIAC: Normal S1 and S2, no gallops. ABDOMEN: Soft, without any mass. LABORATORY DATA: White count 6000, H and H is 8 and 25, platelet count is 126. Creatinine is 2.4 an d BUN is 20. IMPRESSION: 1. Azotemia, improved. 2. Recent coronary artery bypass grafting. 3. Major anxiety. 4. Hypotension, probably related to volume depletion. PLAN: The patient can probably be transferred out of the ICU. His blood pressure is improved. His sats are better. Continue PT, eventually placement.
[2018-01-26] MEDS ORDERED: Albumin 25% 25 GM/100 ML BOT IVPB SCH (12:19)
[2018-01-26] MEDS: Hydrocortisone Sod Succ/PF 100 mg/2 ml Vial IVP SCH ×2 (17:04→23:53)
[2018-01-26] MEDS: HYDROcodone/Acetaminophen 5/325 mg Tablet PO PRN ×2 (17:07→22:20)
[2018-01-26] MEDS: Amitriptyline HCl 25 MG TAB PO SCH (22:07)
[2018-01-26] MEDS: Atorvastatin Calcium 40 MG TAB PO SCH (22:07)
[2018-01-27] MEDS: Hydrocortisone Sod Succ/PF 100 mg/2 ml Vial IVP SCH ×3 (05:44→17:06)
[2018-01-27] MEDS: Levothyroxine Sodium 100 MCG TAB PO SCH (05:45)
[2018-01-27] MEDS: HYDROcodone/Acetaminophen 5/325 mg Tablet PO PRN ×3 (06:05→21:00)
[2018-01-27] MEDS: Sodium Chloride 0.9% 1,000 ML IV SCH ×2 (08:20→08:38)
[2018-01-27] MEDS: clonazePAM 1 MG TAB PO SCH ×2 (08:38→20:59)
[2018-01-27] MEDS: PARoxetine 20 MG TAB PO SCH (08:39)
[2018-01-27] MEDS: Apixaban 5 MG TAB PO SCH ×2 (08:39→20:59)
[2018-01-27] MEDS: Aspirin 81 mg Enteric Coated Tablet PO SCH (08:39)
--- NOTE | 2018-01-27 12:23 | PRG ---
DATE OF SERVICE: 01/27/2018 SERVICE: Pulmonary Medicine. INTERVAL HISTORY: The patient is doing fine from a respiratory standpoint. He is breathing comforta earl. There has been no interval change to his condition. Ultimately, he has been weaned off of Levo phed overnight. PHYSICAL EXAMINATION: VITAL SIGNS: Afebrile, pulse 54, blood pressure 126/64, respirations 12, saturation 98% on room air. GENERAL: Patient is awake and alert, in no apparent distress. LUNGS: Decent air entry bilaterally. I do not appreciate prolonged expiratory phase. 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 HEART: Normal rate and regular. ABDOMEN: Soft, nontender, nondistended. Bowel sounds are positive. MUSCULOSKELETAL: No cyanosis or clubbing. There is no pitting in the bilateral lower extremities. NEUROLOGIC: Grossly nonfocal. LABORATORY DATA: Cortisol level is 3.3, procalcitonin 0.49. Urinalysis is essentially unremarkable. ASSESSMENT: 1. Hypotension. 2. Low cortisol level. 3. Recent coronary bypass graft surgery. 4. Chronic systolic heart failure. DISCUSSION AND PLAN: The patient can be transitioned out of the ICU. He has been weaned off of his Levophed drip. It appears that he has been initiated on stress doses of steroids. If the patient go es home with mineral and glucocorticoids, it should be interrupted in the outpatient setting and he s hould undergo a formal cosyntropin stimulation study. At this point, he has no further requirements for ICU stay. As such, he will be transitioned to the telemetry unit. Pulmonary or Critical Care wi ll continue to follow along if he remains in the ICU, but when he lands on the floor, we will sign of f. Please call with additional questions or concerns.
--- NOTE | 2018-01-27 15:10 | PQF ---
CLINICAL DOCUMENTATION IMPROVEMENT CLARIFICATION FORM: ICD-10 Updated PLEASE DO AN ADDENDUM TO THE PROGRESS NOTE WITH ANY DOCUMENTATION UPDATES OR ADDITIONS AND CARRY THROUGH TO DC SUMMARY. THANK YOU. DATE: 01/27/18 ATTN : DR. HIRSCH Please exercise your independent, professional judgment in responding to the clarification form. Clinical indicators are provided on the bottom of this form for your review Please check appropriate box(s): [ ] Hypovolemic Shock [ ] Cardiogenic Shock [ ] Septic Shock [ ] Hemorrhagic Shock due to trauma: [ ] Hemorrhagic Shock due to surgery: [ ] Anaphylactic Shock (please specify etiology) [ ] Neurogenic Shock [ ] Cwhya-Lbro-gqlvmus Shock (please specify etiology) [x ] Shock Unspecified [ ] Other diagnosis [ x] Unable to determine In addition, please specify: Present on Admission (POA): [ ] Yes [ ] No [ ] Unable to determine For continuity of documentation, please document condition throughout progress notes and discharge summary. Thank You. CLINICAL INDICATORS - SIGNS / SYMPTOMS / LABS ER NOTE: "DR. ADAMS CALLED BACK TO CHECK ON PATIENT'S STATUS WHILE ON 5MCG/KG/ MIN AND INFORMED HER THAT PATIENT'S MAP WAS <65 WHILE OF THE DOSE, AND THAT DOSE HAD TO BE TITRATED TO 8MCG/KG/MIN." RISKS: RECENT CABG VOLUME DEPLETION (PER PROGRESS NOTE 01/26) TREATMENT: DOPAMINE (STARTED IN [place] - 01/25) IV FLUIDS (ER- 01/25) LEVOPHED ALBUMIN CRITICAL CARE MONITORING SAP Assistant Quality Manager [employer] Winform Viewer(This form is maintained as a part of the permanent medical record) 2014 [employer]. All Rights Reserved JULIETA [email or web address] Office: [phone] [facility]
[2018-01-27] MEDS: Ondansetron HCl/PF 4 MG/2 ML Vial IVP PRN (15:45)
[2018-01-27] MEDS: Amitriptyline HCl 25 MG TAB PO SCH (20:59)
[2018-01-27] MEDS: Atorvastatin Calcium 40 MG TAB PO SCH (20:59)
[2018-01-28] MEDS: Hydrocortisone Sod Succ/PF 100 mg/2 ml Vial IVP SCH ×5 (00:18→23:52)
[2018-01-28] MEDS: Ondansetron HCl/PF 4 MG/2 ML Vial IVP PRN (00:55)
[2018-01-28] MEDS: HYDROcodone/Acetaminophen 5/325 mg Tablet PO PRN (03:59)
[2018-01-28] MEDS: Levothyroxine Sodium 100 MCG TAB PO SCH (05:39)
[2018-01-28] MEDS: clonazePAM 1 MG TAB PO SCH ×2 (08:15→21:05)
[2018-01-28] MEDS: PARoxetine 20 MG TAB PO SCH (08:15)
[2018-01-28] MEDS: Aspirin 81 mg Enteric Coated Tablet PO SCH (09:55)
[2018-01-28] MEDS: Apixaban 5 MG TAB PO SCH ×2 (09:55→21:05)
--- NOTE | 2018-01-28 10:36 | PDOC.PN ---
- Subjective Encounter Start Date: 01/27/18 Encounter Start Time: 11:00 PAtient is seen today in ICU, he is c/o feeling tired and weak, and says he is not on Adderal and cardioogy has said it was Ok for him to be on Aderral, But the nurse was clear in telling me Cardiology never approved for him to be on Adderal due to his recent cardiac Bypass. - Objective Vital Signs & Weight: Vital Signs (12 hours) Temp Pulse Resp BP BP Pulse Ox 01/28/18 08:16 99 F 63 18 173/81 H 95 01/28/18 04:37 98.7 F 55 L 14 131/63 96 01/28/18 00:59 20 93 L 01/27/18 23:56 98.4 F 58 L 19 98/59 L 98 Most Recent Monitor Data Heart Rate from ECG 56 NIBP 97/45 NIBP BP-Mean 70 Respiration from ECG 12 SpO2 95 I&O: 01/27/18 01/28/18 01/29/18 06:59 06:59 06:59 Intake Total 4554.4 3013 Output Total 1975 1450 Balance 2579.4 1563 Result Diagrams: 01/26/18 04:50 01/26/18 04:50 Additional Labs: Accuchecks 01/27/18 01/27/18 21:04 16:35 POC Glucose 153 H 136 H Radiology Reviewed by me: Yes Phys Exam - Physical Examination HEENT: PERRLA, moist MMs Neck: no nodes, no JVD Respiratory: no wheezing, no rales Cardiovascular: RRR, no significant murmur Gastrointestinal: soft, non-tender Musculoskeletal: no edema, pulses present Neurological: non-focal, normal sensation Lymphatic: no nodes Psychiatric: normal affect, A&O x 3 Dx/Plan (1) Acute hypotension Code(s): I95.9 - HYPOTENSION, UNSPECIFIED Status: Acute Comment: Required pressors. Off now.Continue on IV fluids now. (2) Atrial fibrillation with RVR Code(s): I48.91 - UNSPECIFIED ATRIAL FIBRILLATION Status: Acute Comment: Stbale Now on BB. (3) Hypokalemia Code(s): E87.6 - HYPOKALEMIA Status: Acute Comment: Repleted with Potassium protocol (4) Hypothyroidism Code(s): E03.9 - HYPOTHYROIDISM, UNSPECIFIED Status: Acute Qualifiers: Hypothyroidism type: unspecified Qualified Code(s): E03.9 - Hypothyroidism , unspecified Comment: stable, continue synthroid (5) Status post coronary artery bypass graft Code(s): Z95.1 - PRESENCE OF AORTOCORONARY BYPASS GRAFT Status: Acute Comment: 2v CABG, CT surgery consulted for pts Readmisison with hypotension. Follow recommedations., - Plan cont current plan of care, PT/OT, social worker, respiratory therapy, incentive spirometry, out of bed/ambulate, DVT proph w/lovenox * . Review of Systems - Review of Systems Eyes: negative: Pain, Vision Change, Conjunctivae Inflammation, Eyelid Inflammation, Redness, Other ENT: negative: Ear Pain, Ear Discharge, Nose Pain, Nose Discharge, Nose Congestion, Mouth Pain, Mouth Swelling, Throat Pain, Throat Swelling, Other Respiratory: negative: Cough, Dry, Shortness of Breath, Hemoptysis, SOB with Excertion, Pleuritic Pain, Sputum, Wheezing Cardiovascular: negative: chest pain, palpitations, orthopnea, paroxysmal nocturnal dyspnea, edema, light headedness, other Gastrointestinal: negative: Nausea, Vomiting, Abdominal Pain, Diarrhea, Constipation, Melena, Hematochezia, Other Genitourinary: negative: Dysuria, Frequency, Incontinence, Hematuria, Retention , Other Musculoskeletal: negative: Neck Pain, Shoulder Pain, Arm Pain, Back Pain, Hand Pain, Leg Pain, Foot Pain, Other - Medications/Allergies Allergies/Adverse Reactions: Allergies Allergy/AdvReac Type Severity Reaction Status Date / Time No Known Drug Allergies Allergy Verified 12/30/17 21:12 Medications: Current Medications Hydrocodone Bitart/Acetaminophen ([place] 5/325) 1 tab PO Q6H PRN PRN Reason: Moderate Pain (4-6) Last Admin: 01/28/18 03:59 Dose: 1 tab Hydrocodone Bitart/Acetaminophen ([place] 5/325) 2 tab PO Q6H PRN PRN Reason: Severe Pain (7-10) Last Admin: 01/26/18 22:20 Dose: 2 tab Amitriptyline HCl (Elavil) 25 mg PO HS [facility] Last Admin: 01/27/18 20:59 Dose: 25 mg Apixaban (Eliquis) 5 mg PO BID [facility] Last Admin: 01/28/18 09:55 Dose: 5 mg Aspirin (Ecotrin) 81 mg PO DAILY [facility] Last Admin: 01/28/18 09:55 Dose: 81 mg Atorvastatin Calcium (Lipitor) 80 mg PO HS [facility] Last Admin: 01/27/18 20:59 Dose: 80 mg Clonazepam (Klonopin) 1 mg PO QAM [facility] Last Admin: 01/28/18 08:15 Dose: 1 mg Clonazepam (Klonopin) 3 mg PO HS [facility] Last Admin: 01/27/18 20:59 Dose: 3 mg Hydrocortisone Sodium Succinate (Solu-Cortef) 50 mg IVP Q6HR [facility] Stop: 02/02/18 18:01 Last Admin: 01/28/18 05:39 Dose: 50 mg Levothyroxine Sodium (Synthroid) 100 mcg PO 0600 [facility] Last Admin: 01/28/18 05:39 Dose: 100 mcg Ondansetron HCl (Zofran) 4 mg IVP Q6H PRN PRN Reason: Nausea/Vomiting Last Admin: 01/28/18 00:55 Dose: 4 mg Paroxetine HCl (Paxil) 60 mg PO DAILY [facility] Last Admin: 01/28/18 08:15 Dose: 60 mg Sodium Chloride (Flush - Normal Saline) 10 ml IVF Q12HR [facility] Last Admin: 01/28/18 09:55 Dose: 10 ml Sodium Chloride (Flush - Normal Saline) 10 ml IVF PRN PRN PRN Reason: Saline Flush Last Admin: 01/28/18 00:55 Dose: 10 ml
--- NOTE | 2018-01-28 14:03 | PDOC.PN ---
- Subjective Encounter Start Date: 01/28/18 Encounter Start Time: 10:00 PAtient is seen today, back on oxygen today since he desaturated last night, intially admitted with Hypotension. pt is addict of Adderal, he is says Dr. Simmons asked to continue Adderal but Dr. Mccormack asked to stop due to his recent bypass, discussed with nurse to confirm with Dr. Weathers. - Objective MAR Reviewed: Yes Vital Signs & Weight: Vital Signs (12 hours) Temp Pulse Resp BP BP Pulse Ox 01/28/18 08:20 99 F 63 18 95 01/28/18 08:16 99 F 63 18 173/81 H 95 01/28/18 04:37 98.7 F 55 L 14 131/63 96 Most Recent Monitor Data Heart Rate from ECG 56 NIBP 97/45 NIBP BP-Mean 70 Respiration from ECG 12 SpO2 95 I&O: 01/27/18 01/28/18 01/29/18 06:59 06:59 06:59 Intake Total 4554.4 3013 Output Total 1975 1450 Balance 2579.4 1563 Result Diagrams: 01/26/18 04:50 01/26/18 04:50 Additional Labs: Accuchecks 01/28/18 01/27/18 01/27/18 10:37 21:04 16:35 POC Glucose 110 153 H 136 H Radiology Reviewed by me: Yes Phys Exam - Physical Examination HEENT: PERRLA, moist MMs Neck: no nodes, no JVD Respiratory: no wheezing, no rales Cardiovascular: RRR, no significant murmur Gastrointestinal: soft, non-tender Musculoskeletal: no edema, pulses present Neurological: non-focal, normal sensation Dx/Plan (1) Acute respiratory failure with hypoxia Code(s): J96.01 - ACUTE RESPIRATORY FAILURE WITH HYPOXIA Status: Acute Comment: Will try to Wean off, pt not trying to take deep breath, will do IS. (2) Acute hypotension Code(s): I95.9 - HYPOTENSION, UNSPECIFIED Status: Acute Comment: Required pressors. Off now.Continue on IV fluids now. stbale now. (3) Atrial fibrillation with RVR Code(s): I48.91 - UNSPECIFIED ATRIAL FIBRILLATION Status: Acute Comment: Stbale Now on BB. (4) Hypokalemia Code(s): E87.6 - HYPOKALEMIA Status: Acute Comment: Repleted with Potassium protocol (5) Hypothyroidism Code(s): E03.9 - HYPOTHYROIDISM, UNSPECIFIED Status: Acute Qualifiers: Hypothyroidism type: unspecified Qualified Code(s): E03.9 - Hypothyroidism , unspecified Comment: stable, continue synthroid (6) Status post coronary artery bypass graft Code(s): Z95.1 - PRESENCE OF AORTOCORONARY BYPASS GRAFT Status: Acute Comment: 2v CABG, CT surgery consulted for pts Readmisison with hypotension. Follow recommedations., - Plan cont current plan of care, PT/OT, group social worker, respiratory therapy, incentive spirometry, out of bed/ambulate, DVT proph w/lovenox, DVT proph w/SCDs * . Review of Systems - Review of Systems Constitutional: weakness, malaise Neurological: Weakness - Medications/Allergies Allergies/Adverse Reactions: Allergies Allergy/AdvReac Type Severity Reaction Status Date / Time No Known Drug Allergies Allergy Verified 12/30/17 21:12 Medications: Current Medications Hydrocodone Bitart/Acetaminophen ([place] 5/325) 1 tab PO Q6H PRN PRN Reason: Moderate Pain (4-6) Last Admin: 01/28/18 03:59 Dose: 1 tab Hydrocodone Bitart/Acetaminophen ([place] 5/325) 2 tab PO Q6H PRN PRN Reason: Severe Pain (7-10) Last Admin: 01/26/18 22:20 Dose: 2 tab Amitriptyline HCl (Elavil) 25 mg PO HS [facility] Last Admin: 01/27/18 20:59 Dose: 25 mg Apixaban (Eliquis) 5 mg PO BID [facility] Last Admin: 01/28/18 09:55 Dose: 5 mg Aspirin (Ecotrin) 81 mg PO DAILY [facility] Last Admin: 01/28/18 09:55 Dose: 81 mg Atorvastatin Calcium (Lipitor) 80 mg PO HS [facility] Last Admin: 01/27/18 20:59 Dose: 80 mg Clonazepam (Klonopin) 1 mg PO QAM [facility] Last Admin: 01/28/18 08:15 Dose: 1 mg Clonazepam (Klonopin) 3 mg PO HS [facility] Last Admin: 01/27/18 20:59 Dose: 3 mg Hydrocortisone Sodium Succinate (Solu-Cortef) 50 mg IVP Q6HR [facility] Stop: 02/02/18 18:01 Last Admin: 01/28/18 12:22 Dose: 50 mg Levothyroxine Sodium (Synthroid) 100 mcg PO 0600 [facility] Last Admin: 01/28/18 05:39 Dose: 100 mcg Ondansetron HCl (Zofran) 4 mg IVP Q6H PRN PRN Reason: Nausea/Vomiting Last Admin: 01/28/18 00:55 Dose: 4 mg Paroxetine HCl (Paxil) 60 mg PO DAILY [facility] Last Admin: 01/28/18 08:15 Dose: 60 mg Sodium Chloride (Flush - Normal Saline) 10 ml IVF Q12HR [facility] Last Admin: 01/28/18 09:55 Dose: 10 ml Sodium Chloride (Flush - Normal Saline) 10 ml IVF PRN PRN PRN Reason: Saline Flush Last Admin: 01/28/18 00:55 Dose: 10 ml
[2018-01-28] MEDS: Atorvastatin Calcium 40 MG TAB PO SCH (21:06)
[2018-01-28] MEDS: Amitriptyline HCl 25 MG TAB PO SCH (21:06)
[2018-01-29] MEDS: HYDROcodone/Acetaminophen 5/325 mg Tablet PO PRN ×2 (02:21→17:40)
[2018-01-29 04:41] LABS: Hemoglobin 7.6 g/dL (14.0-18.0); Platelet Count 128 thou/uL (130-400)
[2018-01-29] MEDS: Hydrocortisone Sod Succ/PF 100 mg/2 ml Vial IVP SCH ×3 (05:43→17:39)
[2018-01-29] MEDS: Levothyroxine Sodium 100 MCG TAB PO SCH (05:45)
[2018-01-29] MEDS ORDERED: ADDERALL 30 MG PO SCH (08:00)
[2018-01-29] MEDS: PARoxetine 20 MG TAB PO SCH (09:05)
[2018-01-29] MEDS: clonazePAM 1 MG TAB PO SCH ×2 (09:06→21:20)
[2018-01-29] MEDS: Pantoprazole 80 MG in Sodium Chloride 0.9% 100 ML IVPB SCH ×2 (09:25→19:14)
[2018-01-29] MEDS ORDERED: RITALIN 20 MG PO SCH (12:00)
--- NOTE | 2018-01-29 12:25 | PDOC.PN ---
- Subjective Encounter Start Date: 01/29/18 Encounter Start Time: 08:20 Subjective: no bleeding per rectum, wants his adderal from now -: no chest pain or sob -: was amb at home, has chronic right ankle pain - Objective MAR Reviewed: Yes Vital Signs & Weight: Vital Signs (12 hours) Temp Pulse Resp BP BP Pulse Ox 01/29/18 08:59 98.7 F 58 L 18 113/59 L 96 01/29/18 04:00 98.4 F 55 L 17 126/72 96 Weight Weight 273 lb 9.6 oz Most Recent Monitor Data Heart Rate from ECG 56 NIBP 97/45 NIBP BP-Mean 70 Respiration from ECG 12 SpO2 95 I&O: 01/28/18 01/29/18 01/30/18 06:59 06:59 06:59 Intake Total 3013 2360 Output Total 1450 1400 Balance 1563 960 Result Diagrams: 01/29/18 04:03 01/29/18 04:03 Additional Labs: Accuchecks 01/29/18 01/29/18 01/28/18 10:43 06:00 21:12 POC Glucose 157 H 119 H 155 H 01/28/18 01/28/18 17:26 06:16 POC Glucose 109 89 Phys Exam - Physical Examination HEENT: PERRLA, moist MMs pallor+ Neck: no JVD, supple Respiratory: no wheezing rales+ Cardiovascular: RRR, no significant murmur Gastrointestinal: soft, no distention, positive bowel sounds Musculoskeletal: pulses present, edema present Neurological: non-focal, moves all 4 limbs Psychiatric: A&O x 3 Dx/Plan (1) Anemia Code(s): D64.9 - ANEMIA, UNSPECIFIED Status: Acute Qualifiers: Anemia type: unspecified type Qualified Code(s): D64.9 - Anemia, unspecified (2) Acute hypotension Code(s): I95.9 - HYPOTENSION, UNSPECIFIED Status: Resolved (3) CAD (coronary artery disease) Code(s): I25.10 - ATHSCL HEART DISEASE OF [place] CORONARY ARTERY W/O ANG PCTRS Status: Chronic Qualifiers: Coronary Disease-Associated Artery/Lesion type: bypass graft [place] vs. transplanted heart: [place] heart Associated angina: without angina Qualified Code(s): I25.810 - Atherosclerosis of coronary artery bypass graft(s) without angina pectoris (4) Afib Code(s): I48.91 - UNSPECIFIED ATRIAL FIBRILLATION Status: Chronic Qualifiers: Atrial fibrillation type: chronic Qualified Code(s): I48.2 - Chronic atrial fibrillation (5) Hypothyroidism Code(s): E03.9 - HYPOTHYROIDISM, UNSPECIFIED Status: Chronic Qualifiers: Hypothyroidism type: unspecified Qualified Code(s): E03.9 - Hypothyroidism , unspecified Comment: stable, continue synthroid (6) CKD (chronic kidney disease) stage 3, GFR 30-59 ml/min Code(s): N18.3 - CHRONIC KIDNEY DISEASE, STAGE 3 (MODERATE) Status: Chronic Comment: Avoid nephrotoxic meds and limit contrast exposure - Plan Hb has dropped significantly from admission, no obvious source of bleeding -: needs eliquis for afib and asp, will get GI consultation -: liq diet, change adderal to ritalin for now -: protonix drip, serial h/h -: continue hydrocortisone for now, still needing oxygen * . To ambulate in room. Review of Systems - Medications/Allergies Allergies/Adverse Reactions: Allergies Allergy/AdvReac Type Severity Reaction Status Date / Time No Known Drug Allergies Allergy Verified 12/30/17 21:12 Medications: Current Medications Hydrocodone Bitart/Acetaminophen ([place] 5/325) 1 tab PO Q6H PRN PRN Reason: Moderate Pain (4-6) Last Admin: 01/28/18 03:59 Dose: 1 tab Hydrocodone Bitart/Acetaminophen ([place] 5/325) 2 tab PO Q6H PRN PRN Reason: Severe Pain (7-10) Last Admin: 01/29/18 02:21 Dose: 2 tab Amitriptyline HCl (Elavil) 25 mg PO HS [facility] Last Admin: 01/28/18 21:06 Dose: 25 mg Atorvastatin Calcium (Lipitor) 80 mg PO HS [facility] Last Admin: 01/28/18 21:06 Dose: 80 mg Clonazepam (Klonopin) 1 mg PO QAM [facility] Last Admin: 01/29/18 09:06 Dose: 1 mg Clonazepam (Klonopin) 3 mg PO HS [facility] Last Admin: 01/28/18 21:05 Dose: 3 mg Hydrocortisone Sodium Succinate (Solu-Cortef) 50 mg IVP Q6HR [facility] Stop: 02/02/18 18:01 Last Admin: 01/29/18 05:43 Dose: 50 mg Pantoprazole Sodium 80 mg/ (Sodium Chloride) 100 mls @ 10 mls/hr IVPB INF [facility] Last Admin: 01/29/18 09:25 Dose: 100 mls Levothyroxine Sodium (Synthroid) 100 mcg PO 0600 [facility] Last Admin: 01/29/18 05:45 Dose: 100 mcg Methylphenidate HCl (Ritalin) 20 mg PO 0800,1200 [facility] Ondansetron HCl (Zofran) 4 mg IVP Q6H PRN PRN Reason: Nausea/Vomiting Last Admin: 01/28/18 00:55 Dose: 4 mg Paroxetine HCl (Paxil) 60 mg PO DAILY [facility] Last Admin: 01/29/18 09:05 Dose: 60 mg Sodium Chloride (Flush - Normal Saline) 10 ml IVF Q12HR [facility] Last Admin: 01/29/18 09:06 Dose: 10 ml Sodium Chloride (Flush - Normal Saline) 10 ml IVF PRN PRN PRN Reason: Saline Flush Last Admin: 01/29/18 05:45 Dose: 10 ml
[2018-01-29 12:44] LABS: Hemoglobin 7.9 g/dL (14.0-18.0)
--- NOTE | 2018-01-29 16:11 | CON ---
DATE OF CONSULTATION: 01/29/2018 GASTROENTEROLOGY CONSULTATION CHIEF COMPLAINT: Anemia. HISTORY OF PRESENT ILLNESS: Mr. Stafford is a 62-year-old man who was admitted to the hospital with hypo tension. He had undergone coronary artery bypass graft on 01/02/2018. He was admitted with hemoglob in prior to the heart surgery. He had a hemoglobin of 12 at that time. At the time of discharge aft er heart surgery, his hemoglobin was 7.9. When he presented back to the emergency room this [facility] [place] emergency department on 01/24/2018, his hemoglobin is 9.7 and he received several liters of fluid and his hemoglob in has gone back down to 7.9. Looking further back in 10/2018, his hemoglobin is 14. He was noted t o have a decrease in his hemoglobin this hospital stay as above and GI was consulted to evaluate for GI bleeding. The patient reports no black stools or red stools. He has had no nausea, vomiting, and he is tolerating his diet well. He has never had a colonoscopy. He did have a peptic ulcer back in 2004 that was attributed to H. pylori for which he received antibiotics. He was started on Eliquis when he was hospitalized for his heart surgery which was started for atrial fibrillation. He is in s inus rhythm now. His blood pressure is improved and is running in 118/57 range; however, he was down at 97/45 couple of days ago. He has had continued requirement for oxygen by nasal cannula; however and yesterday his oxygen saturation was withdrawn down to 92% on 2 liters. However, he is up at 96% saturation today on 2 liters nasal cannula. PAST MEDICAL HISTORY: Coronary artery disease, hypertension, atrial fibrillation, chronic kidney dis ease, chronic fatigue syndrome, fibromyalgia, diabetes mellitus type 2, peptic ulcer back in 2004 att ributed to H. pylori. PAST SURGICAL HISTORY: Coronary artery bypass graft on 01/02/2018. He has had bilateral hernia repa ir and back surgery. FAMILY HISTORY: Negative for GI malignancy. His mother and his brother had some type of hematologic malignancy. SOCIAL HISTORY: No alcohol, tobacco or drugs. He quit alcohol 28 years ago. He may be drank a case per week prior to that. ALLERGIES: No known drug allergies. MEDICATIONS AT HOME: Atorvastatin, amitriptyline, Solu-Cortef IV, levothyroxine, methylphenidate, pa ntoprazole, currently begin his IV drip. He was on Eliquis prior to admission. He was also on amiod arone prior to admission. REVIEW OF SYSTEMS: Negative x10 systems reviewed except as stated in history of present illness. PHYSICAL EXAMINATION: VITAL SIGNS: Temperature 98.5, pulse 53, blood pressure 111/57. EYES: Have no scleral icterus. OROPHARYNX: Clear without lesions. NECK: No cervical or supraclavicular lymphadenopathy. LUNGS: Clear to auscultation bilaterally. HEART: Regular rate and rhythm without murmur. ABDOMEN: Soft, nontender and nondistended. Bowel sounds are present. EXTREMITIES: No lower extremity edema. NEUROLOGIC: Cranial nerves are grossly intact. LABORATORY DATA: His creatinine is 1.75, bilirubin 0.7, AST 42, ALT 31, alkaline phosphatase 102, he moglobin 7.9 on admission, it was 9.7 prior to several liters of fluid. Hemoglobin on discharge from hospital on 01/09/2018 was 7.9 and INR 1.9. IMPRESSION: 1. Anemia. He has had no overt GI bleeding. His hemoglobin is stable compared to discharge about a month ago. He did receive several liters of fluid for hypotension at the time of admission, which m ay account for drop in his hemoglobin during this hospital stay. Looking further back; however, his baseline hemoglobin appears to be around 14 back in 10/2017. He has been on Eliquis over the last mo [facility]. He has a history of peptic ulcer disease attributed to H. pylori in 2004. He has never had a c olonoscopy. 2. Hypotension. 3. Coronary artery disease and atrial fibrillation. 4. Need for chronic anticoagulation due to the atrial fibrillation. RECOMMENDATIONS: 1. Check H. pylori stool antigen. 2. Empiric treatment with proton pump inhibitor. 3. Check iron studies. 4. Recheck PT/INR. This may have been elevated related to the Eliquis and chronic renal insufficien cy. 5. If he is iron deficient, then consider more immediate endoscopy. As long as there is no overt bl eeding, then I would defer EGD and colonoscopy until his blood pressure and oxygen requirements are i mproved. We will continue follow trend of the hemoglobin.
[2018-01-29 16:44] LABS: Iron 32 ug/dL (65-175); Iron Binding Capacity, Total 206 mcg/dL (261-462)
[2018-01-29 17:18] LABS: Folate (Folic Acid) 7.3 ng/mL (7.0-31.4)
[2018-01-29] MEDS: Atorvastatin Calcium 40 MG TAB PO SCH (21:19)
[2018-01-29] MEDS: Amitriptyline HCl 25 MG TAB PO SCH (21:20)
[2018-01-30] MEDS: Hydrocortisone Sod Succ/PF 100 mg/2 ml Vial IVP SCH ×3 (00:16→12:21)
[2018-01-30] MEDS: Pantoprazole 80 MG in Sodium Chloride 0.9% 100 ML IVPB SCH (03:56)
[2018-01-30] MEDS: HYDROcodone/Acetaminophen 5/325 mg Tablet PO PRN ×2 (03:58→18:40)
[2018-01-30 04:58] LABS: #Lymphocytes 0.7 thou/uL (1.20-3.40); #Monocytes 0.6 thou/uL (0.11-0.59); #Neutrophils 6.2 thou/uL (1.40-6.50); %Basophils 0.5 % (0.0-1.0); %Eosinophils 0.2 % (0.0-10.0); %Lymphocytes 9.3 % (21.0-51.0); %Monocytes 8.4 % (0.0-10.0); %Neutrophils 81.6 % (42.0-75.0); Mean Corpuscular HGB CONC 33.3 g/dL (32.0-36.0); Mean Corpuscular Hemoglobin 30.9 pg (27.0-31.0); Mean Corpuscular Volume 92.6 fL (78.0-98.0); Mean Platelet Volume 8.6 fL (7.4-10.4); Platelet Count 127 thou/uL (130-400); RBC Distribution Width 13.5 % (11.5-14.5); White Blood Cell (WBC) Count 7.6 thou/uL (4.8-10.8)
[2018-01-30 05:14] LABS: Anion Gap 14 mmol/L (10-20); BUN (Urea Nitrogen) 20 mg/dL (8.4-25.7); Calc. Creatinine Clearance 80 mL/min (70-130); Calcium 8.1 mg/dL (7.8-10.44); Carbon Dioxide 21 mmol/L (23-31); Chloride 107 mmol/L (98-107); Estimated GFR-MDRD 43; Glucose 104 mg/dL (80-115); Potassium 3.6 mmol/L (3.5-5.1); Sodium 138 mmol/L (136-145)
[2018-01-30] MEDS: Levothyroxine Sodium 100 MCG TAB PO SCH (05:39)
[2018-01-30] MEDS: Aspirin 81 mg Enteric Coated Tablet PO SCH (09:02)
[2018-01-30] MEDS: PARoxetine 20 MG TAB PO SCH (09:02)
[2018-01-30] MEDS: clonazePAM 1 MG TAB PO SCH ×2 (09:03→20:41)
--- NOTE | 2018-01-30 11:39 | PDOC.PN ---
- Subjective Encounter Start Date: 01/30/18 Encounter Start Time: 08:00 Subjective: no sob or dizziness -: is amb in room -: no bleeding per rectum - Objective MAR Reviewed: Yes Vital Signs & Weight: Vital Signs (12 hours) Temp Pulse Resp BP Pulse Ox 01/30/18 08:59 99.0 F 65 17 108/55 L 93 L 01/30/18 04:00 98.3 F 52 L 18 144/77 H 96 01/30/18 00:00 99.2 F 51 L 18 130/77 94 L Weight Weight 277 lb 1.6 oz Most Recent Monitor Data Heart Rate from ECG 56 NIBP 97/45 NIBP BP-Mean 70 Respiration from ECG 12 SpO2 95 I&O: 01/29/18 01/30/18 01/31/18 06:59 06:59 06:59 Intake Total 2360 1926 Output Total 1400 1700 Balance 960 226 Result Diagrams: 01/30/18 04:04 01/30/18 04:04 Additional Labs: Accuchecks 01/30/18 01/30/18 01/29/18 10:53 05:51 20:41 POC Glucose 111 H 111 H 189 H 01/29/18 16:50 POC Glucose 111 H Phys Exam - Physical Examination HEENT: PERRLA, moist MMs Neck: no JVD, supple Respiratory: no wheezing, no rales Cardiovascular: RRR, no significant murmur Gastrointestinal: soft, non-tender, positive bowel sounds Musculoskeletal: no edema, pulses present Neurological: non-focal, moves all 4 limbs Psychiatric: A&O x 3 Dx/Plan (1) Anemia Code(s): D64.9 - ANEMIA, UNSPECIFIED Status: Acute Qualifiers: Anemia type: unspecified type Qualified Code(s): D64.9 - Anemia, unspecified (2) Acute hypotension Code(s): I95.9 - HYPOTENSION, UNSPECIFIED Status: Resolved (3) CAD (coronary artery disease) Code(s): I25.10 - ATHSCL HEART DISEASE OF [place] CORONARY ARTERY W/O ANG PCTRS Status: Chronic Qualifiers: Coronary Disease-Associated Artery/Lesion type: bypass graft [place] vs. transplanted heart: [place] heart Associated angina: without angina Qualified Code(s): I25.810 - Atherosclerosis of coronary artery bypass graft(s) without angina pectoris (4) Afib Code(s): I48.91 - UNSPECIFIED ATRIAL FIBRILLATION Status: Chronic Qualifiers: Atrial fibrillation type: chronic Qualified Code(s): I48.2 - Chronic atrial fibrillation (5) Hypothyroidism Code(s): E03.9 - HYPOTHYROIDISM, UNSPECIFIED Status: Chronic Qualifiers: Hypothyroidism type: unspecified Qualified Code(s): E03.9 - Hypothyroidism , unspecified Comment: stable, continue synthroid (6) CKD (chronic kidney disease) stage 3, GFR 30-59 ml/min Code(s): N18.3 - CHRONIC KIDNEY DISEASE, STAGE 3 (MODERATE) Status: Chronic Comment: Avoid nephrotoxic meds and limit contrast exposure - Plan switch to oral steroids if ok with -: hb around 8g, no active bleeding -: is back on aspirin, hold off eliquis, pt in sinus rhythm now (HR 50's) -: renal function is stable -: to amb in [facility], dc plan 24hrs after being on oral steroids. * . Review of Systems - Medications/Allergies Allergies/Adverse Reactions: Allergies Allergy/AdvReac Type Severity Reaction Status Date / Time No Known Drug Allergies Allergy Verified 12/30/17 21:12 Medications: Current Medications Hydrocodone Bitart/Acetaminophen ([place] 5/325) 1 tab PO Q6H PRN PRN Reason: Moderate Pain (4-6) Last Admin: 01/30/18 03:58 Dose: 1 tab Hydrocodone Bitart/Acetaminophen ([place] 5/325) 2 tab PO Q6H PRN PRN Reason: Severe Pain (7-10) Last Admin: 01/29/18 17:40 Dose: 2 tab Amitriptyline HCl (Elavil) 25 mg PO HS [facility] Last Admin: 01/29/18 21:20 Dose: 25 mg Aspirin (Ecotrin) 81 mg PO DAILY [facility] Last Admin: 01/30/18 09:02 Dose: 81 mg Atorvastatin Calcium (Lipitor) 80 mg PO HS [facility] Last Admin: 01/29/18 21:19 Dose: 80 mg Clonazepam (Klonopin) 1 mg PO QAM [facility] Last Admin: 01/30/18 09:03 Dose: 1 mg Clonazepam (Klonopin) 3 mg PO HS [facility] Last Admin: 01/29/18 21:20 Dose: 3 mg Hydrocortisone Sodium Succinate (Solu-Cortef) 50 mg IVP Q6HR [facility] Stop: 02/02/18 18:01 Last Admin: 01/30/18 05:38 Dose: 50 mg Levothyroxine Sodium (Synthroid) 100 mcg PO 0600 [facility] Last Admin: 01/30/18 05:39 Dose: 100 mcg Methylphenidate HCl (Ritalin) 20 mg PO 0800,1200 [facility] Last Admin: 01/30/18 09:01 Dose: 20 mg Ondansetron HCl (Zofran) 4 mg IVP Q6H PRN PRN Reason: Nausea/Vomiting Last Admin: 01/28/18 00:55 Dose: 4 mg Pantoprazole Sodium (Protonix) 40 mg PO DAILY [facility] Last Admin: 01/30/18 09:02 Dose: 40 mg Paroxetine HCl (Paxil) 60 mg PO DAILY [facility] Last Admin: 01/30/18 09:02 Dose: 60 mg Sodium Chloride (Flush - Normal Saline) 10 ml IVF Q12HR [facility] Last Admin: 01/30/18 09:03 Dose: 10 ml Sodium Chloride (Flush - Normal Saline) 10 ml IVF PRN PRN PRN Reason: Saline Flush Last Admin: 01/29/18 17:42 Dose: 10 ml
--- NOTE | 2018-01-30 13:17 | PRG ---
DATE OF SERVICE: 01/30/2018 SUBJECTIVE: Mr. Stafford has no acute complaints today. He did take a hot shower and felt weak after th at, but overall feels better today. He has had no bowel movement in the last couple of days. PHYSICAL EXAMINATION: VITAL SIGNS: Blood pressure 118/64, temperature 98.9, pulse 63. He is still requiring oxygen by naeem al cannula. LABORATORY DATA: White blood cell count 7.6, hemoglobin 8.0, platelets 127, creatinine 1.64. IMPRESSION: Anemia. His hemoglobin is stable compared to when he was discharged from the hospital a fter heart surgery. He did decrease his hemoglobin at the time of heart surgery. His ferritin is no rmal at 223. Iron and TIBC are low consistent with anemia of chronic disease. He has had no overt g astrointestinal bleeding. RECOMMENDATIONS: 1. Await stool H. pylori antigen. 2. Continue to treat empirically with proton pump inhibitor in light of his past history of peptic u lcer in 2004. 3. He is due for screening colonoscopy. We can perform upper and lower endoscopy; however, I would defer this until his blood pressure and oxygen requirement improve further. He just had heart surger y and has had generalized weakness since then. There is no overt GI bleeding. I will plan for EGD a nd colonoscopy in 2-4 weeks unless he starts developing more acute signs of bleeding. My concern at this time is that he has been running low blood pressure which has not been fully explained and the p ropofol may decrease cardiac contractility combined with his increased oxygen requirement. 4. I will sign off for now, please call if GI can be of assistance.
[2018-01-30] MEDS: Ondansetron HCl/PF 4 MG/2 ML Vial IVP PRN (15:46)
[2018-01-30] MEDS: Atorvastatin Calcium 40 MG TAB PO SCH (20:40)
[2018-01-30] MEDS: Amitriptyline HCl 25 MG TAB PO SCH (20:41)
[2018-01-30] MEDS: Fish Oil 1,000 MG CAP PO SCH (20:42)
[2018-01-31] MEDS: HYDROcodone/Acetaminophen 5/325 mg Tablet PO PRN ×4 (00:03→21:18)
[2018-01-31] MEDS: Levothyroxine Sodium 100 MCG TAB PO SCH (05:08)
[2018-01-31] MEDS: Ondansetron HCl/PF 4 MG/2 ML Vial IVP PRN ×3 (06:19→22:18)
[2018-01-31 07:34] LABS: #Eosinphils 0.1 thou/uL (0.0-0.7); #Lymphocytes 1.4 thou/uL (1.20-3.40); #Monocytes 0.7 thou/uL (0.11-0.59); #Neutrophils 3.9 thou/uL (1.40-6.50); %Basophils 0.1 % (0.0-1.0); %Eosinophils 1.5 % (0.0-10.0); %Lymphocytes 23.4 % (21.0-51.0); %Monocytes 11.2 % (0.0-10.0); %Neutrophils 63.8 % (42.0-75.0); Hemoglobin 7.5 g/dL (14.0-18.0); Mean Corpuscular HGB CONC 33.6 g/dL (32.0-36.0); Mean Corpuscular Hemoglobin 31.5 pg (27.0-31.0); Mean Corpuscular Volume 93.7 fL (78.0-98.0); Platelet Count 106 thou/uL (130-400); RBC Distribution Width 13.8 % (11.5-14.5); Red Blood Cell (RBC) Count 2.38 mill/uL (4.70-6.10); White Blood Cell (WBC) Count 6.1 thou/uL (4.8-10.8)
[2018-01-31 07:49] LABS: Anion Gap 10 mmol/L (10-20); BUN (Urea Nitrogen) 20 mg/dL (8.4-25.7); Calc. Creatinine Clearance 81 mL/min (70-130); Carbon Dioxide 24 mmol/L (23-31); Chloride 106 mmol/L (98-107); Estimated GFR-MDRD 42; Glucose 76 mg/dL (80-115); Potassium 3.3 mmol/L (3.5-5.1); Sodium 137 mmol/L (136-145)
[2018-01-31] MEDS: clonazePAM 1 MG TAB PO SCH ×2 (09:27→21:17)
[2018-01-31] MEDS: Fish Oil 1,000 MG CAP PO SCH ×2 (09:27→21:17)
[2018-01-31] MEDS: PARoxetine 20 MG TAB PO SCH (09:28)
[2018-01-31] MEDS: predniSONE 20 MG TAB PO SCH (09:28)
[2018-01-31] MEDS: Aspirin 81 mg Enteric Coated Tablet PO SCH (09:28)
--- NOTE | 2018-01-31 10:44 | PDOC.PN ---
- Subjective Encounter Start Date: 01/31/18 Encounter Start Time: 08:30 Subjective: no sob at rest or chest pain -: feels better -: is amb in room and a bit in the hallway, has exertional sob - Objective MAR Reviewed: Yes Vital Signs & Weight: Vital Signs (12 hours) Temp Pulse Resp BP Pulse Ox 01/31/18 03:32 93 L 01/31/18 03:26 99.0 F 60 20 132/65 93 L Weight Weight 278 lb 3.2 oz Most Recent Monitor Data Heart Rate from ECG 56 NIBP 97/45 NIBP BP-Mean 70 Respiration from ECG 12 SpO2 95 I&O: 01/30/18 01/31/18 02/01/18 06:59 06:59 06:59 Intake Total 1926 2300 Output Total 1700 625 Balance 226 1675 Result Diagrams: 01/31/18 04:00 01/31/18 04:00 Additional Labs: Accuchecks 01/31/18 01/30/18 01/30/18 06:09 20:46 16:33 POC Glucose 86 114 H 113 H 01/30/18 10:53 POC Glucose 111 H Phys Exam - Physical Examination HEENT: PERRLA, moist MMs Neck: no JVD, supple Respiratory: no wheezing, no rales Cardiovascular: RRR, no significant murmur Gastrointestinal: soft, non-tender, positive bowel sounds Musculoskeletal: pulses present, edema present Neurological: non-focal, moves all 4 limbs Psychiatric: A&O x 3 Dx/Plan (1) Anemia Code(s): D64.9 - ANEMIA, UNSPECIFIED Status: Acute Qualifiers: Anemia type: unspecified type Qualified Code(s): D64.9 - Anemia, unspecified (2) Acute hypotension Code(s): I95.9 - HYPOTENSION, UNSPECIFIED Status: Resolved Comment: likely due to adrenal insuff (3) CAD (coronary artery disease) Code(s): I25.10 - ATHSCL HEART DISEASE OF [place] CORONARY ARTERY W/O ANG PCTRS Status: Chronic Qualifiers: Coronary Disease-Associated Artery/Lesion type: bypass graft [place] vs. transplanted heart: [place] heart Associated angina: without angina Qualified Code(s): I25.810 - Atherosclerosis of coronary artery bypass graft(s) without angina pectoris (4) Afib Code(s): I48.91 - UNSPECIFIED ATRIAL FIBRILLATION Status: Chronic Qualifiers: Atrial fibrillation type: chronic Qualified Code(s): I48.2 - Chronic atrial fibrillation (5) Hypothyroidism Code(s): E03.9 - HYPOTHYROIDISM, UNSPECIFIED Status: Chronic Qualifiers: Hypothyroidism type: unspecified Qualified Code(s): E03.9 - Hypothyroidism , unspecified Comment: stable, continue synthroid (6) CKD (chronic kidney disease) stage 3, GFR 30-59 ml/min Code(s): N18.3 - CHRONIC KIDNEY DISEASE, STAGE 3 (MODERATE) Status: Chronic Comment: Avoid nephrotoxic meds and limit contrast exposure - Plan transfuse 1 u prbc with hct of 21, recent cabg, exertional sob -: continue asp, crestor and prednisone 20mg daily -: creatinine stable around 1.6 -: cm for HH with PT on discharge either later this evening or in am -: needs close f/u with PCP given multiple medical condition * . Review of Systems - Medications/Allergies Allergies/Adverse Reactions: Allergies Allergy/AdvReac Type Severity Reaction Status Date / Time No Known Drug Allergies Allergy Verified 12/30/17 21:12 Medications: Current Medications Hydrocodone Bitart/Acetaminophen ([place] 5/325) 1 tab PO Q6H PRN PRN Reason: Moderate Pain (4-6) Last Admin: 01/31/18 00:03 Dose: 1 tab Hydrocodone Bitart/Acetaminophen ([place] 5/325) 2 tab PO Q6H PRN PRN Reason: Severe Pain (7-10) Last Admin: 01/31/18 06:18 Dose: 2 tab Amitriptyline HCl (Elavil) 25 mg PO HS [facility] Last Admin: 01/30/18 20:41 Dose: 25 mg Aspirin (Ecotrin) 81 mg PO DAILY [facility] Last Admin: 01/31/18 09:28 Dose: 81 mg Atorvastatin Calcium (Lipitor) 80 mg PO HS [facility] Last Admin: 01/30/18 20:40 Dose: 80 mg Clonazepam (Klonopin) 1 mg PO QAM [facility] Last Admin: 01/31/18 09:27 Dose: 1 mg Clonazepam (Klonopin) 3 mg PO HS [facility] Last Admin: 01/30/18 20:41 Dose: 3 mg Fish Oil (Fish Oil) 2,000 mg PO BID [facility] Last Admin: 07/06/18 09:27 Dose: 2,000 mg Levothyroxine Sodium (Synthroid) 100 mcg PO 0600 [facility] Last Admin: 01/31/18 05:08 Dose: 100 mcg Methylphenidate HCl (Ritalin) 20 mg PO 0800,1200 [facility] Last Admin: 01/31/18 09:26 Dose: 20 mg Ondansetron HCl (Zofran) 4 mg IVP Q6H PRN PRN Reason: Nausea/Vomiting Last Admin: 01/31/18 06:19 Dose: 4 mg Pantoprazole Sodium (Protonix) 40 mg PO DAILY [facility] Last Admin: 01/31/18 09:28 Dose: 40 mg Paroxetine HCl (Paxil) 60 mg PO DAILY [facility] Last Admin: 01/31/18 09:28 Dose: 60 mg Prednisone (Prednisone) 20 mg PO [facility] Last Admin: 01/31/18 09:28 Dose: 20 mg Sodium Chloride (Flush - Normal Saline) 10 ml IVF Q12HR [facility] Last Admin: 01/31/18 09:29 Dose: 10 ml Sodium Chloride (Flush - Normal Saline) 10 ml IVF PRN PRN PRN Reason: Saline Flush Last Admin: 01/30/18 15:47 Dose: 10 ml
[2018-01-31] MEDS ORDERED: Acetaminophen 500 MG TAB PO SCH (15:15)
[2018-01-31] MEDS ORDERED: diphenhydrAMINE 25 MG CAP PO SCH (15:15)
[2018-01-31] MEDS: Amitriptyline HCl 25 MG TAB PO SCH (21:18)
[2018-01-31] MEDS: Atorvastatin Calcium 40 MG TAB PO SCH (21:19)
[2018-01-31] MEDS: Zolpidem Tartrate 5 MG TAB PO PRN (22:18)
[2018-02-01] MEDS: HYDROcodone/Acetaminophen 5/325 mg Tablet PO PRN ×3 (03:34→19:48)
[2018-02-01 05:10] LABS: #Eosinphils 0.1 thou/uL (0.0-0.7); #Monocytes 0.9 thou/uL (0.11-0.59); #Neutrophils 5.5 thou/uL (1.40-6.50); %Eosinophils 1.2 % (0.0-10.0); %Lymphocytes 12.7 % (21.0-51.0); Hemoglobin 8.1 g/dL (14.0-18.0); Mean Corpuscular HGB CONC 33.9 g/dL (32.0-36.0); Mean Corpuscular Hemoglobin 31.5 pg (27.0-31.0); Mean Corpuscular Volume 92.9 fL (78.0-98.0); Mean Platelet Volume 8.2 fL (7.4-10.4); Platelet Count 110 thou/uL (130-400); RBC Distribution Width 13.9 % (11.5-14.5); Red Blood Cell (RBC) Count 2.59 mill/uL (4.70-6.10); White Blood Cell (WBC) Count 7.5 thou/uL (4.8-10.8)
[2018-02-01] MEDS: Levothyroxine Sodium 100 MCG TAB PO SCH (05:18)
[2018-02-01 05:22] LABS: Anion Gap 10 mmol/L (10-20); BUN (Urea Nitrogen) 20 mg/dL (8.4-25.7); Calc. Creatinine Clearance 83 mL/min (70-130); Calcium 8.1 mg/dL (7.8-10.44); Carbon Dioxide 26 mmol/L (23-31); Chloride 107 mmol/L (98-107); Estimated GFR-MDRD 44; Glucose 89 mg/dL (80-115); Potassium 3.3 mmol/L (3.5-5.1); Sodium 140 mmol/L (136-145)
[2018-02-01] MEDS: Aspirin 81 mg Enteric Coated Tablet PO SCH (08:21)
[2018-02-01] MEDS: Fish Oil 1,000 MG CAP PO SCH ×2 (08:21→19:44)
[2018-02-01] MEDS: PARoxetine 20 MG TAB PO SCH (08:21)
[2018-02-01] MEDS: predniSONE 20 MG TAB PO SCH (08:21)
[2018-02-01] MEDS: clonazePAM 1 MG TAB PO SCH ×2 (09:00→19:44)
--- NOTE | 2018-02-01 11:14 | PDOC.PN ---
- Subjective Encounter Start Date: 02/01/18 Encounter Start Time: 09:15 Subjective: has exertional sob, no chest pain, feels overall better -: no bleeding per rectum -: is amb in hallway - Objective MAR Reviewed: Yes Vital Signs & Weight: Vital Signs (12 hours) Temp Pulse Pulse Pulse Resp BP BP 02/01/18 09:00 92 71 184/90 H 119/66 02/01/18 08:00 98.7 F 72 18 02/01/18 03:28 98.2 F 66 20 02/01/18 00:48 BP BP Pulse Ox Pulse Ox 02/01/18 09:00 81 L 02/01/18 08:00 134/68 93 L 02/01/18 03:28 138/76 92 L 02/01/18 00:48 93 L Weight Weight 278 lb 12.8 oz Most Recent Monitor Data Heart Rate from ECG 56 NIBP 97/45 NIBP BP-Mean 70 Respiration from ECG 12 SpO2 95 I&O: 01/31/18 02/01/18 02/02/18 06:59 06:59 06:59 Intake Total 2300 1999 Output Total 625 Balance 1675 1999 Result Diagrams: 02/01/18 04:10 02/01/18 04:10 Additional Labs: Accuchecks 02/01/18 01/31/18 01/31/18 06:02 20:57 16:35 POC Glucose 88 176 H 120 H Phys Exam - Physical Examination HEENT: PERRLA, moist MMs Neck: no JVD, supple Respiratory: no wheezing, no rales Cardiovascular: RRR, no significant murmur Gastrointestinal: soft, non-tender, positive bowel sounds Musculoskeletal: pulses present, edema present Neurological: non-focal, moves all 4 limbs Psychiatric: normal affect, A&O x 3 Dx/Plan (1) Anemia Code(s): D64.9 - ANEMIA, UNSPECIFIED Status: Acute Qualifiers: Anemia type: unspecified type Qualified Code(s): D64.9 - Anemia, unspecified (2) Acute hypotension Code(s): I95.9 - HYPOTENSION, UNSPECIFIED Status: Resolved Comment: likely due to adrenal insuff (3) CAD (coronary artery disease) Code(s): I25.10 - ATHSCL HEART DISEASE OF [place] CORONARY ARTERY W/O ANG PCTRS Status: Chronic Qualifiers: Coronary Disease-Associated Artery/Lesion type: bypass graft [place] vs. transplanted heart: [place] heart Associated angina: without angina Qualified Code(s): I25.810 - Atherosclerosis of coronary artery bypass graft(s) without angina pectoris (4) Afib Code(s): I48.91 - UNSPECIFIED ATRIAL FIBRILLATION Status: Chronic Qualifiers: Atrial fibrillation type: chronic Qualified Code(s): I48.2 - Chronic atrial fibrillation (5) Hypothyroidism Code(s): E03.9 - HYPOTHYROIDISM, UNSPECIFIED Status: Chronic Qualifiers: Hypothyroidism type: unspecified Qualified Code(s): E03.9 - Hypothyroidism , unspecified Comment: stable, continue synthroid (6) CKD (chronic kidney disease) stage 3, GFR 30-59 ml/min Code(s): N18.3 - CHRONIC KIDNEY DISEASE, STAGE 3 (MODERATE) Status: Chronic Comment: Avoid nephrotoxic meds and limit contrast exposure - Plan slight vol overload due to blood transfusion -: lasix total of 3 doses -: likely dc plan in am if off nasal canula -: Hb around 8g -: on prednisone 20mg, will taper over 2 weeks, BP is good now * . Review of Systems - Medications/Allergies Allergies/Adverse Reactions: Allergies Allergy/AdvReac Type Severity Reaction Status Date / Time No Known Drug Allergies Allergy Verified 12/30/17 21:12 Medications: Current Medications Hydrocodone Bitart/Acetaminophen ([place] 5/325) 1 tab PO Q6H PRN PRN Reason: Moderate Pain (4-6) Last Admin: 01/31/18 12:14 Dose: 1 tab Hydrocodone Bitart/Acetaminophen ([place] 5/325) 2 tab PO Q6H PRN PRN Reason: Severe Pain (7-10) Last Admin: 02/01/18 09:33 Dose: 2 tab Amitriptyline HCl (Elavil) 25 mg PO HS [facility] Last Admin: 01/31/18 21:18 Dose: 25 mg Aspirin (Ecotrin) 81 mg PO DAILY [facility] Last Admin: 02/01/18 08:21 Dose: 81 mg Atorvastatin Calcium (Lipitor) 80 mg PO HS [facility] Last Admin: 01/31/18 21:19 Dose: 80 mg [facility] Last Admin: 02/01/18 09:00 Dose: 1 mg Clonazepam (Klonopin) 3 mg PO HS [facility] Last Admin: 01/31/18 21:17 Dose: 3 mg Fish Oil (Fish Oil) 2,000 mg PO BID [facility] Last Admin: 02/01/18 08:21 Dose: 2,000 mg Furosemide (Lasix) 80 mg SLOW IVP 0600,1400 [facility] Furosemide (Lasix) 40 mg SLOW IVP 1115 [facility] Stop: 02/01/18 12:30 Levothyroxine Sodium (Synthroid) 100 mcg PO 0600 [facility] Last Admin: 02/01/18 05:18 Dose: 100 mcg Methylphenidate HCl (Ritalin) 20 mg PO 0800,1200 [facility] Last Admin: 02/01/18 08:21 Dose: 20 mg Ondansetron HCl (Zofran) 4 mg IVP Q6H PRN PRN Reason: Nausea/Vomiting Last Admin: 01/31/18 22:18 Dose: 4 mg Pantoprazole Sodium (Protonix) 40 mg PO DAILY [facility] Last Admin: 02/01/18 08:21 Dose: 40 mg Paroxetine HCl (Paxil) 60 mg PO DAILY [facility] Last Admin: 02/01/18 08:21 Dose: 60 mg Prednisone (Prednisone) 20 mg PO QAM-[facility] Last Admin: 02/01/18 08:21 Dose: 20 mg Sodium Chloride (Flush - Normal Saline) 10 ml IVF Q12HR [facility] Last Admin: 02/01/18 08:22 Dose: 10 ml Sodium Chloride (Flush - Normal Saline) 10 ml IVF PRN PRN PRN Reason: Saline Flush Zolpidem Tartrate (Ambien) 5 mg PO HSPRN PRN PRN Reason: .SLEEP Last Admin: 01/31/18 22:18 Dose: 5 mg
[2018-02-01] MEDS ORDERED: Furosemide 40 MG/4 ML VIAL SLOW IVP SCH ×2 (11:15→15:15)
[2018-02-01] MEDS ORDERED: Furosemide 100 MG/10 ML VIAL SLOW IVP SCH (14:00)
[2018-02-01] MEDS: Amitriptyline HCl 25 MG TAB PO SCH (19:44)
[2018-02-01] MEDS: Atorvastatin Calcium 40 MG TAB PO SCH (19:44)
[2018-02-01] MEDS: Zolpidem Tartrate 5 MG TAB PO PRN (19:48)
[2018-02-02] MEDS: HYDROcodone/Acetaminophen 5/325 mg Tablet PO PRN ×2 (02:59→08:30)
[2018-02-02] MEDS: Levothyroxine Sodium 100 MCG TAB PO SCH (05:22)
[2018-02-02] MEDS ORDERED: Furosemide 40 MG/4 ML VIAL SLOW IVP SCH ×2 (06:00→14:00)
[2018-02-02] MEDS ORDERED: predniSONE 5 MG TAB PO SCH (08:00)
[2018-02-02] MEDS: PARoxetine 20 MG TAB PO SCH (08:22)
[2018-02-02] MEDS: Aspirin 81 mg Enteric Coated Tablet PO SCH (08:22)
[2018-02-02] MEDS: Fish Oil 1,000 MG CAP PO SCH (08:22)
[2018-02-02] MEDS: clonazePAM 1 MG TAB PO SCH (08:29)
--- NOTE | 2018-02-02 12:17 | PDOC.PN ---
- Subjective Encounter Start Date: 02/02/18 Encounter Start Time: 10:15 Subjective: sob on exertion is getting better -: no chest pain or palp - Objective MAR Reviewed: Yes Vital Signs & Weight: Vital Signs (12 hours) Temp Pulse Resp BP BP Pulse Ox 02/02/18 07:15 98.9 F 73 16 91 L 02/02/18 07:12 98.9 F 73 16 155/72 H 91 L 02/02/18 05:31 96 02/02/18 04:00 98.8 F 65 16 164/78 H 96 02/02/18 01:28 90 L Weight Weight 273 lb 11.2 oz Most Recent Monitor Data Heart Rate from ECG 56 NIBP 97/45 NIBP BP-Mean 70 Respiration from ECG 12 SpO2 95 I&O: 02/01/18 02/02/18 02/03/18 06:59 06:59 06:59 Intake Total 1999 1400 Output Total 4750 Balance 1999 -3350 Result Diagrams: 02/01/18 04:10 02/02/18 03:52 Additional Labs: Accuchecks 02/02/18 02/02/18 02/01/18 11:26 06:29 20:20 POC Glucose 128 H 92 177 H 02/01/18 16:26 POC Glucose 146 H Phys Exam - Physical Examination HEENT: PERRLA, moist MMs Neck: no JVD, supple Respiratory: no wheezing, no rhonchi Cardiovascular: RRR, no significant murmur Gastrointestinal: soft, non-tender, positive bowel sounds Musculoskeletal: no edema, pulses present Neurological: non-focal, moves all 4 limbs Psychiatric: A&O x 3 Dx/Plan (1) Anemia Code(s): D64.9 - ANEMIA, UNSPECIFIED Status: Acute Qualifiers: Anemia type: unspecified type Qualified Code(s): D64.9 - Anemia, unspecified (2) Acute hypotension Code(s): I95.9 - HYPOTENSION, UNSPECIFIED Status: Resolved Comment: likely due to adrenal insuff (3) CAD (coronary artery disease) Code(s): I25.10 - ATHSCL HEART DISEASE OF [place] CORONARY ARTERY W/O ANG PCTRS Status: Chronic Qualifiers: Coronary Disease-Associated Artery/Lesion type: bypass graft [place] vs. transplanted heart: [place] heart Associated angina: without angina Qualified Code(s): I25.810 - Atherosclerosis of coronary artery bypass graft(s) without angina pectoris (4) Afib Code(s): I48.91 - UNSPECIFIED ATRIAL FIBRILLATION Status: Chronic Qualifiers: Atrial fibrillation type: chronic Qualified Code(s): I48.2 - Chronic atrial fibrillation (5) Hypothyroidism Code(s): E03.9 - HYPOTHYROIDISM, UNSPECIFIED Status: Chronic Qualifiers: Hypothyroidism type: unspecified Qualified Code(s): E03.9 - Hypothyroidism , unspecified Comment: stable, continue synthroid (6) CKD (chronic kidney disease) stage 3, GFR 30-59 ml/min Code(s): N18.3 - CHRONIC KIDNEY DISEASE, STAGE 3 (MODERATE) Status: Chronic Comment: Avoid nephrotoxic meds and limit contrast exposure (7) CHF (congestive heart failure) Code(s): I50.9 - HEART FAILURE, UNSPECIFIED Status: Acute Qualifiers: Heart failure type: systolic Heart failure chronicity: acute on chronic Qualified Code(s): I50.23 - Acute on chronic systolic (congestive) heart failure (8) Volume overload Code(s): E87.70 - FLUID OVERLOAD, UNSPECIFIED Status: Acute - Plan one more dose of lasix at 2pm -: renal function holding up, sbp are good -: on prednisone taper -: may dc home if amb spo2 is >90% -: meds reconciled and faxed to his pharmacy * . Review of Systems - Medications/Allergies Allergies/Adverse Reactions: Allergies Allergy/AdvReac Type Severity Reaction Status Date / Time No Known Drug Allergies Allergy Verified 12/30/17 21:12 Medications: Current Medications Hydrocodone Bitart/Acetaminophen ([place] 5/325) 1 tab PO Q6H PRN PRN Reason: Moderate Pain (4-6) Last Admin: 02/01/18 19:48 Dose: 1 tab Hydrocodone Bitart/Acetaminophen ([place] 5/325) 2 tab PO Q6H PRN PRN Reason: Severe Pain (7-10) Last Admin: 02/02/18 08:30 Dose: 2 tab Amitriptyline HCl (Elavil) 25 mg PO HS [facility] Last Admin: 02/01/18 19:44 Dose: 25 mg Aspirin (Ecotrin) 81 mg PO DAILY [facility] Last Admin: 02/02/18 08:22 Dose: 81 mg Atorvastatin Calcium (Lipitor) 80 mg PO HS [facility] Last Admin: 02/01/18 19:44 Dose: 80 mg Clonazepam (Klonopin) 1 mg PO QAM [facility] Last Admin: 02/02/18 08:29 Dose: 1 mg Clonazepam (Klonopin) 3 mg PO HS [facility] Last Admin: 02/01/18 19:44 Dose: 3 mg Fish Oil (Fish Oil) 2,000 mg PO BID [facility] Last Admin: 02/02/18 08:22 Dose: 2,000 mg Furosemide (Lasix) 40 mg SLOW IVP 1400 [facility] Stop: 02/02/18 16:00 Levothyroxine Sodium (Synthroid) 100 mcg PO 0600 [facility] Last Admin: 02/02/18 05:22 Dose: 100 mcg Methylphenidate HCl (Ritalin) 20 mg PO 0800,1200 [facility] Last Admin: 02/02/18 08:22 Dose: 20 mg Ondansetron HCl (Zofran) 4 mg IVP Q6H PRN PRN Reason: Nausea/Vomiting Last Admin: 01/31/18 22:18 Dose: 4 mg Pantoprazole Sodium (Protonix) 40 mg PO DAILY [facility] Last Admin: 02/02/18 08:22 Dose: 40 mg Paroxetine HCl (Paxil) 60 mg PO DAILY [facility] Last Admin: 02/02/18 08:22 Dose: 60 mg Prednisone (Prednisone) 10 mg PO QAM-WM [facility] Last Admin: 02/02/18 08:29 Dose: 10 mg Sodium Chloride (Flush - Normal Saline) 10 ml IVF Q12HR [facility] Last Admin: 02/02/18 08:30 Dose: 10 ml Sodium Chloride (Flush - Normal Saline) 10 ml IVF PRN PRN PRN Reason: Saline Flush Zolpidem Tartrate (Ambien) 5 mg PO HSPRN PRN PRN Reason: .SLEEP Last Admin: 02/01/18 19:48 Dose: 5 mg
[2018-02-02 15:49] VITALS: BP 156/70; TEMP 99.1
--- NOTE | 2018-02-02 23:46 | DIS ---
DATE OF ADMISSION: 01/25/2018 DATE OF DISCHARGE: 02/02/2018 DISCHARGE DISPOSITION: To home. PRIMARY DISCHARGE DIAGNOSES: Hypotension due to adrenal insufficiency, resolving; volume overload with history of congestive heart failure and systolic dysfunction with ejection fraction of around 30%, recent coronary artery bypass grafting ; acute on chronic anemia; paroxysmal atrial fibrillation and currently in sinus rhythm; chronic kidney disease, stage 3; hypothyroidism; attention deficit disorder. PROCEDURES DONE DURING HOSPITALIZATION: The patient had a chest x-ray on the day of admission, which showed chronic changes in the lung. No consolidation or mass. Echo with 2D Doppler showed EF of 35%-40%, [id number] tricuspid regurgitation. Discharge H&H 8 and 24, platelet count of 110. His hemoglobin had dropped down to 7.6 and hematocrit of 22. Discharge creatinine is 1.58. Serum iron 32, ferritin 223. Cortisol levels were 3.30 mcg per deciliter done at 10:20 a.m. on 01/26/2018. Procalcitonin levels were 0.49. DISCHARGE MEDICATIONS: Prednisone 10 mg p.o. daily for 3 days, then half daily for another 4 days, and to discontinue after that; aspirin 81 mg p.o. daily; Lipitor 80 mg p.o. at bedtime; Coreg 6.25 mg p.o. twice daily; clonazepam 3 mg p.o. at bedtime and 1 mg p.o. q.a.m.; Ritalin 20 mg p.o. at 8:00 a.m. and 12:00 noon; levothyroxine 100 mcg p.o. q.a.m.; Lasix 20 mg daily; ferrous sulfate 325 mg p.o. twice daily; enalapril 2.5 mg p.o. daily; paroxetine 60 mg p.o. daily; Protonix 40 mg p.o. daily; ferrous sulfate 325 mg twice daily; Lyrica 50 mg p.o. twice daily. ALLERGIES: No known drug allergies. INPATIENT CONSULT: Dr. Marie for Pulmonary and Critical Care. DISCHARGE PLAN: The patient is to follow up with primary care physician in 1 week. He also needs to check his blood pressure and pulse twice daily and record to follow up with primary care physician. BRIEF COURSE DURING HOSPITALIZATION: The patient initially came to ER with c/o right ankle pain on the . On arrival, he was found to be hypotensive and was given 3 liters of normal saline boluses in the ER. He was subsequently admitted to ICU and was started on pressors. Subsequently, the patient has had his cortisol levels checked and it was low. He was placed on hydrocortisone for nearly 4 days to get his blood pressure stable. The patient also received 2 units of packed cell in view of exertional dyspnea and hypotension with hematocrit dropping down to 21 with recent bypass and him being on aspirin and Eliquis. His Eliquis was held. The patient's heart rate was in the 50s and his amiodarone was discontinued as well. All through his stay, he was in sinus rhythm. Post-transfusion, the patient had volume overload and has been diuresed gently. His renal function is holding up. His blood pressures have been stable with discharge blood pressure of 156/70. His medications were optimized. The patient was restarted on his Ritalin. He was switched over to prednisone, is on tapering, and needs to continue for another 7 days and discontinue as prescribed. All of his medications were renally dosed and new prescriptions have been sent to his pharmacy. He needs followup with Dr. Rojas, his cardiothoracic surgeon; Cardiology as advised from prior appointments; and primary care physician in 1 week. A total of 35 minutes was spent on discharge plan. Please see a [id number] documentation on [facility] for the day of discharge. [facility]
== END 2018-02-02 17:16 | disposition home or self-care (01) | DRG 314 ==
LOC: ERS 20:32 → CCU 01-25 06:21 → 2NO 01-27 16:40
PROVIDERS: ADMIT Internal Medicine; ATTEND Internal Medicine
PROC: 3E033XZ Introduction of Vasopressor into Peripheral Vein, Percutaneous Approach (ICD-10-PCS; 2018-01-24)
PROC: 02HV33Z Insertion of Infusion Device into Superior Vena Cava, Percutaneous Approach (ICD-10-PCS; principal; 2018-01-25)
PROC: 3E063XZ Introduction of Vasopressor into Central Artery, Percutaneous Approach (ICD-10-PCS; 2018-01-25)
PROC: 30233N1 Transfusion of Nonautologous Red Blood Cells into Peripheral Vein, Percutaneous Approach (ICD-10-PCS; 2018-01-31)
DX: I95.89 Other hypotension (principal); J96.01 Acute respiratory failure with hypoxia; I50.23 Acute on chronic systolic (congestive) heart failure; E27.40 Unspecified adrenocortical insufficiency; I13.0 Hypertensive heart and chronic kidney disease with heart failure and stage 1 through stage 4 chronic kidney disease, or unspecified chronic kidney disease; N17.9 Acute kidney failure, unspecified; R57.9 Shock, unspecified; E86.9 Volume depletion, unspecified; E87.6 Hypokalemia; I25.10 Atherosclerotic heart disease of native coronary artery without angina pectoris; S93.401A Sprain of unspecified ligament of right ankle, initial encounter; W19.XXXA Unspecified fall, initial encounter; Y92.9 Unspecified place or not applicable; I48.0 Paroxysmal atrial fibrillation; D63.1 Anemia in chronic kidney disease; R53.82 Chronic fatigue, unspecified; I07.1 Rheumatic tricuspid insufficiency; F98.8 Other specified behavioral and emotional disorders with onset usually occurring in childhood and adolescence; F41.9 Anxiety disorder, unspecified; F32.9 Major depressive disorder, single episode, unspecified; N18.3 Chronic kidney disease, stage 3 (moderate); E11.22 Type 2 diabetes mellitus with diabetic chronic kidney disease; E87.71 Transfusion associated circulatory overload; E03.9 Hypothyroidism, unspecified; M79.7 Fibromyalgia; Z95.1 Presence of aortocoronary bypass graft; Z95.5 Presence of coronary angioplasty implant and graft; Z87.19 Personal history of other diseases of the digestive system; Z87.81 Personal history of (healed) traumatic fracture; Z79.899 Other long term (current) drug therapy; Z79.01 Long term (current) use of anticoagulants; Z79.82 Long term (current) use of aspirin; Z87.11 Personal history of peptic ulcer disease; Z86.19 Personal history of other infectious and parasitic diseases; Z87.39 Personal history of other diseases of the musculoskeletal system and connective tissue; Z80.8 Family history of malignant neoplasm of other organs or systems
CPT/HCPCS: 36415; 36416; 36430; 36556; 71045; 80048; 81001; 82533; 82565; 82607; 82728; 82746; 83540; 83550; 84145; 84484; 85014; 85018; 85025; 85049; 86850; 86900; 86901; 93005; 93306; 96365; 96366; 96375; A4216; C9113; G8978-GP-CL; G8979-GP-CJ; J1100; J1265; J1720; J1885; J1940; J2405; J2765; J7050; J7506; P9016; P9045; P9047; Q0162

== ENCOUNTER 2023-03-02 13:57 | Inpatient (IN) | payer MEDICARE ==
[2023-03-02] MEDS ORDERED: Dextrose 5% in Water 1,000 ML IV PRN (15:34)
[2023-03-02] MEDS ORDERED: HumaLOG 300 UNITS/3 ML VIAL SC PRN (15:34)
[2023-03-02] MEDS ORDERED: Glucagon 1 MG/ML KIT IM PRN (15:34)
[2023-03-02] MEDS ORDERED: Dextrose 50% Abboject 50 ML SYRINGE SLOW IVP PRN (15:34)
[2023-03-02 15:54] VITALS: BMI 29.5
[2023-03-02] MEDS: cefTRIAXone\\ROCEPHIN 1 GM in Sodium Chloride 0.9% 100 ML IVPB SCH (16:01)
[2023-03-02] MEDS: Sodium Chloride 0.9% 1,000 ML IV SCH (16:02)
[2023-03-02 16:48] LABS: Troponin I 0.052 ng/mL (< 0.028)
[2023-03-02 19:07] LABS: Troponin I 0.065 ng/mL (< 0.028)
[2023-03-02] MEDS: Mupirocin 2% Ointment 22 GM Tube TOP SCH (21:18)
[2023-03-02] MEDS: Heparin 5,000 UNITS/ML VIAL SC SCH (21:18)
[2023-03-02] MEDS: Famotidine 20 MG TAB PO SCH (21:18)
[2023-03-03] MEDS: Sodium Chloride 0.9% 1,000 ML IV SCH ×3 (00:15→21:21)
[2023-03-03 02:31] LABS: Bacteria/HPF None Seen HPF (None Seen); Bilirubin Negative (Negative); Blood, Urine 2+ (Negative); Clarity Clear (Clear); Glucose, Urine (Dipstick) Normal (Negative); Ketone, Urine Negative (Negative); Leukocyte Negative Leu/uL (Negative); Nitrite Negative (Negative); Protein, Urine (Dipstick) 20 mg/dL (Neg-Trace); RBC/HPF 0-3 HPF (0-3); Specific Gravity, Urine 1.017 (1.002-1.036); Squamous Epithelial None Seen HPF (0-3); Urobilinogen Normal mg/dL (Less than 2); WBC/HPF 0-3 HPF (0-3); pH, Urine 5.5 (5.0-9.0)
[2023-03-03 02:38] LABS: Amphetamine Detected (NotDetected); Barbiturates Screen Not Detected (NotDetected); Benzodiazepine Screen Not Detected (NotDetected); Cocaine Metabolite Screen Not Detected (NotDetected); Methadone Not Detected (NotDetected); Methamphetamine Detected (NotDetected); Opiate Screen Not Detected (NotDetected); Oxycodone Screen Not Detected (NotDetected); Phencyclidine (PCP) Not Detected (NotDetected); THC/Cannabinoid Screen Not Detected (NotDetected); Tricyclic Screen Not Detected (NotDetected)
[2023-03-03] MEDS: HYDROcodone/Acetaminophen 5/325 mg Tablet PO PRN ×3 (03:14→21:21)
[2023-03-03 05:26] LABS: Hematocrit 35.9 % (42.0-52.0); Hemoglobin 12.2 g/dL (14.0-18.0); Mean Corpuscular Hemoglobin 31.3 pg (27.0-31.0); Mean Corpuscular Volume 92.1 fl (78.0-98.0); RBC Distribution Width 15.6 % (11.5-14.5); White Blood Cell (WBC) Count 9.3 10x3/uL (4.8-10.8)
[2023-03-03 05:45] LABS: Delete Auto Diff?? YES; Manual Diff?? YES; Platelet Count 116 10x3/uL (130-400)
[2023-03-03 05:59] LABS: Anion Gap 15 mmol/L (10-20); BUN (Urea Nitrogen) 73 mg/dL (8.4-25.7); Calc. Creatinine Clearance 35 mL/min (70-130); Carbon Dioxide 19 mmol/L (23-31); Chloride 104 mmol/L (98-107); Estimated GFR 19; Glucose 107 mg/dL (80-115); Potassium 3.7 mmol/L (3.5-5.1); Sodium 134 mmol/L (136-145)
[2023-03-03 06:11] LABS: CK (CPK) 6655 U/L (30-200)
[2023-03-03 06:25] LABS: Anisocytosis SLIGHT = 6-15 cells HPF (0-5); Band 4 % (5-11); Burr Cells SLIGHT = 2-5 cells HPF (0-1); Eosinophils 2 % (0-10); Large Platelets 0.9 % (0-5); Lymphocytes 16 % (21-51); Macrocytosis SLIGHT = 6-15 cells HPF (0-5); Metamyelocyte 1 % (0-0); Monocytes 10 % (0-10); Neutrophil 68 % (42-75); Platelet Adequacy Comment Platelets Decreased; Reactive Lymphocytes 1 % (0-10); Total Cell Count 115
[2023-03-03] MEDS ORDERED: Tamsulosin HCl 0.4 MG CAP PO SCH (06:45)
[2023-03-03] MEDS: PARoxetine 20 MG TAB PO SCH (08:48)
[2023-03-03] MEDS: Pregabalin 50 MG CAP PO SCH ×2 (08:49→21:17)
[2023-03-03] MEDS: Famotidine 20 MG TAB PO SCH (08:49)
[2023-03-03] MEDS: Aspirin 81 mg Enteric Coated Tablet PO SCH (08:49)
[2023-03-03] MEDS: Mupirocin 2% Ointment 22 GM Tube TOP SCH ×3 (08:51→21:17)
[2023-03-03] MEDS: Heparin 5,000 UNITS/ML VIAL SC SCH ×2 (08:52→21:17)
[2023-03-03] MEDS: Fish Oil 1,000 MG CAP PO SCH ×2 (08:54→21:17)
[2023-03-03] MEDS ORDERED: clonazePAM 1 MG TAB PO SCH ×2 (09:00→21:00)
[2023-03-03] MEDS ORDERED: Sodium Bicarbonate Tab 325 MG TAB PO SCH (11:30)
[2023-03-03] MEDS: cefTRIAXone\\ROCEPHIN 1 GM in Sodium Chloride 0.9% 100 ML IVPB SCH (15:03)
[2023-03-03] MEDS ORDERED: Atorvastatin Calcium 40 MG TAB PO SCH (21:00)
[2023-03-03] MEDS: Sodium Bicarbonate Tab 325 MG TAB PO SCH (21:16)
[2023-03-04 05:39] LABS: #Eosinphils 0.3 thou/uL (0.0-0.7); #Monocytes 0.7 thou/uL (0.11-0.59); #Neutrophils 3.2 thou/uL (1.40-6.50); %Basophils 0.6 % (0.0-1.0); %Eosinophils 5.4 % (0.0-10.0); %Lymphocytes 20.2 % (21.0-51.0); %Monocytes 13.6 % (0.0-10.0); %Neutrophils 60.2 % (42.0-75.0); Hematocrit 32.1 % (42.0-52.0); Hemoglobin 10.8 g/dL (14.0-18.0); Mean Corpuscular HGB CONC 33.6 g/dL (32.0-36.0); Mean Corpuscular Hemoglobin 30.9 pg (27.0-31.0); Mean Platelet Volume 12.3 fL (7.4-10.4); RBC Distribution Width 15.5 % (11.5-14.5); Red Blood Cell (RBC) Count 3.49 mill/uL (4.70-6.10); White Blood Cell (WBC) Count 5.4 10x3/uL (4.8-10.8)
[2023-03-04 05:42] LABS: Platelet Count 86 10x3/uL (130-400)
[2023-03-04] MEDS: Levothyroxine Sodium 100 MCG TAB PO SCH (05:49)
[2023-03-04 05:58] LABS: Anion Gap 13 mmol/L (10-20); BUN (Urea Nitrogen) 58 mg/dL (8.4-25.7); CK (CPK) 3300 U/L (30-200); Calc. Creatinine Clearance 47 mL/min (70-130); Calcium 8.1 mg/dL (7.8-10.44); Carbon Dioxide 20 mmol/L (23-31); Chloride 108 mmol/L (98-107); Estimated GFR 27; Glucose 116 mg/dL (80-115); Potassium 3.7 mmol/L (3.5-5.1); Sodium 137 mmol/L (136-145)
[2023-03-04] MEDS: Heparin 5,000 UNITS/ML VIAL SC SCH ×3 (07:10→21:15)
[2023-03-04] MEDS: Sodium Chloride 0.9% 1,000 ML IV SCH ×2 (07:28→17:59)
[2023-03-04] MEDS: HYDROcodone/Acetaminophen 5/325 mg Tablet PO PRN ×3 (07:34→17:59)
[2023-03-04] MEDS: Fish Oil 1,000 MG CAP PO SCH ×2 (08:47→21:14)
[2023-03-04] MEDS: Sodium Bicarbonate Tab 325 MG TAB PO SCH ×2 (08:47→21:14)
[2023-03-04] MEDS: Famotidine 20 MG TAB PO SCH (08:48)
[2023-03-04] MEDS: Aspirin 81 mg Enteric Coated Tablet PO SCH (08:48)
[2023-03-04] MEDS: Tamsulosin HCl 0.4 MG CAP PO SCH (08:48)
[2023-03-04] MEDS: Mupirocin 2% Ointment 22 GM Tube TOP SCH ×3 (08:49→21:20)
[2023-03-04] MEDS: Pregabalin 50 MG CAP PO SCH ×2 (08:49→21:14)
[2023-03-04] MEDS: PARoxetine 20 MG TAB PO SCH (08:49)
[2023-03-04] MEDS: cefTRIAXone\\ROCEPHIN 1 GM in Sodium Chloride 0.9% 100 ML IVPB SCH (15:54)
[2023-03-04] MEDS: Carvedilol 3.125 MG TAB PO SCH (15:56)
[2023-03-04] MEDS ORDERED: Sterile Water 10 ML VIAL FS PRN ×2 (20:45→23:15)
[2023-03-04] MEDS ORDERED: OLANZapine 10 MG VIAL IM SCH (20:45)
[2023-03-04] MEDS: Bisacodyl 5 MG TAB PO PRN (21:14)
[2023-03-04] MEDS ORDERED: Ziprasidone 20 MG VIAL IM SCH (23:00)
[2023-03-05 05:52] LABS: #Eosinphils 0.2 thou/uL (0.0-0.7); #Monocytes 0.6 thou/uL (0.11-0.59); #Neutrophils 2.5 thou/uL (1.40-6.50); %Basophils 0.5 % (0.0-1.0); %Eosinophils 4.6 % (0.0-10.0); %Neutrophils 56.7 % (42.0-75.0); Hematocrit 30.1 % (42.0-52.0); Hemoglobin 10.1 g/dL (14.0-18.0); Mean Corpuscular HGB CONC 33.6 g/dL (32.0-36.0); Mean Corpuscular Hemoglobin 31.5 pg (27.0-31.0); Mean Corpuscular Volume 93.8 fl (78.0-98.0); Mean Platelet Volume 12.2 fL (7.4-10.4); RBC Distribution Width 15.4 % (11.5-14.5); Red Blood Cell (RBC) Count 3.21 mill/uL (4.70-6.10); White Blood Cell (WBC) Count 4.4 10x3/uL (4.8-10.8)
[2023-03-05] MEDS: Sodium Chloride 0.9% 1,000 ML IV SCH ×2 (05:58→15:00)
[2023-03-05] MEDS: Levothyroxine Sodium 100 MCG TAB PO SCH (05:58)
[2023-03-05 06:03] LABS: Platelet Count 84 10x3/uL (130-400)
[2023-03-05 06:15] LABS: Anion Gap 10 mmol/L (10-20); BUN (Urea Nitrogen) 38 mg/dL (8.4-25.7); CK (CPK) 1866 U/L (30-200); Calc. Creatinine Clearance 64 mL/min (70-130); Calcium 8.2 mg/dL (7.8-10.44); Carbon Dioxide 22 mmol/L (23-31); Chloride 110 mmol/L (98-107); Estimated GFR 39; Glucose 94 mg/dL (80-115); Potassium 3.8 mmol/L (3.5-5.1); Sodium 138 mmol/L (136-145)
[2023-03-05] MEDS: Mupirocin 2% Ointment 22 GM Tube TOP SCH ×3 (10:08→21:32)
[2023-03-05] MEDS: PARoxetine 20 MG TAB PO SCH (10:09)
[2023-03-05] MEDS: Sodium Bicarbonate Tab 325 MG TAB PO SCH (10:09)
[2023-03-05] MEDS: Fish Oil 1,000 MG CAP PO SCH ×2 (10:10→21:31)
[2023-03-05] MEDS: Aspirin 81 mg Enteric Coated Tablet PO SCH (10:10)
[2023-03-05] MEDS: Carvedilol 3.125 MG TAB PO SCH ×2 (10:10→17:27)
[2023-03-05] MEDS: Pregabalin 50 MG CAP PO SCH ×2 (10:10→21:31)
[2023-03-05] MEDS: Famotidine 20 MG TAB PO SCH (10:11)
[2023-03-05] MEDS: Heparin 5,000 UNITS/ML VIAL SC SCH ×2 (10:11→21:32)
[2023-03-05] MEDS: Tamsulosin HCl 0.4 MG CAP PO SCH (10:11)
[2023-03-05] MEDS: cefTRIAXone\\ROCEPHIN 1 GM in Sodium Chloride 0.9% 100 ML IVPB SCH (15:00)
[2023-03-05] MEDS: HYDROcodone/Acetaminophen 5/325 mg Tablet PO PRN ×2 (17:26→21:30)
[2023-03-05] MEDS: Bisacodyl 5 MG TAB PO PRN (21:31)
[2023-03-06] MEDS: Sodium Chloride 0.9% 1,000 ML IV SCH ×2 (03:21→12:32)
[2023-03-06] MEDS: Levothyroxine Sodium 100 MCG TAB PO SCH (06:02)
[2023-03-06] MEDS: HYDROcodone/Acetaminophen 5/325 mg Tablet PO PRN ×3 (06:02→20:56)
[2023-03-06 08:09] LABS: #Eosinphils 0.1 thou/uL (0.0-0.7); %Basophils 0.3 % (0.0-1.0); %Eosinophils 1.3 % (0.0-10.0); %Lymphocytes 9.1 % (21.0-51.0); %Monocytes 12.9 % (0.0-10.0); %Neutrophils 76.1 % (42.0-75.0); Hematocrit 29.5 % (42.0-52.0); Hemoglobin 9.8 g/dL (14.0-18.0); Mean Corpuscular HGB CONC 33.2 g/dL (32.0-36.0); Mean Corpuscular Volume 93.4 fl (78.0-98.0); Mean Platelet Volume 11.5 fL (7.4-10.4); Platelet Count 92 10x3/uL (130-400); RBC Distribution Width 15.5 % (11.5-14.5); Red Blood Cell (RBC) Count 3.16 mill/uL (4.70-6.10); White Blood Cell (WBC) Count 7.9 10x3/uL (4.8-10.8)
[2023-03-06 08:35] LABS: ALT (SGPT) 29 U/L (8-55); AST (SGOT) 52 U/L (5-34); Albumin 2.9 g/dL (3.4-4.8); Alkaline Phosphatase 65 U/L (40-110); Anion Gap 9 mmol/L (10-20); BUN (Urea Nitrogen) 27 mg/dL (8.4-25.7); Calc. Creatinine Clearance 73 mL/min (70-130); Calcium 8.2 mg/dL (7.8-10.44); Carbon Dioxide 21 mmol/L (23-31); Cardiac Risk 5.3 (Less than 4.5); Chloride 112 mmol/L (98-107); Cholesterol 85 mg/dl (< 200 Desired); Estimated GFR 46; Globulin 2.7 g/dL (2.4-3.5); Glucose 104 mg/dL (80-115); HDL Cholesterol 16 mg/dL (>60 Neg Risk); LDL Cholesterol, Calculated 56 mg/dL; Potassium 3.6 mmol/L (3.5-5.1); Protein, Total 5.6 g/dL (5.8-8.1); Sodium 138 mmol/L (136-145); Triglycerides 64 mg/dL (Less than 150)
[2023-03-06] MEDS: Aspirin 81 mg Enteric Coated Tablet PO SCH (09:46)
[2023-03-06] MEDS: Tamsulosin HCl 0.4 MG CAP PO SCH (09:46)
[2023-03-06] MEDS: Fish Oil 1,000 MG CAP PO SCH ×2 (09:46→20:57)
[2023-03-06] MEDS: Carvedilol 3.125 MG TAB PO SCH ×2 (09:47→17:06)
[2023-03-06] MEDS: Mupirocin 2% Ointment 22 GM Tube TOP SCH ×3 (09:47→20:58)
[2023-03-06] MEDS: Famotidine 20 MG TAB PO SCH (09:47)
[2023-03-06] MEDS: Pregabalin 50 MG CAP PO SCH ×2 (09:47→20:57)
[2023-03-06] MEDS: PARoxetine 20 MG TAB PO SCH (09:47)
[2023-03-06] MEDS: Heparin 5,000 UNITS/ML VIAL SC SCH (09:48)
[2023-03-06] MEDS ORDERED: VANCOMYCIN 2 GRAM/500 ML BAG 2 GM in Premix Bag 1 BAG IVPB SCH (12:15)
[2023-03-06] MEDS ORDERED: Vancomycin HCl 750 MG in Sodium Chloride 0.9% 250 ML 250 ML IVPB SCH (13:00)
[2023-03-06] MEDS: Ondansetron PF 4 MG/2 ML Vial IVP PRN ×2 (14:50→21:00)
[2023-03-06] MEDS: cefTRIAXone\\ROCEPHIN 1 GM in Sodium Chloride 0.9% 100 ML IVPB SCH (17:05)
[2023-03-06] MEDS ORDERED: Vancomycin 1 GM in Premix Bag 1 BAG IVPB SCH (21:00)
[2023-03-07] MEDS: Sodium Chloride 0.9% 1,000 ML IV SCH ×2 (00:03→08:44)
[2023-03-07] MEDS: Vancomycin HCl 750 MG in Sodium Chloride 0.9% 250 ML 250 ML IVPB SCH ×2 (00:03→12:20)
[2023-03-07] MEDS: Levothyroxine Sodium 100 MCG TAB PO SCH (05:38)
[2023-03-07] MEDS: HYDROcodone/Acetaminophen 5/325 mg Tablet PO PRN ×3 (05:46→18:28)
[2023-03-07] MEDS: Ondansetron PF 4 MG/2 ML Vial IVP PRN ×3 (05:47→18:28)
[2023-03-07] MEDS: Tamsulosin HCl 0.4 MG CAP PO SCH (08:45)
[2023-03-07] MEDS: Aspirin 81 mg Enteric Coated Tablet PO SCH (08:45)
[2023-03-07] MEDS: Famotidine 20 MG TAB PO SCH (08:45)
[2023-03-07] MEDS: Pregabalin 50 MG CAP PO SCH ×2 (08:45→20:48)
[2023-03-07] MEDS: Fish Oil 1,000 MG CAP PO SCH ×2 (08:45→20:48)
[2023-03-07] MEDS: PARoxetine 20 MG TAB PO SCH (08:45)
[2023-03-07] MEDS: Carvedilol 3.125 MG TAB PO SCH ×2 (08:46→16:15)
[2023-03-07] MEDS: Mupirocin 2% Ointment 22 GM Tube TOP SCH ×3 (08:52→20:48)
[2023-03-07] MEDS: cefTRIAXone\\ROCEPHIN 1 GM in Sodium Chloride 0.9% 100 ML IVPB SCH (16:16)
[2023-03-08 00:11] LABS: Vancomycin, Trough 11.3 ug/mL
[2023-03-08] MEDS: Vancomycin HCl 750 MG in Sodium Chloride 0.9% 250 ML 250 ML IVPB SCH ×2 (01:33→12:34)
[2023-03-08] MEDS: HYDROcodone/Acetaminophen 5/325 mg Tablet PO PRN ×4 (03:31→17:11)
[2023-03-08] MEDS: Levothyroxine Sodium 100 MCG TAB PO SCH (06:32)
[2023-03-08] MEDS: Fish Oil 1,000 MG CAP PO SCH ×2 (08:47→21:14)
[2023-03-08] MEDS: Famotidine 20 MG TAB PO SCH (08:47)
[2023-03-08] MEDS: PARoxetine 20 MG TAB PO SCH (08:47)
[2023-03-08] MEDS: Aspirin 81 mg Enteric Coated Tablet PO SCH (08:48)
[2023-03-08] MEDS: Pregabalin 50 MG CAP PO SCH ×2 (08:48→21:14)
[2023-03-08] MEDS: Tamsulosin HCl 0.4 MG CAP PO SCH (08:48)
[2023-03-08] MEDS: Carvedilol 3.125 MG TAB PO SCH ×2 (08:48→16:01)
[2023-03-08] MEDS: Bisacodyl 5 MG TAB PO PRN (08:57)
[2023-03-08] MEDS: cefTRIAXone\\ROCEPHIN 1 GM in Sodium Chloride 0.9% 100 ML IVPB SCH (15:56)
[2023-03-08] MEDS: Acetaminophen 325 MG TAB PO PRN (21:15)
[2023-03-09] MEDS: Vancomycin HCl 750 MG in Sodium Chloride 0.9% 250 ML 250 ML IVPB SCH ×2 (00:17→13:18)
[2023-03-09] MEDS: Levothyroxine Sodium 100 MCG TAB PO SCH (06:13)
[2023-03-09 09:53] LABS: #Eosinphils 0.2 thou/uL (0.0-0.7); #Monocytes 0.7 thou/uL (0.11-0.59); #Neutrophils 5.1 thou/uL (1.40-6.50); %Basophils 0.2 % (0.0-1.0); %Eosinophils 3.5 % (0.0-10.0); %Lymphocytes 7.9 % (21.0-51.0); %Monocytes 10.9 % (0.0-10.0); Hematocrit 28.3 % (42.0-52.0); Hemoglobin 9.6 g/dL (14.0-18.0); Mean Corpuscular HGB CONC 33.9 g/dL (32.0-36.0); Mean Corpuscular Hemoglobin 31.2 pg (27.0-31.0); Mean Corpuscular Volume 91.9 fl (78.0-98.0); Mean Platelet Volume 11.3 fL (7.4-10.4); Platelet Count 122 10x3/uL (130-400); Red Blood Cell (RBC) Count 3.08 mill/uL (4.70-6.10); White Blood Cell (WBC) Count 6.6 10x3/uL (4.8-10.8)
[2023-03-09] MEDS: Famotidine 20 MG TAB PO SCH ×2 (10:04→19:44)
[2023-03-09] MEDS: Pregabalin 50 MG CAP PO SCH ×2 (10:04→19:45)
[2023-03-09] MEDS: Tamsulosin HCl 0.4 MG CAP PO SCH (10:04)
[2023-03-09] MEDS: Fish Oil 1,000 MG CAP PO SCH ×2 (10:04→19:44)
[2023-03-09] MEDS: Aspirin 81 mg Enteric Coated Tablet PO SCH (10:04)
[2023-03-09] MEDS: Carvedilol 3.125 MG TAB PO SCH ×2 (10:05→16:23)
[2023-03-09] MEDS: PARoxetine 20 MG TAB PO SCH (10:05)
[2023-03-09] MEDS: HYDROcodone/Acetaminophen 5/325 mg Tablet PO PRN ×2 (10:06→19:44)
[2023-03-09 10:49] LABS: Anion Gap 10 mmol/L (10-20); BUN (Urea Nitrogen) 15 mg/dL (8.4-25.7); Calc. Creatinine Clearance 89 mL/min (70-130); Calcium 8.6 mg/dL (7.8-10.44); Carbon Dioxide 22 mmol/L (23-31); Chloride 109 mmol/L (98-107); Estimated GFR 59; Glucose 99 mg/dL (80-115); Potassium 3.5 mmol/L (3.5-5.1); Sodium 137 mmol/L (136-145)
[2023-03-09 12:33] LABS: Vancomycin, Trough 9.6 ug/mL
[2023-03-09] MEDS: Vancomycin 1 GM in Premix Bag 1 BAG IVPB SCH (14:02)
[2023-03-09] MEDS: Morphine 2 MG/ML VIAL SLOW IVP PRN (16:23)
[2023-03-09] MEDS: cefTRIAXone\\ROCEPHIN 1 GM in Sodium Chloride 0.9% 100 ML IVPB SCH (16:23)
[2023-03-09] MEDS: Ondansetron PF 4 MG/2 ML Vial IVP PRN (17:46)
[2023-03-09] MEDS ORDERED: Lidocaine 1% (PF) 30 ML VIAL ONE (18:12)
[2023-03-09] MEDS ORDERED: Lidocaine 2% PF 100 mg/5 ml Syringe ONE (18:12)
[2023-03-10] MEDS: Vancomycin 1 GM in Premix Bag 1 BAG IVPB SCH ×2 (01:50→14:31)
[2023-03-10] MEDS: HYDROcodone/Acetaminophen 5/325 mg Tablet PO PRN ×3 (02:55→13:05)
[2023-03-10] MEDS: Levothyroxine Sodium 100 MCG TAB PO SCH (04:56)
[2023-03-10 06:43] LABS: #Eosinphils 0.2 thou/uL (0.0-0.7); #Monocytes 0.9 thou/uL (0.11-0.59); #Neutrophils 4.9 thou/uL (1.40-6.50); %Basophils 0.3 % (0.0-1.0); %Eosinophils 2.7 % (0.0-10.0); %Lymphocytes 10.4 % (21.0-51.0); %Monocytes 13.4 % (0.0-10.0); %Neutrophils 72.6 % (42.0-75.0); Hematocrit 27.2 % (42.0-52.0); Hemoglobin 9.5 g/dL (14.0-18.0); Mean Corpuscular HGB CONC 34.9 g/dL (32.0-36.0); Mean Corpuscular Hemoglobin 31.7 pg (27.0-31.0); Mean Corpuscular Volume 90.7 fl (78.0-98.0); Mean Platelet Volume 10.9 fL (7.4-10.4); RBC Distribution Width 14.8 % (11.5-14.5); White Blood Cell (WBC) Count 6.7 10x3/uL (4.8-10.8)
[2023-03-10 06:46] LABS: Platelet Count 130 10x3/uL (130-400)
[2023-03-10 06:55] LABS: ALT (SGPT) 21 U/L (8-55); AST (SGOT) 25 U/L (5-34); Albumin 2.8 g/dL (3.4-4.8); Alkaline Phosphatase 69 U/L (40-110); Anion Gap 12 mmol/L (10-20); BUN (Urea Nitrogen) 16 mg/dL (8.4-25.7); Bilirubin, Total 0.6 mg/dL (0.2-1.2); CK (CPK) 117 U/L (30-200); Calc. Creatinine Clearance 85 mL/min (70-130); Calcium 8.4 mg/dL (7.8-10.44); Carbon Dioxide 22 mmol/L (23-31); Chloride 107 mmol/L (98-107); Estimated GFR 56; Globulin 2.9 g/dL (2.4-3.5); Glucose 104 mg/dL (80-115); Magnesium 1.7 mg/dL (1.6-2.6); Potassium 3.5 mmol/L (3.5-5.1); Protein, Total 5.7 g/dL (5.8-8.1); Sodium 137 mmol/L (136-145)
[2023-03-10] MEDS: PARoxetine 20 MG TAB PO SCH (09:13)
[2023-03-10] MEDS: Fish Oil 1,000 MG CAP PO SCH ×2 (09:13→20:01)
[2023-03-10] MEDS: Tamsulosin HCl 0.4 MG CAP PO SCH (09:14)
[2023-03-10] MEDS: Pregabalin 50 MG CAP PO SCH ×2 (09:14→19:58)
[2023-03-10] MEDS: Aspirin 81 mg Enteric Coated Tablet PO SCH (09:15)
[2023-03-10] MEDS: Carvedilol 3.125 MG TAB PO SCH ×2 (09:16→16:20)
[2023-03-10] MEDS: Famotidine 20 MG TAB PO SCH ×2 (09:16→20:03)
[2023-03-10] MEDS: Ondansetron PF 4 MG/2 ML Vial IVP PRN ×2 (09:18→18:42)
[2023-03-10] MEDS: Morphine 2 MG/ML VIAL SLOW IVP PRN ×2 (09:51→14:30)
[2023-03-10] MEDS: cefTRIAXone\\ROCEPHIN 1 GM in Sodium Chloride 0.9% 100 ML IVPB SCH (16:19)
[2023-03-10] MEDS: Acetaminophen 325 MG TAB PO PRN (19:58)
[2023-03-10] MEDS: Promethazine HCl 12.5 MG in Sodium Chloride 0.9% 50 ML IVPB PRN (20:01)
[2023-03-11 01:38] LABS: Vancomycin, Trough 17.3 ug/mL
[2023-03-11] MEDS: Vancomycin 1 GM in Premix Bag 1 BAG IVPB SCH ×2 (01:55→15:35)
[2023-03-11] MEDS: Levothyroxine Sodium 100 MCG TAB PO SCH (05:08)
[2023-03-11] MEDS: Acetaminophen 325 MG TAB PO PRN ×2 (05:09→23:35)
[2023-03-11] MEDS: Morphine 2 MG/ML VIAL SLOW IVP PRN ×3 (05:14→23:28)
[2023-03-11] MEDS: Ondansetron PF 4 MG/2 ML Vial IVP PRN ×2 (05:14→19:30)
[2023-03-11 05:46] LABS: #Eosinphils 0.2 thou/uL (0.0-0.7); #Neutrophils 5.7 thou/uL (1.40-6.50); %Basophils 0.3 % (0.0-1.0); %Eosinophils 2.4 % (0.0-10.0); %Lymphocytes 10.6 % (21.0-51.0); %Monocytes 13.3 % (0.0-10.0); %Neutrophils 73.1 % (42.0-75.0); Hematocrit 27.5 % (42.0-52.0); Hemoglobin 9.3 g/dL (14.0-18.0); Mean Corpuscular HGB CONC 33.8 g/dL (32.0-36.0); Mean Corpuscular Hemoglobin 30.9 pg (27.0-31.0); Mean Corpuscular Volume 91.4 fl (78.0-98.0); Mean Platelet Volume 10.3 fL (7.4-10.4); Platelet Count 148 10x3/uL (130-400); RBC Distribution Width 14.6 % (11.5-14.5); Red Blood Cell (RBC) Count 3.01 mill/uL (4.70-6.10); White Blood Cell (WBC) Count 7.8 10x3/uL (4.8-10.8)
[2023-03-11 06:06] LABS: ALT (SGPT) 20 U/L (8-55); AST (SGOT) 23 U/L (5-34); Albumin 2.9 g/dL (3.4-4.8); Alkaline Phosphatase 68 U/L (40-110); Anion Gap 12 mmol/L (10-20); BUN (Urea Nitrogen) 15 mg/dL (8.4-25.7); Bilirubin, Total 0.6 mg/dL (0.2-1.2); Calc. Creatinine Clearance 88 mL/min (70-130); Calcium 8.2 mg/dL (7.8-10.44); Carbon Dioxide 22 mmol/L (23-31); Chloride 103 mmol/L (98-107); Estimated GFR 58; Globulin 2.8 g/dL (2.4-3.5); Glucose 109 mg/dL (80-115); Magnesium 1.7 mg/dL (1.6-2.6); Potassium 3.4 mmol/L (3.5-5.1); Protein, Total 5.7 g/dL (5.8-8.1); Sodium 134 mmol/L (136-145)
[2023-03-11] MEDS ORDERED: Electrolyte Replacement Protocol FS PRN (09:00)
[2023-03-11] MEDS ORDERED: Electrolyte Replacement Protocol 1 EACH FS SCH (09:00)
[2023-03-11] MEDS ORDERED: Potassium Chloride 20 MEQ TAB PO SCH (09:00)
[2023-03-11] MEDS: Aspirin 81 mg Enteric Coated Tablet PO SCH (10:08)
[2023-03-11] MEDS: Famotidine 20 MG TAB PO SCH ×2 (10:08→20:34)
[2023-03-11] MEDS: PARoxetine 20 MG TAB PO SCH (10:08)
[2023-03-11] MEDS: Fish Oil 1,000 MG CAP PO SCH ×2 (10:08→20:33)
[2023-03-11] MEDS: Carvedilol 3.125 MG TAB PO SCH ×2 (10:08→15:34)
[2023-03-11] MEDS: Pregabalin 50 MG CAP PO SCH ×2 (10:09→20:33)
[2023-03-11] MEDS: Tamsulosin HCl 0.4 MG CAP PO SCH (10:09)
[2023-03-11] MEDS ORDERED: Magnesium 2 GM/50 ML(in water) 2 GM in Premix Bag 1 BAG IVPB SCH (11:00)
[2023-03-11] MEDS: HYDROcodone/Acetaminophen 5/325 mg Tablet PO PRN (15:34)
[2023-03-11] MEDS: cefTRIAXone\\ROCEPHIN 1 GM in Sodium Chloride 0.9% 100 ML IVPB SCH (15:35)
[2023-03-11] MEDS: Promethazine HCl 12.5 MG in Sodium Chloride 0.9% 50 ML IVPB PRN (23:28)
[2023-03-12] MEDS: Vancomycin 1 GM in Premix Bag 1 BAG IVPB SCH ×2 (02:48→17:35)
[2023-03-12] MEDS: Levothyroxine Sodium 100 MCG TAB PO SCH (05:31)
[2023-03-12] MEDS: Ondansetron PF 4 MG/2 ML Vial IVP PRN ×3 (05:35→21:04)
[2023-03-12] MEDS: Morphine 2 MG/ML VIAL SLOW IVP PRN ×3 (05:35→21:12)
[2023-03-12 06:04] LABS: #Eosinphils 0.2 thou/uL (0.0-0.7); %Basophils 0.5 % (0.0-1.0); %Lymphocytes 8.7 % (21.0-51.0); %Monocytes 12.5 % (0.0-10.0); %Neutrophils 75.8 % (42.0-75.0); Hematocrit 27.9 % (42.0-52.0); Hemoglobin 9.7 g/dL (14.0-18.0); Mean Corpuscular HGB CONC 34.8 g/dL (32.0-36.0); Mean Corpuscular Hemoglobin 31.3 pg (27.0-31.0); Mean Platelet Volume 10.1 fL (7.4-10.4); Platelet Count 169 10x3/uL (130-400); RBC Distribution Width 14.4 % (11.5-14.5)
[2023-03-12 06:25] LABS: Anion Gap 15 mmol/L (10-20); BUN (Urea Nitrogen) 14 mg/dL (8.4-25.7); CRP (Inflammatory) 25.14 mg/dL (= or < 0.5); Calc. Creatinine Clearance 85 mL/min (70-130); Calcium 8.6 mg/dL (7.8-10.44); Carbon Dioxide 22 mmol/L (23-31); Chloride 103 mmol/L (98-107); Estimated GFR 55; Glucose 102 mg/dL (80-115); Potassium 3.6 mmol/L (3.5-5.1); Sodium 136 mmol/L (136-145)
[2023-03-12] MEDS ORDERED: Temazepam 15 MG CAP PO PRN (07:37)
[2023-03-12] MEDS: Carvedilol 3.125 MG TAB PO SCH ×2 (08:34→15:05)
[2023-03-12] MEDS: Fish Oil 1,000 MG CAP PO SCH ×2 (08:41→21:04)
[2023-03-12] MEDS: HYDROcodone/Acetaminophen 5/325 mg Tablet PO PRN (08:41)
[2023-03-12] MEDS: Pregabalin 50 MG CAP PO SCH ×2 (08:42→21:05)
[2023-03-12] MEDS: Tamsulosin HCl 0.4 MG CAP PO SCH (08:42)
[2023-03-12] MEDS: Famotidine 20 MG TAB PO SCH ×2 (08:42→21:04)
[2023-03-12] MEDS: PARoxetine 20 MG TAB PO SCH (08:42)
[2023-03-12] MEDS: Aspirin 81 mg Enteric Coated Tablet PO SCH (08:42)
[2023-03-12 14:22] LABS: Vancomycin, Trough 22.6 ug/mL
[2023-03-12] MEDS: cefTRIAXone\\ROCEPHIN 1 GM in Sodium Chloride 0.9% 100 ML IVPB SCH (15:04)
[2023-03-12] MEDS ORDERED: Vancomycin 1 GM in Premix Bag 1 BAG IVPB SCH ×2 (16:00→17:00)
[2023-03-13] MEDS: HYDROcodone/Acetaminophen 5/325 mg Tablet PO PRN ×2 (00:27→05:48)
[2023-03-13] MEDS: Levothyroxine Sodium 100 MCG TAB PO SCH (05:47)
[2023-03-13] MEDS: Ondansetron PF 4 MG/2 ML Vial IVP PRN ×3 (05:49→22:06)
[2023-03-13] MEDS: Vancomycin 1 GM in Premix Bag 1 BAG IVPB SCH ×2 (05:50→17:56)
[2023-03-13] MEDS: Fish Oil 1,000 MG CAP PO SCH ×2 (08:20→22:02)
[2023-03-13] MEDS: Carvedilol 3.125 MG TAB PO SCH ×2 (08:20→15:35)
[2023-03-13] MEDS: PARoxetine 20 MG TAB PO SCH (08:20)
[2023-03-13] MEDS: Famotidine 20 MG TAB PO SCH ×2 (08:21→22:02)
[2023-03-13] MEDS: Pregabalin 50 MG CAP PO SCH ×2 (08:21→22:03)
[2023-03-13] MEDS: Tamsulosin HCl 0.4 MG CAP PO SCH (08:21)
[2023-03-13] MEDS: Aspirin 81 mg Enteric Coated Tablet PO SCH (08:21)
[2023-03-13] MEDS: Acetaminophen 325 MG TAB PO PRN (09:16)
[2023-03-13] MEDS ORDERED: Senokot S 8.6-50 MG TAB PO SCH (09:30)
[2023-03-13] MEDS: Bisacodyl 5 MG TAB PO PRN (10:38)
[2023-03-13] MEDS: Morphine 2 MG/ML VIAL SLOW IVP PRN ×2 (15:35→22:05)
[2023-03-13] MEDS: cefTRIAXone\\ROCEPHIN 1 GM in Sodium Chloride 0.9% 100 ML IVPB SCH (15:35)
[2023-03-13] MEDS: Senokot S 8.6-50 MG TAB PO SCH (22:02)
[2023-03-14] MEDS: Vancomycin 1 GM in Premix Bag 1 BAG IVPB SCH (06:28)
[2023-03-14] MEDS: Levothyroxine Sodium 100 MCG TAB PO SCH (06:30)
[2023-03-14] MEDS: Carvedilol 3.125 MG TAB PO SCH ×2 (08:50→17:02)
[2023-03-14] MEDS: Tamsulosin HCl 0.4 MG CAP PO SCH (08:50)
[2023-03-14] MEDS: Fish Oil 1,000 MG CAP PO SCH (08:51)
[2023-03-14] MEDS: Senokot S 8.6-50 MG TAB PO SCH (08:51)
[2023-03-14] MEDS: PARoxetine 20 MG TAB PO SCH (08:51)
[2023-03-14] MEDS: Aspirin 81 mg Enteric Coated Tablet PO SCH (08:52)
[2023-03-14] MEDS: Pregabalin 50 MG CAP PO SCH (08:52)
[2023-03-14] MEDS: Famotidine 20 MG TAB PO SCH (08:52)
[2023-03-14] MEDS ORDERED: Doxycycline 100 MG CAP PO SCH (09:00)
[2023-03-14] MEDS ORDERED: Polyethylene Glycol 3350 17 GM Packet PO SCH (09:00)
[2023-03-14] MEDS: Ondansetron PF 4 MG/2 ML Vial IVP PRN (10:45)
[2023-03-14] MEDS: HYDROcodone/Acetaminophen 5/325 mg Tablet PO PRN (10:45)
[2023-03-14 16:14] VITALS: BP 165/83; TEMP 99.1
[2023-03-14] MEDS ORDERED: VANCOMYCIN 1.75 GM/500 ML BAG 1.75 GM in Premix Bag 1 BAG IVPB SCH (18:00)
== END 2023-03-14 16:45 | DRG 501 ==
LOC: 2SW 13:57 → T4-A 03-07 14:22
PROVIDERS: ADMIT Family Medicine; ATTEND Family Medicine
PROC: 0M940ZZ Drainage of Left Elbow Bursa and Ligament, Open Approach (ICD-10-PCS; principal; 2023-03-09)
DX: T79.6XXA Traumatic ischemia of muscle, initial encounter (principal); E87.20 Acidosis, unspecified; I50.22 Chronic systolic (congestive) heart failure; N17.9 Acute kidney failure, unspecified; N18.4 Chronic kidney disease, stage 4 (severe); I13.0 Hypertensive heart and chronic kidney disease with heart failure and stage 1 through stage 4 chronic kidney disease, or unspecified chronic kidney disease; I25.10 Atherosclerotic heart disease of native coronary artery without angina pectoris; E11.22 Type 2 diabetes mellitus with diabetic chronic kidney disease; E78.5 Hyperlipidemia, unspecified; Z98.890 Other specified postprocedural states; Z87.891 Personal history of nicotine dependence; Z79.82 Long term (current) use of aspirin; Z79.899 Other long term (current) drug therapy; Z95.1 Presence of aortocoronary bypass graft; E80.6 Other disorders of bilirubin metabolism; E03.9 Hypothyroidism, unspecified; G93.32 Myalgic encephalomyelitis/chronic fatigue syndrome; R33.9 Retention of urine, unspecified; R77.8 Other specified abnormalities of plasma proteins; M70.22 Olecranon bursitis, left elbow; W19.XXXA Unspecified fall, initial encounter
CPT/HCPCS: 36415; 36416; 70551; 72170; 76770; 80048; 80053; 80061; 80202; 80306; 81001; 82550; 82565; 83735; 83880; 83970; 85025; 85652; 86140; 87040; 87070; 87205; 89060; 93005; 93010; 93306; 97139; J0696; J1644; J2272; J2405; J2550; J3370; J3370-JW; J3475; J3486; J3490; J7050

== ENCOUNTER 2023-03-26 10:50 | Inpatient (IN) | payer MEDICARE ==
[2023-03-26] MEDS ORDERED: Piperacillin/Tazobactam 4.5 GM VIAL ONE (11:18)
[2023-03-26] MEDS ORDERED: Sodium Chloride 0.9% 100 ML ONE (11:18)
[2023-03-26 11:33] LABS: #Eosinphils 0.2 thou/uL (0.0-0.7); #Monocytes 1.3 thou/uL (0.11-0.59); %Basophils 0.3 % (0.0-1.0); %Eosinophils 1.9 % (0.0-10.0); %Lymphocytes 15.5 % (21.0-51.0); %Monocytes 12.8 % (0.0-10.0); %Neutrophils 69.2 % (42.0-75.0); Hematocrit 31.7 % (42.0-52.0); Hemoglobin 10.6 g/dL (14.0-18.0); Mean Corpuscular HGB CONC 33.4 g/dL (32.0-36.0); Mean Corpuscular Hemoglobin 30.1 pg (27.0-31.0); Mean Corpuscular Volume 90.1 fl (78.0-98.0); Mean Platelet Volume 10.1 fL (7.4-10.4); Platelet Count 257 10x3/uL (130-400); Red Blood Cell (RBC) Count 3.52 mill/uL (4.70-6.10); White Blood Cell (WBC) Count 10.1 10x3/uL (4.8-10.8)
[2023-03-26] MEDS ORDERED: Vancomycin 1.5 GRAM/300 ML BAG 1.5 GM in Premix Bag 1 BAG IVPB SCH (11:45)
[2023-03-26 11:59] LABS: ALT (SGPT) 36 U/L (8-55); AST (SGOT) 33 U/L (5-34); Albumin 3.1 g/dL (3.4-4.8); Alkaline Phosphatase 96 U/L (40-110); Anion Gap 14 mmol/L (10-20); BUN (Urea Nitrogen) 29 mg/dL (8.4-25.7); Bilirubin, Total 0.5 mg/dL (0.2-1.2); Calc. Creatinine Clearance 0 mL/min (70-130); Calcium 8.9 mg/dL (7.8-10.44); Carbon Dioxide 21 mmol/L (23-31); Chloride 98 mmol/L (98-107); Estimated GFR 19; Globulin 3.6 g/dL (2.4-3.5); Glucose 129 mg/dL (80-115); Potassium 4.4 mmol/L (3.5-5.1); Protein, Total 6.7 g/dL (5.8-8.1); Sodium 129 mmol/L (136-145)
[2023-03-26] MEDS ORDERED: NOREPINEPHRINE 8 MG/250 ML-D5W 250 ML ONE (12:12)
[2023-03-26 12:33] LABS: SARS-CoV-2 NAA Rapid Test Not Detected (NotDetected)
[2023-03-26] MEDS ORDERED: Atropine Sulfate 1 mg/10 ml Syringe ONE (12:52)
[2023-03-26] MEDS ORDERED: DOPamine 400 MG/D5W 250 ML 250 ML ONE (12:52)
[2023-03-26] MEDS ORDERED: Metoclopramide HCl 10 MG/2 ML VIAL ONE (13:05)
[2023-03-26] MEDS ORDERED: Magnesium 2 GM/50 ML BAG (IN WATER) ONE (13:05)
[2023-03-26] MEDS ORDERED: Ondansetron ODT 4 MG TAB PO PRN (14:25)
[2023-03-26] MEDS ORDERED: Ondansetron PF 4 MG/2 ML Vial IVP PRN (14:25)
[2023-03-26] MEDS ORDERED: NOREPINEPHRINE 8 MG/250 ML-D5W 250 ML IVPB SCH (15:45)
[2023-03-26] MEDS ORDERED: DOPamine 400 MG/D5W 250 ML 250 ML IVPB SCH (16:00)
[2023-03-26] MEDS: Sodium Chloride 0.9% 1,000 ML IV SCH (16:35)
[2023-03-26 17:07] LABS: Bacteria/HPF None Seen HPF (None Seen); Bilirubin Negative (Negative); Blood, Urine Negative (Negative); CAUTI Indications for Culture Alt mental st,lethar; Clarity Clear (Clear); Glucose, Urine (Dipstick) Normal (Negative); Ketone, Urine Negative (Negative); Leukocyte Negative Leu/uL (Negative); Nitrite Negative (Negative); Protein, Urine (Dipstick) Negative (Neg-Trace); RBC/HPF 0-3 HPF (0-3); Specific Gravity, Urine 1.007 (1.002-1.036); Squamous Epithelial 0-3 HPF (0-3); Urobilinogen Normal mg/dL (Less than 2); WBC/HPF 0-3 HPF (0-3)
[2023-03-26 17:11] LABS: Urine Culture Reflex No No
[2023-03-26 17:19] LABS: Free T4 (Free Thyroxine) 2.35 ng/dL (0.70-1.48)
[2023-03-26 17:40] LABS: Creatinine, Urine 44.48 mg/dL (63-166)
[2023-03-26 17:47] LABS: Troponin I 0.021 ng/mL (< 0.028)
[2023-03-26] MEDS: HYDROcodone/Acetaminophen 5/325 mg Tablet PO PRN (20:42)
[2023-03-26] MEDS: Heparin 5,000 UNITS/ML VIAL SC SCH (20:44)
[2023-03-26] MEDS: Famotidine/PF 20 mg/2ml Vial SLOW IVP SCH (20:44)
[2023-03-26] MEDS ORDERED: Cefepime 1 GM in Sodium Chloride 0.9% 100 ML IVPB SCH (21:00)
[2023-03-26] MEDS ORDERED: Vancomycin 1 GM in Premix Bag 1 BAG IVPB SCH (21:00)
[2023-03-27] MEDS: HYDROcodone/Acetaminophen 5/325 mg Tablet PO PRN ×4 (04:13→19:41)
[2023-03-27 05:01] LABS: ALT (SGPT) 29 U/L (8-55); AST (SGOT) 23 U/L (5-34); Albumin 3.2 g/dL (3.4-4.8); Alkaline Phosphatase 102 U/L (40-110); Anion Gap 13 mmol/L (10-20); BUN (Urea Nitrogen) 26 mg/dL (8.4-25.7); Bilirubin, Total 0.4 mg/dL (0.2-1.2); Calc. Creatinine Clearance 58 mL/min (70-130); Calcium 8.9 mg/dL (7.8-10.44); Carbon Dioxide 22 mmol/L (23-31); Chloride 103 mmol/L (98-107); Estimated GFR 24; Globulin 3.6 g/dL (2.4-3.5); Glucose 99 mg/dL (80-115); Potassium 3.9 mmol/L (3.5-5.1); Protein, Total 6.8 g/dL (5.8-8.1); Sodium 134 mmol/L (136-145)
[2023-03-27] MEDS ORDERED: Dextrose 50% Abboject 50 ML SYRINGE SLOW IVP PRN (05:23)
[2023-03-27] MEDS ORDERED: Dextrose 5% in Water 1,000 ML IV PRN (05:23)
[2023-03-27] MEDS ORDERED: HumaLOG 300 UNITS/3 ML VIAL SC PRN ×2 (05:23)
[2023-03-27] MEDS ORDERED: Glucagon 1 MG/ML KIT IM PRN (05:23)
[2023-03-27] MEDS: Heparin 5,000 UNITS/ML VIAL SC SCH ×2 (08:38→19:42)
[2023-03-27 09:03] LABS: Amphetamine Not Detected (NotDetected); Barbiturates Screen Not Detected (NotDetected); Benzodiazepine Screen Not Detected (NotDetected); Cocaine Metabolite Screen Not Detected (NotDetected); Methadone Not Detected (NotDetected); Methamphetamine Not Detected (NotDetected); Opiate Screen Detected (NotDetected); Oxycodone Screen Not Detected (NotDetected); Phencyclidine (PCP) Not Detected (NotDetected); THC/Cannabinoid Screen Not Detected (NotDetected); Tricyclic Screen Not Detected (NotDetected)
[2023-03-27 12:40] LABS: #Eosinphils 0.3 thou/uL (0.0-0.7); #Monocytes 0.9 thou/uL (0.11-0.59); #Neutrophils 6.2 thou/uL (1.40-6.50); %Basophils 0.3 % (0.0-1.0); %Lymphocytes 14.5 % (21.0-51.0); %Monocytes 10.5 % (0.0-10.0); %Neutrophils 71.4 % (42.0-75.0); Hematocrit 30.8 % (42.0-52.0); Hemoglobin 10.5 g/dL (14.0-18.0); Mean Corpuscular HGB CONC 34.1 g/dL (32.0-36.0); Mean Corpuscular Hemoglobin 30.7 pg (27.0-31.0); Mean Corpuscular Volume 90.1 fl (78.0-98.0); Mean Platelet Volume 9.9 fL (7.4-10.4); Platelet Count 223 10x3/uL (130-400); RBC Distribution Width 13.6 % (11.5-14.5); Red Blood Cell (RBC) Count 3.42 mill/uL (4.70-6.10); White Blood Cell (WBC) Count 8.6 10x3/uL (4.8-10.8)
[2023-03-27 13:09] LABS: Anion Gap 12 mmol/L (10-20); BUN (Urea Nitrogen) 24 mg/dL (8.4-25.7); Calc. Creatinine Clearance 45 mL/min (70-130); Calcium 8.8 mg/dL (7.8-10.44); Carbon Dioxide 23 mmol/L (23-31); Chloride 104 mmol/L (98-107); Estimated GFR 27; Glucose 129 mg/dL (80-115); Potassium 4.1 mmol/L (3.5-5.1); Sodium 135 mmol/L (136-145); Uric Acid 6.3 mg/dL (3.5-7.2)
[2023-03-27] MEDS: Sodium Chloride 0.9% 1,000 ML IV SCH (16:02)
[2023-03-27 16:10] LABS: Vancomycin, Random 9.3 ug/mL (See Comment)
[2023-03-27] MEDS ORDERED: VANCOMYCIN 1.25 GM/250 ML BAG 1.25 GM in Premix Bag 1 BAG IVPB SCH (16:45)
[2023-03-27] MEDS ORDERED: Vancomycin Dose by Levels Sliding Scale (Wt > 99) FS SCH (16:45)
[2023-03-27] MEDS: Famotidine/PF 20 mg/2ml Vial SLOW IVP SCH (19:40)
[2023-03-28] MEDS: Heparin 5,000 UNITS/ML VIAL SC SCH ×2 (08:24→22:04)
[2023-03-28] MEDS: HYDROcodone/Acetaminophen 5/325 mg Tablet PO PRN ×4 (08:28→22:04)
[2023-03-28] MEDS: Sodium Chloride 0.9% 1,000 ML IV SCH ×2 (08:31→13:00)
[2023-03-28 09:11] LABS: #Eosinphils 0.3 thou/uL (0.0-0.7); #Monocytes 0.8 thou/uL (0.11-0.59); #Neutrophils 5.1 thou/uL (1.40-6.50); %Basophils 0.3 % (0.0-1.0); %Eosinophils 3.7 % (0.0-10.0); %Lymphocytes 17.3 % (21.0-51.0); %Monocytes 10.2 % (0.0-10.0); %Neutrophils 68.1 % (42.0-75.0); Hematocrit 30.9 % (42.0-52.0); Hemoglobin 10.3 g/dL (14.0-18.0); Mean Corpuscular HGB CONC 33.3 g/dL (32.0-36.0); Mean Corpuscular Hemoglobin 30.1 pg (27.0-31.0); Mean Corpuscular Volume 90.4 fl (78.0-98.0); Mean Platelet Volume 10.4 fL (7.4-10.4); Platelet Count 206 10x3/uL (130-400); Red Blood Cell (RBC) Count 3.42 mill/uL (4.70-6.10); White Blood Cell (WBC) Count 7.5 10x3/uL (4.8-10.8)
[2023-03-28 09:50] LABS: Anion Gap 13 mmol/L (10-20); BUN (Urea Nitrogen) 18 mg/dL (8.4-25.7); Calc. Creatinine Clearance 54 mL/min (70-130); Calcium 9.2 mg/dL (7.8-10.44); Carbon Dioxide 21 mmol/L (23-31); Chloride 104 mmol/L (98-107); Estimated GFR 35; Glucose 87 mg/dL (80-115); Potassium 4.2 mmol/L (3.5-5.1); Sodium 134 mmol/L (136-145)
[2023-03-28 10:02] LABS: Troponin I Less than 0.010 ng/mL (< 0.028)
[2023-03-28] MEDS ORDERED: hydrOXYzine 25 MG TAB PO SCH (10:45)
[2023-03-28] MEDS: Calcium Carbonate 500 MG ChewTAB PO PRN (14:40)
[2023-03-28] MEDS ORDERED: VANCOMYCIN 1.25 GM/250 ML BAG 1.25 GM in Premix Bag 1 BAG IVPB SCH (16:00)
[2023-03-28 17:19] LABS: Vancomycin, Random 12.6 ug/mL (See Comment)
[2023-03-28] MEDS: VANCOMYCIN 1.25 GM/250 ML BAG 1.25 GM in Premix Bag 1 BAG IVPB SCH (18:16)
[2023-03-28] MEDS: hydrOXYzine 25 MG TAB PO PRN (18:21)
[2023-03-28] MEDS: Famotidine/PF 20 mg/2ml Vial SLOW IVP SCH (22:04)
[2023-03-29] MEDS: Acetaminophen 325 MG TAB PO PRN ×2 (01:17→08:01)
[2023-03-29] MEDS: Calcium Carbonate 500 MG ChewTAB PO PRN ×2 (01:18→08:19)
[2023-03-29 07:25] LABS: Anion Gap 15 mmol/L (10-20); BUN (Urea Nitrogen) 16 mg/dL (8.4-25.7); Calc. Creatinine Clearance 63 mL/min (70-130); Calcium 9.2 mg/dL (7.8-10.44); Carbon Dioxide 21 mmol/L (23-31); Chloride 107 mmol/L (98-107); Estimated GFR 42; Glucose 84 mg/dL (80-115); Magnesium 1.7 mg/dL (1.6-2.6); Phosphorus 3.2 mg/dL (2.3-4.7); Potassium 3.9 mmol/L (3.5-5.1); Sodium 139 mmol/L (136-145)
[2023-03-29] MEDS: Heparin 5,000 UNITS/ML VIAL SC SCH ×2 (08:01→21:11)
[2023-03-29] MEDS: hydrOXYzine 25 MG TAB PO PRN ×2 (08:19→17:59)
[2023-03-29] MEDS: HYDROcodone/Acetaminophen 5/325 mg Tablet PO PRN ×3 (10:29→21:09)
[2023-03-29] MEDS: Ondansetron PF 4 MG/2 ML Vial IVP PRN ×2 (14:40→21:09)
[2023-03-29] MEDS: VANCOMYCIN 1.25 GM/250 ML BAG 1.25 GM in Premix Bag 1 BAG IVPB SCH (17:59)
[2023-03-29] MEDS: Famotidine/PF 20 mg/2ml Vial SLOW IVP SCH (21:10)
[2023-03-30] MEDS: hydrOXYzine 25 MG TAB PO PRN ×2 (00:17→21:44)
[2023-03-30] MEDS: Hydrocortisone 1% Cream 30 GM TUBE TOP PRN (00:17)
[2023-03-30] MEDS: Ondansetron PF 4 MG/2 ML Vial IVP PRN (03:04)
[2023-03-30] MEDS: Acetaminophen 325 MG TAB PO PRN (03:04)
[2023-03-30] MEDS: HYDROcodone/Acetaminophen 5/325 mg Tablet PO PRN (04:28)
[2023-03-30] MEDS: Sodium Chloride 0.9% 1,000 ML IV SCH ×2 (08:02→20:48)
[2023-03-30] MEDS: Heparin 5,000 UNITS/ML VIAL SC SCH ×2 (08:02→20:25)
[2023-03-30] MEDS ORDERED: Ibuprofen 600 MG TAB PO PRN (12:03)
[2023-03-30] MEDS ORDERED: Propofol 1,000 MG/100 ML VIAL IV ONE (12:13)
[2023-03-30] MEDS ORDERED: Midazolam HCl 2 mg/2 ml Vial ONE (12:13)
[2023-03-30] MEDS ORDERED: Ketamine 50 MG/ML (10ML VIAL) ONE (12:13)
[2023-03-30] MEDS ORDERED: fentaNYL 50 mcg/mL 1 mL Vial ONE (12:13)
[2023-03-30] MEDS ORDERED: Acetaminophen 500 MG TAB PO SCH (12:15)
[2023-03-30] MEDS: Gabapentin 300 MG CAP PO SCH ×2 (14:50→20:23)
[2023-03-30 17:30] LABS: Vancomycin, Trough 17.4 ug/mL
[2023-03-30] MEDS: Acetaminophen 500 MG TAB PO SCH (18:04)
[2023-03-30] MEDS: VANCOMYCIN 1.25 GM/250 ML BAG 1.25 GM in Premix Bag 1 BAG IVPB SCH (18:46)
[2023-03-30] MEDS: traMADol HCl 50 MG TAB PO PRN ×2 (18:47→22:50)
[2023-03-30] MEDS: Famotidine/PF 20 mg/2ml Vial SLOW IVP SCH (20:23)
[2023-03-30] MEDS: Fioricet 325/50/40 mg Tablet PO PRN (20:24)
[2023-03-30] MEDS ORDERED: clonazePAM 1 MG TAB PO SCH (21:00)
[2023-03-31] MEDS: Acetaminophen 500 MG TAB PO SCH ×5 (00:35→23:51)
[2023-03-31] MEDS: traMADol HCl 50 MG TAB PO PRN ×2 (04:46→09:02)
[2023-03-31] MEDS: Hydrocortisone 1% Cream 30 GM TUBE TOP PRN (04:46)
[2023-03-31] MEDS: Fioricet 325/50/40 mg Tablet PO PRN ×2 (05:54→21:11)
[2023-03-31 07:00] LABS: #Eosinphils 0.4 thou/uL (0.0-0.7); #Monocytes 0.7 thou/uL (0.11-0.59); %Basophils 0.4 % (0.0-1.0); %Eosinophils 4.6 % (0.0-10.0); %Lymphocytes 15.9 % (21.0-51.0); %Monocytes 8.7 % (0.0-10.0); %Neutrophils 70.3 % (42.0-75.0); Hematocrit 31.6 % (42.0-52.0); Hemoglobin 10.1 g/dL (14.0-18.0); Mean Corpuscular Hemoglobin 30.2 pg (27.0-31.0); Mean Corpuscular Volume 94.6 fl (78.0-98.0); Mean Platelet Volume 10.9 fL (7.4-10.4); Platelet Count 131 10x3/uL (130-400); RBC Distribution Width 13.9 % (11.5-14.5); Red Blood Cell (RBC) Count 3.34 mill/uL (4.70-6.10); White Blood Cell (WBC) Count 8.5 10x3/uL (4.8-10.8)
[2023-03-31 07:08] LABS: Hemoglobin A1c 5.6 % (4.0-6.0)
[2023-03-31 07:34] LABS: Anion Gap 14 mmol/L (10-20); BUN (Urea Nitrogen) 11 mg/dL (8.4-25.7); Calc. Creatinine Clearance 60 mL/min (70-130); Calcium 9.1 mg/dL (7.8-10.44); Carbon Dioxide 21 mmol/L (23-31); Chloride 104 mmol/L (98-107); Estimated GFR 41; Glucose 145 mg/dL (80-115); Potassium 4.2 mmol/L (3.5-5.1); Sodium 135 mmol/L (136-145)
[2023-03-31] MEDS: Gabapentin 300 MG CAP PO SCH ×3 (09:03→21:11)
[2023-03-31] MEDS: Heparin 5,000 UNITS/ML VIAL SC SCH ×2 (09:03→21:12)
[2023-03-31] MEDS: VANCOMYCIN 1.25 GM/250 ML BAG 1.25 GM in Premix Bag 1 BAG IVPB SCH (17:24)
[2023-03-31] MEDS: Famotidine/PF 20 mg/2ml Vial SLOW IVP SCH (21:12)
[2023-03-31] MEDS ORDERED: hydrOXYzine 25 MG TAB PO SCH (21:45)
[2023-03-31] MEDS: Morphine 2 MG/ML VIAL SLOW IVP PRN (23:48)
[2023-04-01] MEDS: Acetaminophen 500 MG TAB PO SCH ×4 (06:41→22:28)
[2023-04-01 06:55] LABS: #Eosinphils 0.4 thou/uL (0.0-0.7); #Monocytes 0.9 thou/uL (0.11-0.59); #Neutrophils 5.2 thou/uL (1.40-6.50); %Basophils 0.5 % (0.0-1.0); %Eosinophils 5.1 % (0.0-10.0); %Monocytes 10.9 % (0.0-10.0); %Neutrophils 62.3 % (42.0-75.0); Hematocrit 31.9 % (42.0-52.0); Hemoglobin 10.6 g/dL (14.0-18.0); Mean Corpuscular HGB CONC 33.2 g/dL (32.0-36.0); Mean Corpuscular Hemoglobin 30.6 pg (27.0-31.0); Mean Corpuscular Volume 92.2 fl (78.0-98.0); Mean Platelet Volume 9.9 fL (7.4-10.4); Platelet Count 163 10x3/uL (130-400); RBC Distribution Width 14.3 % (11.5-14.5); Red Blood Cell (RBC) Count 3.46 mill/uL (4.70-6.10); White Blood Cell (WBC) Count 8.4 10x3/uL (4.8-10.8)
[2023-04-01 07:17] LABS: Anion Gap 13 mmol/L (10-20); BUN (Urea Nitrogen) 12 mg/dL (8.4-25.7); Calc. Creatinine Clearance 63 mL/min (70-130); Calcium 9.2 mg/dL (7.8-10.44); Carbon Dioxide 26 mmol/L (23-31); Chloride 103 mmol/L (98-107); Estimated GFR 43; Glucose 90 mg/dL (80-115); Potassium 3.8 mmol/L (3.5-5.1); Sodium 138 mmol/L (136-145)
[2023-04-01] MEDS: Gabapentin 300 MG CAP PO SCH ×3 (08:25→20:57)
[2023-04-01] MEDS: Heparin 5,000 UNITS/ML VIAL SC SCH ×2 (08:26→20:59)
[2023-04-01] MEDS: Fioricet 325/50/40 mg Tablet PO PRN ×2 (12:44→22:29)
[2023-04-01] MEDS: Hydrocortisone 1% Cream 30 GM TUBE TOP PRN (12:45)
[2023-04-01 16:49] LABS: Reference Lab Name LABCORP
[2023-04-01 16:50] LABS: Reference Lab Name LABCORP
[2023-04-01 17:33] LABS: Vancomycin, Trough 17.7 ug/mL
[2023-04-01] MEDS: VANCOMYCIN 1.25 GM/250 ML BAG 1.25 GM in Premix Bag 1 BAG IVPB SCH (18:08)
[2023-04-01] MEDS: Famotidine/PF 20 mg/2ml Vial SLOW IVP SCH (20:57)
[2023-04-01] MEDS: Morphine 2 MG/ML VIAL SLOW IVP PRN (22:28)
[2023-04-01] MEDS: hydrOXYzine 25 MG TAB PO PRN (22:29)
[2023-04-02 06:17] VITALS: BMI 29.0
[2023-04-02] MEDS: Acetaminophen 500 MG TAB PO SCH ×4 (06:31→23:59)
[2023-04-02] MEDS: Fioricet 325/50/40 mg Tablet PO PRN ×3 (06:33→16:55)
[2023-04-02] MEDS: Morphine 2 MG/ML VIAL SLOW IVP PRN ×2 (06:33→09:35)
[2023-04-02] MEDS ORDERED: [UNRECOGNIZED DRUG - OTHER] PO SCH (09:00)
[2023-04-02] MEDS ORDERED: OMEGA PO SCH (09:00)
[2023-04-02] MEDS ORDERED: DHA PO SCH (09:00)
[2023-04-02] MEDS ORDERED: D3 PO SCH (09:00)
[2023-04-02] MEDS ORDERED: CLONAZEPAM PO SCH (09:00)
[2023-04-02] MEDS ORDERED: FISH OIL PO SCH (09:00)
[2023-04-02] MEDS ORDERED: EPA PO SCH (09:00)
[2023-04-02] MEDS ORDERED: Non-Formulary Item 1 EACH (Paroxetine Hcl [Paroxetine Hcl] 40 MG Tablet) PO SCH (09:00)
[2023-04-02] MEDS: cefTRIAXone\\ROCEPHIN 2 GM in Sodium Chloride 0.9% 100 ML IVPB SCH (09:01)
[2023-04-02] MEDS: Gabapentin 300 MG CAP PO SCH ×3 (09:01→20:46)
[2023-04-02] MEDS: PARoxetine 20 MG TAB PO SCH (09:12)
[2023-04-02] MEDS: Levothyroxine Sodium 100 MCG TAB PO SCH (09:13)
[2023-04-02] MEDS: Lisinopril 2.5 MG TAB PO SCH (09:13)
[2023-04-02] MEDS: Pregabalin 50 MG CAP PO SCH ×3 (09:13→20:40)
[2023-04-02] MEDS: clonazePAM 1 MG TAB PO SCH ×2 (09:13→20:39)
[2023-04-02] MEDS: Fish Oil 1,000 MG CAP PO SCH ×2 (09:14→20:38)
[2023-04-02] MEDS: Heparin 5,000 UNITS/ML VIAL SC SCH ×2 (09:17→20:41)
[2023-04-02] MEDS: Hydrocortisone 1% Cream 30 GM TUBE TOP PRN (09:18)
[2023-04-02] MEDS ORDERED: Iopamidol 370 76% 100 ML VIAL ONE (10:51)
[2023-04-02] MEDS: traMADol HCl 50 MG TAB PO PRN (13:48)
[2023-04-02] MEDS: Ondansetron PF 4 MG/2 ML Vial IVP PRN (16:58)
[2023-04-02] MEDS: Atorvastatin Calcium 40 MG TAB PO SCH (20:38)
[2023-04-02] MEDS: Famotidine/PF 20 mg/2ml Vial SLOW IVP SCH (20:41)
[2023-04-02] MEDS ORDERED: Non-Formulary Item 1 EACH (Clonazepam [Clonazepam] 2 MG Tablet) PO SCH (21:00)
[2023-04-03] MEDS: Fioricet 325/50/40 mg Tablet PO PRN ×3 (00:47→20:37)
[2023-04-03] MEDS: Acetaminophen 500 MG TAB PO SCH ×5 (05:17→21:38)
[2023-04-03 06:36] LABS: #Eosinphils 0.4 thou/uL (0.0-0.7); #Monocytes 1.1 thou/uL (0.11-0.59); #Neutrophils 6.8 thou/uL (1.40-6.50); %Basophils 0.2 % (0.0-1.0); %Eosinophils 4.4 % (0.0-10.0); %Lymphocytes 15.5 % (21.0-51.0); %Neutrophils 68.7 % (42.0-75.0); Hematocrit 32.5 % (42.0-52.0); Hemoglobin 10.9 g/dL (14.0-18.0); Mean Corpuscular HGB CONC 33.5 g/dL (32.0-36.0); Mean Corpuscular Hemoglobin 30.4 pg (27.0-31.0); Mean Corpuscular Volume 90.5 fl (78.0-98.0); Platelet Count 159 10x3/uL (130-400); RBC Distribution Width 14.3 % (11.5-14.5); Red Blood Cell (RBC) Count 3.59 mill/uL (4.70-6.10); White Blood Cell (WBC) Count 9.9 10x3/uL (4.8-10.8)
[2023-04-03 07:04] LABS: Anion Gap 13 mmol/L (10-20); BUN (Urea Nitrogen) 12 mg/dL (8.4-25.7); Calc. Creatinine Clearance 66 mL/min (70-130); Calcium 9.1 mg/dL (7.8-10.44); Carbon Dioxide 27 mmol/L (23-31); Chloride 100 mmol/L (98-107); Estimated GFR 45; Glucose 94 mg/dL (80-115); Potassium 3.7 mmol/L (3.5-5.1); Sodium 136 mmol/L (136-145)
[2023-04-03] MEDS: Fish Oil 1,000 MG CAP PO SCH ×2 (09:29→20:19)
[2023-04-03] MEDS: Lisinopril 2.5 MG TAB PO SCH (09:30)
[2023-04-03] MEDS: clonazePAM 1 MG TAB PO SCH ×2 (09:30→20:20)
[2023-04-03] MEDS: PARoxetine 20 MG TAB PO SCH (09:30)
[2023-04-03] MEDS: Heparin 5,000 UNITS/ML VIAL SC SCH ×2 (09:31→20:21)
[2023-04-03] MEDS: Gabapentin 300 MG CAP PO SCH ×3 (09:31→20:19)
[2023-04-03] MEDS: Levothyroxine Sodium 100 MCG TAB PO SCH (09:31)
[2023-04-03] MEDS: Pregabalin 50 MG CAP PO SCH ×2 (09:32→20:20)
[2023-04-03] MEDS: cefTRIAXone\\ROCEPHIN 2 GM in Sodium Chloride 0.9% 100 ML IVPB SCH (09:40)
[2023-04-03] MEDS: Famotidine/PF 20 mg/2ml Vial SLOW IVP SCH ×2 (09:41→20:21)
[2023-04-03] MEDS: Morphine 2 MG/ML VIAL SLOW IVP PRN (14:55)
[2023-04-03] MEDS: Atorvastatin Calcium 40 MG TAB PO SCH (20:20)
[2023-04-04] MEDS: cefTRIAXone\\ROCEPHIN 2 GM in Sodium Chloride 0.9% 100 ML IVPB SCH (09:18)
[2023-04-04] MEDS: clonazePAM 1 MG TAB PO SCH ×2 (09:18→21:38)
[2023-04-04] MEDS: Famotidine/PF 20 mg/2ml Vial SLOW IVP SCH ×2 (09:18→21:56)
[2023-04-04] MEDS: Heparin 5,000 UNITS/ML VIAL SC SCH ×2 (09:19→21:39)
[2023-04-04] MEDS: Fish Oil 1,000 MG CAP PO SCH ×2 (09:19→21:38)
[2023-04-04] MEDS: Gabapentin 300 MG CAP PO SCH ×3 (09:19→21:39)
[2023-04-04] MEDS: Levothyroxine Sodium 100 MCG TAB PO SCH (09:19)
[2023-04-04] MEDS: Lisinopril 2.5 MG TAB PO SCH (09:19)
[2023-04-04] MEDS: PARoxetine 20 MG TAB PO SCH (09:20)
[2023-04-04] MEDS: Pregabalin 50 MG CAP PO SCH ×2 (09:20→21:38)
[2023-04-04] MEDS: Fioricet 325/50/40 mg Tablet PO PRN (09:59)
[2023-04-04] MEDS: Morphine 2 MG/ML VIAL SLOW IVP PRN (12:48)
[2023-04-04] MEDS: Acetaminophen 500 MG TAB PO SCH ×2 (12:58→17:20)
[2023-04-04] MEDS: Atorvastatin Calcium 40 MG TAB PO SCH (21:39)
[2023-04-05] MEDS: Acetaminophen 500 MG TAB PO SCH ×4 (00:06→12:45)
[2023-04-05] MEDS: Famotidine/PF 20 mg/2ml Vial SLOW IVP SCH (08:01)
[2023-04-05] MEDS: Heparin 5,000 UNITS/ML VIAL SC SCH (08:01)
[2023-04-05] MEDS: cefTRIAXone\\ROCEPHIN 2 GM in Sodium Chloride 0.9% 100 ML IVPB SCH (08:01)
[2023-04-05] MEDS: Gabapentin 300 MG CAP PO SCH ×2 (08:01→14:07)
[2023-04-05] MEDS: clonazePAM 1 MG TAB PO SCH (08:02)
[2023-04-05] MEDS: PARoxetine 20 MG TAB PO SCH (08:02)
[2023-04-05] MEDS: Lisinopril 2.5 MG TAB PO SCH (08:03)
[2023-04-05] MEDS: Fish Oil 1,000 MG CAP PO SCH (08:03)
[2023-04-05 08:04] VITALS: BP 114/75; TEMP 97.8
[2023-04-05] MEDS: Pregabalin 50 MG CAP PO SCH (08:04)
[2023-04-05] MEDS: Levothyroxine Sodium 100 MCG TAB PO SCH (08:04)
[2023-04-05] MEDS ORDERED: Fioricet 325/50/40 mg Tablet PO PRN (11:49)
[2023-04-05] MEDS ORDERED: Fioricet 325/50/40 mg Tablet PO SCH (12:00)
== END 2023-04-05 16:49 | disposition home health service (06) | DRG 853 ==
LOC: ERS 10:50 → CCU 13:38 → T4-A 03-27 15:27
PROVIDERS: ADMIT Family Medicine; ATTEND Family Medicine
PROC: 02HV33Z Insertion of Infusion Device into Superior Vena Cava, Percutaneous Approach (ICD-10-PCS; principal; 2023-03-26)
PROC: 3E04329 Introduction of Other Anti-infective into Central Vein, Percutaneous Approach (ICD-10-PCS; 2023-03-26)
PROC: 3E043XZ Introduction of Vasopressor into Central Vein, Percutaneous Approach (ICD-10-PCS; 2023-03-26)
PROC: 0Y6P0Z1 Detachment at Right 1st Toe, High, Open Approach (ICD-10-PCS; 2023-03-30)
PROC: 0Y6V0Z1 Detachment at Right 4th Toe, High, Open Approach (ICD-10-PCS; 2023-03-30)
PROC: 02HV33Z Insertion of Infusion Device into Superior Vena Cava, Percutaneous Approach (ICD-10-PCS; 2023-04-04)
DX: A41.9 Sepsis, unspecified organism (principal); J96.01 Acute respiratory failure with hypoxia; R65.21 Severe sepsis with septic shock; I13.0 Hypertensive heart and chronic kidney disease with heart failure and stage 1 through stage 4 chronic kidney disease, or unspecified chronic kidney disease; I50.22 Chronic systolic (congestive) heart failure; N17.9 Acute kidney failure, unspecified; N18.4 Chronic kidney disease, stage 4 (severe); E87.1 Hypo-osmolality and hyponatremia; M62.82 Rhabdomyolysis; M86.8X8 Other osteomyelitis, other site; I25.10 Atherosclerotic heart disease of native coronary artery without angina pectoris; F41.9 Anxiety disorder, unspecified; E11.22 Type 2 diabetes mellitus with diabetic chronic kidney disease; D63.1 Anemia in chronic kidney disease; D69.6 Thrombocytopenia, unspecified; E03.9 Hypothyroidism, unspecified; M10.9 Gout, unspecified; Z98.890 Other specified postprocedural states; F15.10 Other stimulant abuse, uncomplicated; E78.00 Pure hypercholesterolemia, unspecified; E11.621 Type 2 diabetes mellitus with foot ulcer; L97.519 Non-pressure chronic ulcer of other part of right foot with unspecified severity; E11.69 Type 2 diabetes mellitus with other specified complication; I48.0 Paroxysmal atrial fibrillation; Z87.891 Personal history of nicotine dependence; Z79.82 Long term (current) use of aspirin; Z79.899 Other long term (current) drug therapy; Z95.1 Presence of aortocoronary bypass graft; Z20.822 Contact with and (suspected) exposure to COVID-19
CPT/HCPCS: 36415; 36416; 36556; 36569; 70487; 71045; 80048; 80053; 80202; 80306; 81001; 82533; 82550; 82570; 83036; 83605; 83735; 83880; 83930; 83935; 84100; 84145; 84300; 84439; 84481; 84484; 84550; 84560; 85025; 85652; 86140; 87040; 87077; 87149; 87186; 88305; 88311; 93005; 93010; 93306; 93923; 94760; 96365; 96366; 96367; 96368; 96375; 97139; J0461; J0696; J1265; J1644; J2250; J2272; J2405; J2543; J2704; J2765; J3010; J3370; J3475; J3490; J7050; Q9967; S0028

== ENCOUNTER 2023-07-01 13:31 | Inpatient (IN) | payer MEDICARE ==
[2023-07-01 14:36] LABS: #Eosinphils 0.4 thou/uL (0.0-0.7); #Monocytes 1.1 thou/uL (0.11-0.59); #Neutrophils 9.6 thou/uL (1.40-6.50); %Basophils 0.2 % (0.0-1.0); %Eosinophils 3.2 % (0.0-10.0); %Lymphocytes 12.6 % (21.0-51.0); %Monocytes 8.8 % (0.0-10.0); %Neutrophils 74.8 % (42.0-75.0); Hematocrit 33.3 % (42.0-52.0); Hemoglobin 11.1 g/dL (14.0-18.0); Mean Corpuscular HGB CONC 33.3 g/dL (32.0-36.0); Mean Corpuscular Hemoglobin 30.2 pg (27.0-31.0); Mean Corpuscular Volume 90.7 fl (78.0-98.0); Mean Platelet Volume 11.2 fL (7.4-10.4); Platelet Count 135 10x3/uL (130-400); RBC Distribution Width 14.1 % (11.5-14.5); Red Blood Cell (RBC) Count 3.67 mill/uL (4.70-6.10); White Blood Cell (WBC) Count 12.9 10x3/uL (4.8-10.8)
[2023-07-01 14:58] LABS: ALT (SGPT) 16 U/L (8-55); AST (SGOT) 23 U/L (5-34); Albumin 3.3 g/dL (3.4-4.8); Alkaline Phosphatase 97 U/L (40-110); Anion Gap 13 mmol/L (10-20); BUN (Urea Nitrogen) 16 mg/dL (8.4-25.7); Bilirubin, Total 0.9 mg/dL (0.2-1.2); Calc. Creatinine Clearance 0 mL/min (70-130); Calcium 8.8 mg/dL (7.8-10.44); Carbon Dioxide 24 mmol/L (23-31); Chloride 102 mmol/L (98-107); Estimated GFR 47; Globulin 3.2 g/dL (2.4-3.5); Glucose 120 mg/dL (80-115); Potassium 3.8 mmol/L (3.5-5.1); Protein, Total 6.5 g/dL (5.8-8.1); Sodium 135 mmol/L (136-145)
[2023-07-01] MEDS ORDERED: Cefepime 2 GM VIAL ONE (16:28)
[2023-07-01] MEDS ORDERED: Sodium Chloride 0.9% 100 ML ONE (16:28)
[2023-07-01] MEDS ORDERED: LevoFLOXacin 750 mg/D5W 150 ml Premix Bag ONE (16:46)
[2023-07-01] MEDS ORDERED: Vancomycin (BATCH) 2 GM/500 ML BAG ONE (16:55)
[2023-07-01] MEDS ORDERED: Acetaminophen 325 MG TAB PO PRN (17:22)
[2023-07-01] MEDS ORDERED: Dextrose 50% Abboject 50 ML SYRINGE SLOW IVP PRN (17:22)
[2023-07-01] MEDS ORDERED: Dextrose 5% in Water 1,000 ML IV PRN (17:22)
[2023-07-01] MEDS ORDERED: Glucagon 1 MG/ML KIT IM PRN (17:22)
[2023-07-01] MEDS ORDERED: Insulin Regular 300 UNITS/3 ML VIAL SC PRN (17:22)
[2023-07-01] MEDS ORDERED: Acetaminophen 500 MG TAB ONE (18:25)
[2023-07-01] MEDS ORDERED: Atorvastatin Calcium 40 MG TAB PO SCH (21:00)
[2023-07-01] MEDS ORDERED: Vancomycin 2 GM in Sodium Chloride 0.9% 250 ML 250 ML IVPB SCH (21:00)
[2023-07-01 21:53] VITALS: BMI 28.0
[2023-07-01] MEDS: Pregabalin 50 MG CAP PO SCH (21:58)
[2023-07-01] MEDS: Famotidine 20 MG TAB PO SCH (22:01)
[2023-07-01] MEDS: metroNIDAZOLE 500 MG in Premix 1 BAG IVPB SCH (22:30)
[2023-07-02] MEDS ORDERED: traMADol HCl 50 MG TAB PO PRN (04:08)
[2023-07-02] MEDS: Cefepime 2 GM in Sodium Chloride 0.9% 100 ML IVPB SCH ×2 (04:28→16:05)
[2023-07-02] MEDS: Vancomycin 1 GM in Premix 1 BAG IVPB SCH ×2 (05:25→16:49)
[2023-07-02] MEDS ORDERED: Levothyroxine Sodium 100 MCG TAB PO SCH (06:00)
[2023-07-02 06:11] LABS: #Eosinphils 0.5 thou/uL (0.0-0.7); #Monocytes 0.7 thou/uL (0.11-0.59); #Neutrophils 4.3 thou/uL (1.40-6.50); %Basophils 0.3 % (0.0-1.0); %Eosinophils 7.8 % (0.0-10.0); %Lymphocytes 12.9 % (21.0-51.0); %Monocytes 11.1 % (0.0-10.0); %Neutrophils 67.7 % (42.0-75.0); Hematocrit 34.9 % (42.0-52.0); Hemoglobin 11.4 g/dL (14.0-18.0); Mean Corpuscular HGB CONC 32.7 g/dL (32.0-36.0); Mean Corpuscular Hemoglobin 30.2 pg (27.0-31.0); Mean Corpuscular Volume 92.6 fl (78.0-98.0); Mean Platelet Volume 11.3 fL (7.4-10.4); Platelet Count 106 10x3/uL (130-400); RBC Distribution Width 14.1 % (11.5-14.5); Red Blood Cell (RBC) Count 3.77 mill/uL (4.70-6.10); White Blood Cell (WBC) Count 6.4 10x3/uL (4.8-10.8)
[2023-07-02 06:45] LABS: CellaVision Operator ID lab.abc; Platelet Adequacy Comment Platelets Decreased; RBC Morphology Within Normal Limits
[2023-07-02 06:48] LABS: Anion Gap 13 mmol/L (10-20); BUN (Urea Nitrogen) 15 mg/dL (8.4-25.7); Calc. Creatinine Clearance 70 mL/min (70-130); Calcium 8.8 mg/dL (7.8-10.44); Carbon Dioxide 23 mmol/L (23-31); Chloride 106 mmol/L (98-107); Estimated GFR 47; Glucose 103 mg/dL (80-115); Potassium 3.7 mmol/L (3.5-5.1); Sodium 138 mmol/L (136-145)
[2023-07-02] MEDS: metroNIDAZOLE 500 MG in Premix 1 BAG IVPB SCH ×3 (06:50→21:33)
[2023-07-02] MEDS ORDERED: clonazePAM 1 MG TAB PO SCH (09:00)
[2023-07-02] MEDS: Famotidine 20 MG TAB PO SCH ×2 (09:07→21:31)
[2023-07-02] MEDS: Pregabalin 50 MG CAP PO SCH ×3 (09:07→23:23)
[2023-07-02] MEDS ORDERED: Non-Formulary Item 1 EACH (Dextroamphetamine/Amphetamine [Adderall] 30 MG Tablet) PO SCH (09:26)
[2023-07-02] MEDS ORDERED: Non-Formulary Item 1 EACH (Clonazepam [Clonazepam] 2 MG Tablet) PO SCH (09:26)
[2023-07-02] MEDS ORDERED: Non-Formulary Item 1 EACH (Paroxetine Hcl [Paroxetine Hcl] 40 MG Tablet) PO SCH (09:27)
[2023-07-02] MEDS ORDERED: Non-Formulary Item 1 EACH (Oxybutynin Chloride [Oxybutynin Chloride Er] 10 MG Tab.Er.24) PO SCH (10:02)
[2023-07-02] MEDS ORDERED: Oxybutynin ER 5 MG TAB PO SCH (10:30)
[2023-07-02] MEDS ORDERED: Fioricet 325/50/40 mg Tablet PO SCH (10:45)
[2023-07-02] MEDS: Atenolol 50 MG TAB PO SCH (13:04)
[2023-07-02] MEDS: Atorvastatin Calcium 40 MG TAB PO SCH (21:31)
[2023-07-02] MEDS: Fioricet 325/50/40 mg Tablet PO PRN (21:41)
[2023-07-02] MEDS: clonazePAM 1 MG TAB PO SCH (23:23)
[2023-07-03 05:02] LABS: Vancomycin, Trough 18.9 ug/mL
[2023-07-03] MEDS: Cefepime 2 GM in Sodium Chloride 0.9% 100 ML IVPB SCH (05:03)
[2023-07-03] MEDS: Vancomycin 1 GM in Premix 1 BAG IVPB SCH ×2 (05:59→16:38)
[2023-07-03] MEDS: Levothyroxine Sodium 88 MCG TAB PO SCH (06:21)
[2023-07-03] MEDS: clonazePAM 1 MG TAB PO SCH ×2 (06:46→20:40)
[2023-07-03] MEDS: metroNIDAZOLE 500 MG in Premix 1 BAG IVPB SCH ×3 (07:25→20:40)
[2023-07-03] MEDS ORDERED: Levothyroxine Sodium 88 MCG TAB PO SCH (09:00)
[2023-07-03] MEDS: Oxybutynin ER 5 MG TAB PO SCH (09:23)
[2023-07-03] MEDS: PARoxetine 20 MG TAB PO SCH (09:23)
[2023-07-03] MEDS: Famotidine 20 MG TAB PO SCH ×2 (09:24→20:40)
[2023-07-03] MEDS: Pregabalin 50 MG CAP PO SCH ×2 (09:24→20:40)
[2023-07-03] MEDS: Atenolol 50 MG TAB PO SCH (09:25)
[2023-07-03] MEDS ORDERED: Fioricet 325/50/40 mg Tablet PO SCH (11:15)
[2023-07-03] MEDS: cefTRIAXone\\ROCEPHIN 2 GM in Sodium Chloride 0.9% 100 ML IVPB SCH (13:12)
[2023-07-03] MEDS: Fioricet 325/50/40 mg Tablet PO PRN (19:09)
[2023-07-03] MEDS: Atorvastatin Calcium 40 MG TAB PO SCH (20:39)
[2023-07-04] MEDS: Vancomycin 1 GM in Premix 1 BAG IVPB SCH (05:43)
[2023-07-04] MEDS: metroNIDAZOLE 500 MG in Premix 1 BAG IVPB SCH ×3 (05:44→20:38)
[2023-07-04] MEDS: Levothyroxine Sodium 88 MCG TAB PO SCH (05:44)
[2023-07-04] MEDS ORDERED: PROPOFOL 20 ML ONE (06:38)
[2023-07-04] MEDS ORDERED: Ondansetron PF 4 MG/2 ML Vial ONE ×2 (06:38→10:34)
[2023-07-04] MEDS ORDERED: Rocuronium Bromide 10 MG/ML (10ML VIAL) ONE ×2 (06:39→10:34)
[2023-07-04] MEDS ORDERED: Succinylcholine 200 MG/10 ml SYRINGE FS ONE (06:39)
[2023-07-04] MEDS ORDERED: Lidocaine 1% PF 5 ML VIAL ONE ×2 (06:39→10:34)
[2023-07-04 07:14] LABS: Bilirubin Negative (Negative); Blood, Urine Negative (Negative); CAUTI Indications for Culture Dysuria,urgency,freq; Clarity Clear (Clear); Glucose, Urine (Dipstick) Normal (Negative); Ketone, Urine Negative (Negative); Leukocyte 25 Leu/uL (Negative); Nitrite Negative (Negative); Protein, Urine (Dipstick) Negative (Neg-Trace); RBC/HPF 0-3 HPF (0-3); Specific Gravity, Urine 1.011 (1.002-1.036); Squamous Epithelial 0-3 HPF (0-3); Urobilinogen Normal mg/dL (Less than 2)
[2023-07-04 07:19] LABS: Bacteria/HPF Rare-Few HPF (None Seen); Urine Culture Reflex No No
[2023-07-04] MEDS: Famotidine 20 MG TAB PO SCH ×2 (08:13→20:37)
[2023-07-04] MEDS: Atenolol 50 MG TAB PO SCH (08:13)
[2023-07-04] MEDS: clonazePAM 1 MG TAB PO SCH ×2 (08:14→20:38)
[2023-07-04] MEDS: Oxybutynin ER 5 MG TAB PO SCH (08:15)
[2023-07-04] MEDS: Pregabalin 50 MG CAP PO SCH ×2 (08:15→20:38)
[2023-07-04] MEDS: PARoxetine 20 MG TAB PO SCH ×2 (08:15→16:18)
[2023-07-04] MEDS ORDERED: Iopamidol 15 ML ONE (09:18)
[2023-07-04] MEDS ORDERED: fentaNYL PF 100 MCG/2 ML SYRINGE ONE (09:21)
[2023-07-04] MEDS ORDERED: ePHEDrine Sulfate 50 MG/10 ML VIAL ONE (09:26)
[2023-07-04] MEDS ORDERED: PHENYLEPHRINE-NS 100 MCG/ML 10 ML SYRINGE ONE (09:27)
[2023-07-04] MEDS ORDERED: SUGAMMADEX SODIUM 200 MG/2 ML VIAL ONE (09:29)
[2023-07-04] MEDS ORDERED: PROPOFOL 200 MG/20 ML VIAL ONE (10:34)
[2023-07-04] MEDS ORDERED: Dexamethasone 20 MG/5 ML VIAL ONE (10:34)
[2023-07-04] MEDS ORDERED: Naloxone HCl 0.4 mg/ml Vial ONE (10:58)
[2023-07-04] MEDS ORDERED: Sterile Water 10 ML ONE (10:59)
[2023-07-04] MEDS: Fioricet 325/50/40 mg Tablet PO PRN (13:43)
[2023-07-04] MEDS ORDERED: Vancomycin 1 GM in Premix 1 BAG IVPB SCH (14:15)
[2023-07-04] MEDS: cefTRIAXone\\ROCEPHIN 2 GM in Sodium Chloride 0.9% 100 ML IVPB SCH (14:33)
[2023-07-04 17:00] LABS: Vancomycin, Trough 23.4 ug/mL
[2023-07-04] MEDS: Atorvastatin Calcium 40 MG TAB PO SCH (20:37)
[2023-07-04] MEDS: Colchicine 0.3 MG TAB PO SCH (20:38)
[2023-07-04] MEDS ORDERED: Colchicine 0.6 MG TAB PO SCH (21:00)
[2023-07-05] MEDS: metroNIDAZOLE 500 MG in Premix 1 BAG IVPB SCH ×2 (05:40→14:28)
[2023-07-05] MEDS: Levothyroxine Sodium 88 MCG TAB PO SCH (05:40)
[2023-07-05 06:24] LABS: Anion Gap 13 mmol/L (10-20); BUN (Urea Nitrogen) 15 mg/dL (8.4-25.7); CRP (Inflammatory) 2.04 mg/dL (= or < 0.5); Calc. Creatinine Clearance 76 mL/min (70-130); Calcium 8.6 mg/dL (7.8-10.44); Carbon Dioxide 23 mmol/L (23-31); Chloride 106 mmol/L (98-107); Estimated GFR 52; Glucose 124 mg/dL (80-115); Sodium 138 mmol/L (136-145)
[2023-07-05] MEDS ORDERED: Vancomycin (BATCH) 1.75 GM in Premix 1 BAG IVPB SCH (08:00)
[2023-07-05] MEDS: Oxybutynin ER 5 MG TAB PO SCH (09:20)
[2023-07-05] MEDS: Atenolol 50 MG TAB PO SCH (09:20)
[2023-07-05] MEDS: clonazePAM 1 MG TAB PO SCH ×2 (09:20→20:02)
[2023-07-05] MEDS: Famotidine 20 MG TAB PO SCH ×2 (09:20→20:02)
[2023-07-05] MEDS: Fioricet 325/50/40 mg Tablet PO PRN (09:22)
[2023-07-05] MEDS: PARoxetine 20 MG TAB PO SCH (09:22)
[2023-07-05] MEDS: Pregabalin 50 MG CAP PO SCH ×2 (09:22→20:02)
[2023-07-05] MEDS: Colchicine 0.3 MG TAB PO SCH ×2 (11:19→20:02)
[2023-07-05] MEDS: cefTRIAXone\\ROCEPHIN 2 GM in Sodium Chloride 0.9% 100 ML IVPB SCH (14:28)
[2023-07-05] MEDS: Icosapent Ethyl 1 GM CAPSULE PO SCH (17:53)
[2023-07-05] MEDS: Atorvastatin Calcium 40 MG TAB PO SCH (20:02)
[2023-07-05] MEDS: Linezolid 600 MG TAB PO SCH (20:03)
[2023-07-05] MEDS ORDERED: Lisinopril 5 MG TAB PO SCH (21:00)
[2023-07-06] MEDS: Levothyroxine Sodium 88 MCG TAB PO SCH (05:20)
[2023-07-06 07:29] VITALS: BP 118/73; TEMP 97.7
[2023-07-06] MEDS: Linezolid 600 MG TAB PO SCH (08:24)
[2023-07-06] MEDS: clonazePAM 1 MG TAB PO SCH (08:24)
[2023-07-06] MEDS: Oxybutynin ER 5 MG TAB PO SCH (08:24)
[2023-07-06] MEDS: Famotidine 20 MG TAB PO SCH (08:24)
[2023-07-06] MEDS: Icosapent Ethyl 1 GM CAPSULE PO SCH (08:24)
[2023-07-06] MEDS: Atenolol 50 MG TAB PO SCH (08:24)
[2023-07-06] MEDS: Colchicine 0.3 MG TAB PO SCH (08:25)
[2023-07-06] MEDS: PARoxetine 20 MG TAB PO SCH (08:25)
[2023-07-06] MEDS: Pregabalin 50 MG CAP PO SCH (08:25)
== END 2023-07-06 14:12 | disposition home or self-care (01) | DRG 638 ==
LOC: ERS 13:31 → T4-B 21:25
PROVIDERS: ADMIT Internal Medicine; ATTEND Family Medicine
PROC: 0FPB8DZ Removal of Intraluminal Device from Hepatobiliary Duct, Via Natural or Artificial Opening Endoscopic (ICD-10-PCS; principal; 2023-07-04)
DX: E11.69 Type 2 diabetes mellitus with other specified complication (principal); I13.0 Hypertensive heart and chronic kidney disease with heart failure and stage 1 through stage 4 chronic kidney disease, or unspecified chronic kidney disease; I50.22 Chronic systolic (congestive) heart failure; M86.9 Osteomyelitis, unspecified; L03.115 Cellulitis of right lower limb; E11.621 Type 2 diabetes mellitus with foot ulcer; L97.519 Non-pressure chronic ulcer of other part of right foot with unspecified severity; E78.5 Hyperlipidemia, unspecified; E11.22 Type 2 diabetes mellitus with diabetic chronic kidney disease; N18.30 Chronic kidney disease, stage 3 unspecified; F41.9 Anxiety disorder, unspecified; E03.9 Hypothyroidism, unspecified; I25.10 Atherosclerotic heart disease of native coronary artery without angina pectoris; Z83.3 Family history of diabetes mellitus; Z87.891 Personal history of nicotine dependence; Z95.1 Presence of aortocoronary bypass graft; Z89.421 Acquired absence of other right toe(s); Z79.899 Other long term (current) drug therapy; M10.9 Gout, unspecified
CPT/HCPCS: 36415; 36416; 74018; 74330; 80048; 80053; 80202; 81001; 83605; 84550; 85025; 86140; 87040; 96365; 96366; 96367; 97139; J0692; J0696; J1100; J1815; J1956; J2310; J2405; J2704; J3370; J3370-JW; J3490; Q9967

== ENCOUNTER 2023-09-01 19:28 | Inpatient (IN) | payer MEDICARE ==
[2023-09-01 20:20] LABS: #Eosinphils 0.4 thou/uL (0.0-0.7); #Monocytes 0.6 thou/uL (0.11-0.59); #Neutrophils 4.4 thou/uL (1.40-6.50); %Basophils 0.2 % (0.0-1.0); %Eosinophils 6.4 % (0.0-10.0); %Lymphocytes 8.9 % (21.0-51.0); %Monocytes 10.7 % (0.0-10.0); %Neutrophils 73.6 % (42.0-75.0); Hematocrit 32.3 % (42.0-52.0); Hemoglobin 10.9 g/dL (14.0-18.0); Mean Corpuscular HGB CONC 33.7 g/dL (32.0-36.0); Mean Corpuscular Hemoglobin 29.6 pg (27.0-31.0); Mean Corpuscular Volume 87.8 fl (78.0-98.0); Mean Platelet Volume 10.8 fL (7.4-10.4); RBC Distribution Width 14.8 % (11.5-14.5); Red Blood Cell (RBC) Count 3.68 mill/uL (4.70-6.10)
[2023-09-01 20:23] LABS: Platelet Count 112 10x3/uL (130-400)
[2023-09-01 20:39] LABS: ALT (SGPT) 21 U/L (8-55); AST (SGOT) 27 U/L (5-34); Acetaminophen Less than 10 mcg/mL (10.0-30.0); Albumin 3.6 g/dL (3.4-4.8); Alcohol Less than 10.0 mg/dL (Less than 10); Alkaline Phosphatase 98 U/L (40-110); Anion Gap 13 mmol/L (10-20); BUN (Urea Nitrogen) 15 mg/dL (8.4-25.7); Bilirubin, Total 0.7 mg/dL (0.2-1.2); Calc. Creatinine Clearance 0 mL/min (70-130); Carbon Dioxide 25 mmol/L (23-31); Chloride 103 mmol/L (98-107); Estimated GFR 36; Globulin 3.1 g/dL (2.4-3.5); Glucose 126 mg/dL (80-115); Magnesium 1.8 mg/dL (1.6-2.6); Potassium 3.8 mmol/L (3.5-5.1); Protein, Total 6.7 g/dL (5.8-8.1); Salicylate Less than 8.0 mg/dL (15.0-30.0); Sodium 137 mmol/L (136-145)
[2023-09-01 20:54] LABS: SARS-CoV-2 NAA Rapid Test Not Detected (NotDetected)
[2023-09-01] MEDS ORDERED: Piperacillin/Tazobactam 4.5 GM VIAL ONE (22:19)
[2023-09-01] MEDS ORDERED: Sodium Chloride 0.9% 100 ML ONE (22:19)
[2023-09-01] MEDS ORDERED: Vancomycin 1 GM/200 ML (FROZEN) BAG ONE (23:28)
[2023-09-01] MEDS ORDERED: Ondansetron PF 4 MG/2 ML Vial IVP PRN (23:41)
[2023-09-02 01:19] VITALS: BMI 29.5
[2023-09-02] MEDS: Acetaminophen 325 MG TAB PO PRN (05:29)
[2023-09-02 06:20] LABS: #Eosinphils 0.4 thou/uL (0.0-0.7); #Monocytes 0.8 thou/uL (0.11-0.59); #Neutrophils 4.5 thou/uL (1.40-6.50); %Basophils 0.3 % (0.0-1.0); %Eosinophils 6.3 % (0.0-10.0); %Lymphocytes 10.1 % (21.0-51.0); %Monocytes 12.4 % (0.0-10.0); %Neutrophils 70.6 % (42.0-75.0); Hematocrit 32.4 % (42.0-52.0); Hemoglobin 10.8 g/dL (14.0-18.0); Mean Corpuscular HGB CONC 33.3 g/dL (32.0-36.0); Mean Corpuscular Hemoglobin 29.2 pg (27.0-31.0); Mean Corpuscular Volume 87.6 fl (78.0-98.0); Platelet Count 108 10x3/uL (130-400); RBC Distribution Width 14.7 % (11.5-14.5); White Blood Cell (WBC) Count 6.3 10x3/uL (4.8-10.8)
[2023-09-02 06:42] LABS: Anion Gap 13 mmol/L (10-20); BUN (Urea Nitrogen) 13 mg/dL (8.4-25.7); Calc. Creatinine Clearance 65 mL/min (70-130); Calcium 8.6 mg/dL (7.8-10.44); Carbon Dioxide 22 mmol/L (23-31); Chloride 105 mmol/L (98-107); Estimated GFR 42; Glucose 94 mg/dL (80-115); Potassium 3.9 mmol/L (3.5-5.1); Sodium 136 mmol/L (136-145)
[2023-09-02] MEDS: Pregabalin 50 MG CAP PO SCH (07:55)
[2023-09-02] MEDS: Atenolol 50 MG TAB PO SCH (07:56)
[2023-09-02] MEDS: Allopurinol 100 MG TAB PO SCH (07:56)
[2023-09-02] MEDS: PARoxetine 20 MG TAB PO SCH (07:56)
[2023-09-02] MEDS: Levothyroxine Sodium 88 MCG TAB PO SCH (07:56)
[2023-09-02] MEDS: Heparin 5,000 UNITS/ML VIAL SC SCH (07:57)
[2023-09-02] MEDS: Oxybutynin ER 5 MG TAB PO SCH (07:57)
[2023-09-02] MEDS ORDERED: Non-Formulary Item 1 EACH (Paroxetine Hcl [Paroxetine Hcl] 40 MG Tablet) PO SCH (09:00)
[2023-09-02] MEDS ORDERED: Non-Formulary Item 1 EACH (Oxybutynin Chloride [Oxybutynin Chloride Er] 10 MG Tab.Er.24) PO SCH (09:00)
[2023-09-02] MEDS ORDERED: Non-Formulary Item 1 EACH (Dextroamphetamine/Amphetamine [Adderall] 30 MG Tablet) PO SCH (09:00)
[2023-09-02] MEDS: Vancomycin 1 GM in Premix 1 BAG IVPB SCH (11:10)
[2023-09-02] MEDS: Atorvastatin Calcium 40 MG TAB PO SCH (20:24)
[2023-09-02] MEDS: clonazePAM 0.5 MG TAB PO SCH (20:25)
[2023-09-03 06:10] LABS: Hemoglobin 10.6 g/dL (14.0-18.0); Manual Diff?? YES; Mean Corpuscular HGB CONC 33.1 g/dL (32.0-36.0); Mean Corpuscular Hemoglobin 29.4 pg (27.0-31.0); Mean Corpuscular Volume 88.6 fl (78.0-98.0); Mean Platelet Volume 11.1 fL (7.4-10.4); RBC Distribution Width 14.6 % (11.5-14.5); Red Blood Cell (RBC) Count 3.61 mill/uL (4.70-6.10); White Blood Cell (WBC) Count 4.6 10x3/uL (4.8-10.8)
[2023-09-03 06:12] LABS: Platelet Count 87 10x3/uL (130-400)
[2023-09-03 06:13] LABS: Delete Auto Diff?? YES
[2023-09-03 06:32] LABS: Anion Gap 10 mmol/L (10-20); BUN (Urea Nitrogen) 14 mg/dL (8.4-25.7); Calc. Creatinine Clearance 66 mL/min (70-130); Calcium 8.5 mg/dL (7.8-10.44); Carbon Dioxide 26 mmol/L (23-31); Chloride 102 mmol/L (98-107); Estimated GFR 43; Glucose 86 mg/dL (80-115); Potassium 3.5 mmol/L (3.5-5.1); Sodium 134 mmol/L (136-145)
[2023-09-03 07:17] LABS: Band 8 % (5-11); Burr Cells SLIGHT = 2-5 cells HPF (0-1); CellaVision Operator ID LAB.KW3; Eosinophils 6 % (0-10); Large Platelets 3.9 % (0-5); Lymphocytes 20 % (21-51); Monocytes 20 % (0-10); Neutrophil 47 % (42-75); Platelet Adequacy Comment Platelets Decreased; Poikilocytosis MARKED = >30 cells HPF (0-5); Total Cell Count 102
[2023-09-03 11:26] LABS: Vancomycin, Trough 16.1 ug/mL
[2023-09-03] MEDS: Prochlorperazine Edisylate 10 MG in Sodium Chloride 0.9% 50 ML IVPB SCH (16:19)
[2023-09-03] MEDS: diphenhydrAMINE 25 MG CAP PO SCH (16:19)
[2023-09-04 06:11] LABS: Delete Auto Diff?? YES; Hematocrit 32.6 % (42.0-52.0); Hemoglobin 11.1 g/dL (14.0-18.0); Manual Diff?? YES; Mean Corpuscular Hemoglobin 29.6 pg (27.0-31.0); Mean Corpuscular Volume 86.9 fl (78.0-98.0); Mean Platelet Volume 11.2 fL (7.4-10.4); Platelet Count 106 10x3/uL (130-400); RBC Distribution Width 14.5 % (11.5-14.5); Red Blood Cell (RBC) Count 3.75 mill/uL (4.70-6.10); White Blood Cell (WBC) Count 4.8 10x3/uL (4.8-10.8)
[2023-09-04 06:34] LABS: Anion Gap 12 mmol/L (10-20); BUN (Urea Nitrogen) 19 mg/dL (8.4-25.7); Calc. Creatinine Clearance 68 mL/min (70-130); Calcium 8.6 mg/dL (7.8-10.44); Carbon Dioxide 23 mmol/L (23-31); Chloride 103 mmol/L (98-107); Estimated GFR 44; Glucose 86 mg/dL (80-115); Potassium 3.5 mmol/L (3.5-5.1); Sodium 134 mmol/L (136-145)
[2023-09-04 06:44] LABS: Band 13 % (5-11); CellaVision Operator ID LAB.CLH1; Eosinophils 12 % (0-10); Hypochromia SLIGHT = 6-15 cells HPF (0-5); Large Platelets 7.8 % (0-5); Lymphocytes 16 % (21-51); Monocytes 13 % (0-10); Neutrophil 45 % (42-75); Nucleated RBC (Manual Ct) 1 % (0); Platelet Adequacy Comment Platelets Decreased; Polychromasia SLIGHT = 2-3 cells HPF (0-2); Reactive Lymphocytes 2 % (0-10); Total Cell Count 102
[2023-09-04] MEDS ORDERED: CEFAZOLIN 2 GM in Sodium Chloride 0.9% 100 ML IVPB SCH (07:00)
[2023-09-04] MEDS ORDERED: Etomidate 40 MG (20 mL) VIAL ONE (07:17)
[2023-09-04] MEDS ORDERED: fentaNYL PF 100 MCG/2 ML SYRINGE ONE (07:17)
[2023-09-04] MEDS ORDERED: Sodium Chloride 0.9% 100 ML ONE (07:19)
[2023-09-04] MEDS ORDERED: CEFAZOLIN 2 GM VIAL ONE (07:19)
[2023-09-04] MEDS ORDERED: Lidocaine 1% PF 5 ML VIAL ONE (07:35)
[2023-09-04] MEDS ORDERED: Bupivacaine PF 0.5% 30 ML VIAL ONE (07:51)
[2023-09-04] MEDS ORDERED: ePHEDrine Sulfate 50 MG/10 ML VIAL ONE (07:53)
[2023-09-04] MEDS ORDERED: Calcium Chloride 1 GM/10 ML Abboject SYRINGE ONE (07:54)
[2023-09-04] MEDS ORDERED: Ondansetron HCl/PF 4 MG/2 ML Vial IVP PRN (08:38)
[2023-09-04] MEDS ORDERED: Promethazine HCl 25 MG/ML VIAL IM PRN (08:38)
[2023-09-04] MEDS: Atenolol 50 MG TAB PO SCH (10:19)
[2023-09-04] MEDS: Guaifenesin DM 100-10/5 ML UDCUP PO PRN (19:55)
[2023-09-04] MEDS: Senokot S 8.6-50 MG TAB PO SCH (19:59)
[2023-09-04 23:37] LABS: Vancomycin, Trough 19.3 ug/mL
[2023-09-05 05:48] LABS: Anion Gap 10 mmol/L (10-20); BUN (Urea Nitrogen) 23 mg/dL (8.4-25.7); Calc. Creatinine Clearance 64 mL/min (70-130); Calcium 8.2 mg/dL (7.8-10.44); Carbon Dioxide 25 mmol/L (23-31); Chloride 104 mmol/L (98-107); Estimated GFR 41; Glucose 109 mg/dL (80-115); Potassium 3.5 mmol/L (3.5-5.1); Sodium 135 mmol/L (136-145)
[2023-09-05] MEDS: Icosapent Ethyl 1 GM CAPSULE PO SCH (08:02)
[2023-09-05] MEDS: Fioricet 325/50/40 mg Tablet PO PRN (11:03)
[2023-09-05] MEDS ORDERED: guaiFENesin 200 MG TAB PO PRN (14:53)
[2023-09-05] MEDS: Polyethylene Glycol 3350 17 GM Packet PO SCH (15:10)
[2023-09-05] MEDS: Ipratropium/Albuterol 3 ML NEB NEB SCH (18:56)
[2023-09-06 04:28] LABS: #Eosinphils 0.5 thou/uL (0.0-0.7); #Monocytes 0.7 thou/uL (0.11-0.59); #Neutrophils 2.4 thou/uL (1.40-6.50); %Basophils 0.4 % (0.0-1.0); %Eosinophils 9.4 % (0.0-10.0); %Lymphocytes 29.7 % (21.0-51.0); %Monocytes 13.7 % (0.0-10.0); %Neutrophils 45.7 % (42.0-75.0); Hematocrit 31.9 % (42.0-52.0); Hemoglobin 10.7 g/dL (14.0-18.0); Mean Corpuscular HGB CONC 33.5 g/dL (32.0-36.0); Mean Corpuscular Hemoglobin 29.8 pg (27.0-31.0); Mean Corpuscular Volume 88.9 fl (78.0-98.0); Mean Platelet Volume 10.3 fL (7.4-10.4); Platelet Count 126 10x3/uL (130-400); RBC Distribution Width 14.5 % (11.5-14.5); Red Blood Cell (RBC) Count 3.59 mill/uL (4.70-6.10); White Blood Cell (WBC) Count 5.3 10x3/uL (4.8-10.8)
[2023-09-06 04:53] LABS: Anion Gap 11 mmol/L (10-20); BUN (Urea Nitrogen) 23 mg/dL (8.4-25.7); Calc. Creatinine Clearance 74 mL/min (70-130); Calcium 8.2 mg/dL (7.8-10.44); Carbon Dioxide 24 mmol/L (23-31); Chloride 105 mmol/L (98-107); Estimated GFR 49; Glucose 101 mg/dL (80-115); Potassium 3.9 mmol/L (3.5-5.1); Sodium 136 mmol/L (136-145)
[2023-09-06] MEDS: Polyethylene Glycol 3350 17 GM Packet PO SCH (09:37)
[2023-09-06] MEDS ORDERED: Ipratropium/Albuterol 3 ML NEB NEB PRN (17:01)
[2023-09-06] MEDS: methylPREDNISolone Sod Succ 40 MG VIAL IVP SCH (20:27)
[2023-09-07 14:37] LABS: Vancomycin, Trough 21.8 ug/mL
[2023-09-07] MEDS: Vancomycin HCl 750 MG in Sodium Chloride 0.9% 250 ML 250 ML IVPB SCH (15:12)
[2023-09-07 17:58] LABS: #Monocytes 0.3 thou/uL (0.11-0.59); #Neutrophils 7.9 thou/uL (1.40-6.50); %Basophils 0.2 % (0.0-1.0); %Lymphocytes 8.5 % (21.0-51.0); %Monocytes 3.7 % (0.0-10.0); %Neutrophils 86.3 % (42.0-75.0); Hematocrit 32.1 % (42.0-52.0); Mean Corpuscular HGB CONC 34.3 g/dL (32.0-36.0); Mean Corpuscular Hemoglobin 29.7 pg (27.0-31.0); Mean Corpuscular Volume 86.8 fl (78.0-98.0); Mean Platelet Volume 10.5 fL (7.4-10.4); Platelet Count 138 10x3/uL (130-400); RBC Distribution Width 13.9 % (11.5-14.5); White Blood Cell (WBC) Count 9.2 10x3/uL (4.8-10.8)
[2023-09-07 18:29] LABS: Anion Gap 14 mmol/L (10-20); BUN (Urea Nitrogen) 23 mg/dL (8.4-25.7); Calc. Creatinine Clearance 77 mL/min (70-130); Calcium 8.7 mg/dL (7.8-10.44); Carbon Dioxide 22 mmol/L (23-31); Chloride 104 mmol/L (98-107); Estimated GFR 51; Glucose 177 mg/dL (80-115); Potassium 4.5 mmol/L (3.5-5.1)
[2023-09-07 18:35] LABS: Sodium 135 mmol/L (136-145)
[2023-09-09] MEDS ORDERED: Ipratropium/Albuterol 3 ML NEB ONE (01:17)
[2023-09-09] MEDS: methylPREDNISolone Sod Succ 40 MG VIAL IVP SCH (08:52)
[2023-09-10] MEDS: Fioricet 325/50/40 mg Tablet PO PRN (00:15)
[2023-09-10 09:25] LABS: #Eosinphils 0.1 thou/uL (0.0-0.7); #Monocytes 0.5 thou/uL (0.11-0.59); #Neutrophils 6.3 thou/uL (1.40-6.50); %Basophils 0.3 % (0.0-1.0); %Eosinophils 0.8 % (0.0-10.0); %Lymphocytes 26.4 % (21.0-51.0); %Monocytes 5.6 % (0.0-10.0); %Neutrophils 65.1 % (42.0-75.0); Hematocrit 34.2 % (42.0-52.0); Hemoglobin 11.2 g/dL (14.0-18.0); Mean Corpuscular HGB CONC 32.7 g/dL (32.0-36.0); Mean Corpuscular Hemoglobin 29.1 pg (27.0-31.0); Mean Corpuscular Volume 88.8 fl (78.0-98.0); Mean Platelet Volume 10.1 fL (7.4-10.4); Platelet Count 136 10x3/uL (130-400); RBC Distribution Width 14.5 % (11.5-14.5); Red Blood Cell (RBC) Count 3.85 mill/uL (4.70-6.10); White Blood Cell (WBC) Count 9.6 10x3/uL (4.8-10.8)
[2023-09-10 09:57] LABS: Anion Gap 12 mmol/L (10-20); BUN (Urea Nitrogen) 33 mg/dL (8.4-25.7); Calc. Creatinine Clearance 75 mL/min (70-130); Calcium 8.5 mg/dL (7.8-10.44); Carbon Dioxide 28 mmol/L (23-31); Chloride 103 mmol/L (98-107); Estimated GFR 50; Glucose 123 mg/dL (80-115); Potassium 3.7 mmol/L (3.5-5.1); Sodium 139 mmol/L (136-145)
[2023-09-11] MEDS: Levothyroxine Sodium 88 MCG TAB PO SCH (05:21)
[2023-09-11] MEDS: predniSONE 20 MG TAB PO SCH (08:50)
[2023-09-12 15:24] VITALS: BP 124/81; TEMP 98.3
== END 2023-09-12 16:00 | DRG 616 ==
LOC: ERS 19:28 → T4-A 23:27
PROVIDERS: ADMIT Internal Medicine; ATTEND Internal Medicine
PROC: 0Y6R0Z3 Detachment at Right 2nd Toe, Low, Open Approach (ICD-10-PCS; principal; 2023-09-04)
PROC: 3E033XZ Introduction of Vasopressor into Peripheral Vein, Percutaneous Approach (ICD-10-PCS; 2023-09-04)
DX: E11.69 Type 2 diabetes mellitus with other specified complication (principal); J96.91 Respiratory failure, unspecified with hypoxia; I13.0 Hypertensive heart and chronic kidney disease with heart failure and stage 1 through stage 4 chronic kidney disease, or unspecified chronic kidney disease; I50.22 Chronic systolic (congestive) heart failure; M86.8X7 Other osteomyelitis, ankle and foot; J21.0 Acute bronchiolitis due to respiratory syncytial virus; I25.10 Atherosclerotic heart disease of native coronary artery without angina pectoris; E78.5 Hyperlipidemia, unspecified; F41.8 Other specified anxiety disorders; E11.22 Type 2 diabetes mellitus with diabetic chronic kidney disease; T81.89XA Other complications of procedures, not elsewhere classified, initial encounter; M10.9 Gout, unspecified; N18.4 Chronic kidney disease, stage 4 (severe); E03.9 Hypothyroidism, unspecified; L08.9 Local infection of the skin and subcutaneous tissue, unspecified; I48.91 Unspecified atrial fibrillation; G43.909 Migraine, unspecified, not intractable, without status migrainosus; F17.210 Nicotine dependence, cigarettes, uncomplicated; N17.9 Acute kidney failure, unspecified; Z11.52 Encounter for screening for COVID-19; Z79.890 Hormone replacement therapy; Z79.899 Other long term (current) drug therapy; Z95.1 Presence of aortocoronary bypass graft; Z98.890 Other specified postprocedural states; Z90.49 Acquired absence of other specified parts of digestive tract; Z89.411 Acquired absence of right great toe
CPT/HCPCS: 36415; 36416; 71045; 71046; 80048; 80053; 80202; 80307; 82565; 83735; 83880; 84443; 84484; 84550; 85025; 86140; 87040; 87070; 87077; 87186; 87205; 87633; 93005; 94640; 96361; 96365; 96367; 97139; J0665; J0780; J1644; J2543; J2920; J3370; J3370-JW; J3490; J7050; J7512; J7620

== ENCOUNTER 2024-01-21 15:23 | Inpatient (IN) | payer MEDICARE ==
[2024-01-21 16:48] LABS: ALT (SGPT) 34 U/L (8-55); AST (SGOT) 34 U/L (5-34); Albumin 3.9 g/dL (3.4-4.8); Alkaline Phosphatase 106 U/L (40-110); Anion Gap 14 mmol/L (10-20); BUN (Urea Nitrogen) 26 mg/dL (8.4-25.7); Bilirubin, Total 0.4 mg/dL (0.2-1.2); Calc. Creatinine Clearance 0 mL/min (70-130); Calcium 8.9 mg/dL (7.8-10.44); Carbon Dioxide 21 mmol/L (23-31); Chloride 101 mmol/L (98-107); Estimated GFR 47; Globulin 2.9 g/dL (2.4-3.5); Glucose 121 mg/dL (80-115); Potassium 4.1 mmol/L (3.5-5.1); Protein, Total 6.8 g/dL (5.8-8.1); Sodium 132 mmol/L (136-145)
[2024-01-21 16:51] LABS: #Basophils 0.03 10x3/uL (0.0-0.2); %Basophils 0.4 % (0.0-1.0); %Eosinophils 4.3 % (0.0-10.0); %Lymphocytes 16.2 % (21.0-51.0); %Monocytes 11.9 % (0.0-10.0); Hematocrit 35.7 % (42.0-52.0); Hemoglobin 12.2 g/dL (14.0-18.0); Mean Corpuscular HGB CONC 34.2 g/dL (32.0-36.0); Mean Corpuscular Hemoglobin 29.8 pg (27.0-31.0); Mean Corpuscular Volume 87.1 fL (78.0-98.0); Mean Platelet Volume 10.6 fL (7.4-10.4); Platelet Count 128 10x3/uL (130-400); RBC Distribution Width 13.5 % (11.5-14.5)
[2024-01-21 16:54] LABS: Troponin I Less than 0.010 ng/mL (< 0.028)
[2024-01-21] MEDS ORDERED: Sodium Chloride 0.9% 100 ML ONE (17:25)
[2024-01-21] MEDS ORDERED: Cefepime 2 GM VIAL ONE (17:25)
[2024-01-21 17:45] LABS: Bacteria/HPF None Seen HPF (None Seen); Bilirubin Negative (Negative); Blood, Urine Negative (Negative); CAUTI Indications for Culture Alt mental st,lethar; Clarity Clear (Clear); Glucose, Urine (Dipstick) Normal (Negative); Ketone, Urine Negative (Negative); Leukocyte Negative Leu/uL (Negative); Nitrite Negative (Negative); Protein, Urine (Dipstick) Negative (Neg-Trace); RBC/HPF 0-3 HPF (0-3); Specific Gravity, Urine 1.009 (1.002-1.036); Squamous Epithelial None Seen HPF (0-3); Urobilinogen Normal mg/dL (Less than 2); WBC/HPF None Seen HPF (0-3); pH, Urine 6.5 (5.0-9.0)
[2024-01-21 17:47] LABS: Urine Culture Reflex No No
[2024-01-21] MEDS ORDERED: Dextrose 50% Abboject 50 ML SYRINGE SLOW IVP PRN (19:37)
[2024-01-21] MEDS ORDERED: Insulin Regular, Human 100 UNIT/ML 10 ML VIAL SC PRN ×2 (19:37)
[2024-01-21] MEDS ORDERED: Glucagon 1 MG/ML KIT IM PRN (19:37)
[2024-01-21] MEDS ORDERED: Dextrose 5% in Water 1,000 ML IV PRN (19:37)
[2024-01-21] MEDS ORDERED: Ondansetron PF 4 MG/2 ML Vial IVP PRN (19:37)
[2024-01-21 22:32] VITALS: BMI 29.5
[2024-01-21] MEDS: Vancomycin (BATCH) 2.5 GM in Premix 1 BAG IVPB SCH (23:33)
[2024-01-21] MEDS: Acetaminophen 325 MG TAB PO PRN (23:36)
[2024-01-22] MEDS: Acetaminophen 325 MG TAB PO SCH (00:15)
[2024-01-22 05:23] LABS: #Basophils 0.03 10x3/uL (0.0-0.2); %Basophils 0.4 % (0.0-1.0); %Eosinophils 4.4 % (0.0-10.0); %Monocytes 14.1 % (0.0-10.0); Hemoglobin 11.5 g/dL (14.0-18.0); Mean Corpuscular HGB CONC 34.8 g/dL (32.0-36.0); Mean Corpuscular Hemoglobin 30.4 pg (27.0-31.0); Mean Corpuscular Volume 87.3 fL (78.0-98.0); Mean Platelet Volume 10.2 fL (7.4-10.4); Platelet Count 118 10x3/uL (130-400); RBC Distribution Width 13.2 % (11.5-14.5); Red Blood Cell (RBC) Count 3.78 mill/uL (4.70-6.10)
[2024-01-22 05:28] LABS: Hemoglobin A1c 5.7 % (4.0-6.0)
[2024-01-22 05:43] LABS: Vancomycin, Random 20.3 ug/mL (See Comment)
[2024-01-22 05:50] LABS: Anion Gap 13 mmol/L (10-20); BUN (Urea Nitrogen) 21 mg/dL (8.4-25.7); Calc. Creatinine Clearance 80 mL/min (70-130); Calcium 8.3 mg/dL (7.8-10.44); Carbon Dioxide 20 mmol/L (23-31); Chloride 104 mmol/L (98-107); Estimated GFR 54; Glucose 90 mg/dL (80-115); Sodium 133 mmol/L (136-145)
[2024-01-22] MEDS: Cefepime 1 GM in Sodium Chloride 0.9% 100 ML IVPB SCH (05:58)
[2024-01-22 14:11] VITALS: BMI 29.5
[2024-01-22] MEDS ORDERED: Atorvastatin Calcium 40 MG TAB PO SCH (21:00)
[2024-01-22] MEDS ORDERED: Lisinopril 5 MG TAB PO SCH (21:00)
[2024-01-22] MEDS: Topiramate 25 MG TAB PO SCH (22:05)
[2024-01-22] MEDS: QUEtiapine 25 MG TAB PO SCH (22:05)
[2024-01-22] MEDS: Pregabalin 50 MG CAP PO SCH (22:05)
[2024-01-22] MEDS: Atorvastatin Calcium 40 MG TAB PO SCH (22:06)
[2024-01-22] MEDS: Atenolol 50 MG TAB PO SCH (22:06)
[2024-01-22] MEDS: Vancomycin (BATCH) 1.75 GM in Premix 1 BAG IVPB SCH (22:33)
[2024-01-23 05:14] LABS: #Basophils 0.03 10x3/uL (0.0-0.2); %Basophils 0.5 % (0.0-1.0); %Eosinophils 3.7 % (0.0-10.0); %Lymphocytes 20.3 % (21.0-51.0); %Monocytes 13.7 % (0.0-10.0); %Neutrophils 61.5 % (42.0-75.0); Hematocrit 34.7 % (42.0-52.0); Hemoglobin 11.8 g/dL (14.0-18.0); Mean Corpuscular Hemoglobin 30.7 pg (27.0-31.0); Mean Corpuscular Volume 90.4 fL (78.0-98.0); Mean Platelet Volume 10.4 fL (7.4-10.4); Platelet Count 111 10x3/uL (130-400); RBC Distribution Width 13.5 % (11.5-14.5); Red Blood Cell (RBC) Count 3.84 mill/uL (4.70-6.10)
[2024-01-23 05:27] LABS: Anion Gap 12 mmol/L (10-20); BUN (Urea Nitrogen) 15 mg/dL (8.4-25.7); Calc. Creatinine Clearance 81 mL/min (70-130); Calcium 8.8 mg/dL (7.8-10.44); Carbon Dioxide 18 mmol/L (23-31); Chloride 108 mmol/L (98-107); Estimated GFR 55; Glucose 112 mg/dL (80-115); Potassium 3.6 mmol/L (3.5-5.1); Sodium 134 mmol/L (136-145)
[2024-01-23] MEDS ORDERED: Levothyroxine Sodium 88 MCG TAB PO SCH ×2 (06:00→09:00)
[2024-01-23] MEDS: Oxybutynin ER 5 MG TAB PO SCH (09:21)
[2024-01-23] MEDS: Allopurinol 100 MG TAB PO SCH (09:21)
[2024-01-23] MEDS: PARoxetine 20 MG TAB PO SCH (09:22)
[2024-01-23] MEDS: Fluticasone Propionate Nasal Spray 16 gm Bottle NASAL SCH (09:22)
[2024-01-23] MEDS: Fioricet 325/50/40 mg Tablet PO PRN (15:16)
[2024-01-24 05:41] LABS: #Basophils 0.03 10x3/uL (0.0-0.2); %Basophils 0.5 % (0.0-1.0); %Eosinophils 4.3 % (0.0-10.0); %Lymphocytes 22.5 % (21.0-51.0); %Monocytes 11.3 % (0.0-10.0); %Neutrophils 61.2 % (42.0-75.0); Hematocrit 34.4 % (42.0-52.0); Hemoglobin 11.8 g/dL (14.0-18.0); Mean Corpuscular HGB CONC 34.3 g/dL (32.0-36.0); Mean Corpuscular Hemoglobin 30.3 pg (27.0-31.0); Mean Corpuscular Volume 88.4 fL (78.0-98.0); Mean Platelet Volume 10.8 fL (7.4-10.4); Platelet Count 105 10x3/uL (130-400); RBC Distribution Width 13.9 % (11.5-14.5); Red Blood Cell (RBC) Count 3.89 mill/uL (4.70-6.10)
[2024-01-24 05:42] LABS: Vancomycin, Random 26.8 ug/mL (See Comment)
[2024-01-24 05:43] LABS: Anion Gap 13 mmol/L (10-20); BUN (Urea Nitrogen) 16 mg/dL (8.4-25.7); Calc. Creatinine Clearance 86 mL/min (70-130); Carbon Dioxide 19 mmol/L (23-31); Chloride 110 mmol/L (98-107); Estimated GFR 59; Glucose 85 mg/dL (80-115); Sodium 138 mmol/L (136-145)
[2024-01-24] MEDS ORDERED: Bupivacaine PF 0.5% 30 ML VIAL ONE (10:36)
[2024-01-24] MEDS ORDERED: Etomidate 40 MG (20 mL) VIAL ONE (10:44)
[2024-01-24] MEDS ORDERED: PHENYLEPHRINE-NS 100 MCG/ML 10 ML SYRINGE ONE (10:47)
[2024-01-24] MEDS ORDERED: Glycopyrrolate 0.2 MG/ML 5 ML SYRINGE ONE (11:06)
[2024-01-24] MEDS ORDERED: ePHEDrine Sulfate 50 MG/10 ML VIAL ONE (11:06)
[2024-01-24] MEDS ORDERED: Dextrose 50% Abboject 50 ML SYRINGE ONE (11:38)
[2024-01-25] MEDS: Ondansetron ODT 4 MG TAB PO PRN (14:43)
[2024-01-25] MEDS: Calcium Carbonate 500 MG ChewTAB PO PRN (23:55)
[2024-01-26] MEDS: NIFEdipine XL 30 MG ER.TAB PO SCH (14:08)
[2024-01-26] MEDS ORDERED: Milk Of Magnesia 30 ML UDCUP PO PRN (17:39)
[2024-01-27] MEDS: clonazePAM 1 MG TAB PO PRN (02:00)
[2024-01-27 06:42] LABS: #Basophils 0.03 10x3/uL (0.0-0.2); %Basophils 0.3 % (0.0-1.0); %Eosinophils 3.8 % (0.0-10.0); %Lymphocytes 21.3 % (21.0-51.0); %Monocytes 12.4 % (0.0-10.0); Hematocrit 34.5 % (42.0-52.0); Mean Corpuscular HGB CONC 34.8 g/dL (32.0-36.0); Mean Corpuscular Hemoglobin 29.6 pg (27.0-31.0); Mean Corpuscular Volume 85.2 fL (78.0-98.0); Mean Platelet Volume 10.9 fL (7.4-10.4); Platelet Count 128 10x3/uL (130-400); RBC Distribution Width 13.3 % (11.5-14.5); Red Blood Cell (RBC) Count 4.05 mill/uL (4.70-6.10)
[2024-01-27 07:26] LABS: Anion Gap 16 mmol/L (10-20); BUN (Urea Nitrogen) 14 mg/dL (8.4-25.7); Calc. Creatinine Clearance 94 mL/min (70-130); Calcium 9.3 mg/dL (7.8-10.44); Carbon Dioxide 20 mmol/L (23-31); Chloride 101 mmol/L (98-107); Estimated GFR 66; Glucose 85 mg/dL (80-115); Potassium 3.2 mmol/L (3.5-5.1); Sodium 134 mmol/L (136-145)
[2024-01-27] MEDS: NIFEdipine XL 30 MG ER.TAB PO SCH (08:58)
[2024-01-27] MEDS: Potassium Chloride 20 MEQ TAB PO SCH (15:57)
[2024-01-27 16:35] VITALS: BP 128/80; TEMP 98.2
== END 2024-01-27 18:19 | disposition home health service (06) | DRG 617 ==
LOC: ERS 15:23 → MSONC 18:51
PROVIDERS: ADMIT Internal Medicine; ATTEND Hospitalist
PROC: 0Y6T0Z1 Detachment at Right 3rd Toe, High, Open Approach (ICD-10-PCS; principal; 2024-01-24)
DX: E11.69 Type 2 diabetes mellitus with other specified complication (principal); G93.40 Encephalopathy, unspecified; M86.8X7 Other osteomyelitis, ankle and foot; I13.0 Hypertensive heart and chronic kidney disease with heart failure and stage 1 through stage 4 chronic kidney disease, or unspecified chronic kidney disease; I50.22 Chronic systolic (congestive) heart failure; L03.031 Cellulitis of right toe; E11.621 Type 2 diabetes mellitus with foot ulcer; I48.0 Paroxysmal atrial fibrillation; I95.9 Hypotension, unspecified; E78.5 Hyperlipidemia, unspecified; B95.8 Unspecified staphylococcus as the cause of diseases classified elsewhere; B96.5 Pseudomonas (aeruginosa) (mallei) (pseudomallei) as the cause of diseases classified elsewhere; E11.22 Type 2 diabetes mellitus with diabetic chronic kidney disease; N18.31 Chronic kidney disease, stage 3a; L97.519 Non-pressure chronic ulcer of other part of right foot with unspecified severity; F41.9 Anxiety disorder, unspecified; F90.9 Attention-deficit hyperactivity disorder, unspecified type; Z79.899 Other long term (current) drug therapy; Z79.890 Hormone replacement therapy; Z95.1 Presence of aortocoronary bypass graft; Z90.49 Acquired absence of other specified parts of digestive tract; Z98.890 Other specified postprocedural states; Z89.411 Acquired absence of right great toe; Z87.891 Personal history of nicotine dependence
CPT/HCPCS: 36415; 36416; 70450; 71045; 80048; 80053; 80202; 81001; 83036; 83605; 83880; 84484; 85025; 86141; 87040; 87070; 87076; 87077; 87186; 87205; 93005; 96374; 96375; 97139; J0665; J0692; J3370; J3490; J7999; Q0162

== ENCOUNTER 2024-04-22 14:52 | Inpatient (IN) | payer MEDICARE ==
[2024-04-22 17:03] LABS: #Basophils 0.03 10x3/uL (0.0-0.2); %Basophils 0.4 % (0.0-1.0); %Eosinophils 3.5 % (0.0-10.0); %Lymphocytes 18.8 % (21.0-51.0); %Monocytes 8.7 % (0.0-10.0); %Neutrophils 68.3 % (42.0-75.0); Hematocrit 33.3 % (42.0-52.0); Hemoglobin 11.2 g/dL (14.0-18.0); Mean Corpuscular HGB CONC 33.6 g/dL (32.0-36.0); Mean Corpuscular Hemoglobin 30.7 pg (27.0-31.0); Mean Corpuscular Volume 91.2 fL (78.0-98.0); Mean Platelet Volume 10.5 fL (7.4-10.4); Platelet Count 122 10x3/uL (130-400); RBC Distribution Width 14.3 % (11.5-14.5); Red Blood Cell (RBC) Count 3.65 mill/uL (4.70-6.10)
[2024-04-22 17:10] LABS: Lipase 28 U/L (8-78)
[2024-04-22 17:12] LABS: Acetaminophen Less than 10 mcg/mL (Less than 10); Alcohol Less than 10.0 mg/dL (Less than 10); Salicylate Less than 8.0 mg/dL (Less than 8.0); Troponin I Less than 0.010 ng/mL (< 0.028)
[2024-04-22 17:13] LABS: ALT (SGPT) 22 U/L (8-55); AST (SGOT) 31 U/L (5-34); Albumin 3.6 g/dL (3.4-4.8); Alkaline Phosphatase 87 U/L (40-110); Anion Gap 13 mmol/L (10-20); BUN (Urea Nitrogen) 21 mg/dL (8.4-25.7); Bilirubin, Total 0.4 mg/dL (0.2-1.2); Calc. Creatinine Clearance 0 mL/min (70-130); Calcium 8.5 mg/dL (7.8-10.44); Carbon Dioxide 18 mmol/L (23-31); Chloride 97 mmol/L (98-107); Estimated GFR 49; Globulin 2.9 g/dL (2.4-3.5); Glucose 92 mg/dL (83-110); Potassium 3.8 mmol/L (3.5-5.1); Protein, Total 6.5 g/dL (5.8-8.1); Sodium 124 mmol/L (136-145)
[2024-04-22 17:26] LABS: Bacteria/HPF None Seen HPF (None Seen); Bilirubin Negative (Negative); Blood, Urine Negative (Negative); CAUTI Indications for Culture Alt mental st,lethar; Clarity Clear (Clear); Glucose, Urine (Dipstick) Normal (Negative); Ketone, Urine Negative (Negative); Leukocyte Negative Leu/uL (Negative); Nitrite Negative (Negative); Protein, Urine (Dipstick) Negative (Neg-Trace); RBC/HPF None Seen HPF (0-3); Specific Gravity, Urine 1.008 (1.002-1.036); Squamous Epithelial None Seen HPF (0-3); Urobilinogen Normal mg/dL (Less than 2); WBC/HPF 0-3 HPF (0-3)
[2024-04-22 17:30] LABS: Amphetamine Detected (NotDetected); Barbiturates Screen Detected (NotDetected); Benzodiazepine Screen Not Detected (NotDetected); Cocaine Metabolite Screen Not Detected (NotDetected); Methadone Not Detected (NotDetected); Methamphetamine Not Detected (NotDetected); Opiate Screen Not Detected (NotDetected); Oxycodone Screen Not Detected (NotDetected); Phencyclidine (PCP) Not Detected (NotDetected); THC/Cannabinoid Screen Not Detected (NotDetected); Tricyclic Screen Not Detected (NotDetected); Urine Culture Reflex No No
[2024-04-22 17:31] LABS: Anisocytosis SLIGHT = 6-15 cells HPF (0-5); Burr Cells SLIGHT = 2-5 cells HPF (0-1); Macrocytosis SLIGHT = 6-15 cells HPF (0-5); Platelet Adequacy Comment Platelets Decreased
[2024-04-22] MEDS ORDERED: Ondansetron PF 4 MG/2 ML Vial IVP PRN (20:50)
[2024-04-22] MEDS ORDERED: traMADol HCl 50 MG TAB PO PRN (20:50)
[2024-04-22] MEDS ORDERED: Ondansetron ODT 4 MG TAB PO PRN (20:50)
[2024-04-22] MEDS ORDERED: Glucagon 1 MG/ML KIT IM PRN (21:40)
[2024-04-22] MEDS ORDERED: Dextrose 5% in Water 1,000 ML IV PRN (21:40)
[2024-04-22] MEDS ORDERED: Insulin Lispro 100 UNIT/ML 10 ML VIAL SC PRN ×2 (21:40)
[2024-04-22] MEDS ORDERED: Dextrose 50% Abboject 50 ML SYRINGE SLOW IVP PRN (21:40)
[2024-04-22 22:05] LABS: Hemoglobin A1c 5.3 % (4.0-6.0)
[2024-04-22 22:11] LABS: Albumin 3.6 g/dL (3.4-4.8); Anion Gap 13 mmol/L (10-20); BUN (Urea Nitrogen) 21 mg/dL (8.4-25.7); BUN/Creatinine Ratio 13.82; Calc. Creatinine Clearance 0 mL/min (70-130); Calcium 8.4 mg/dL (7.8-10.44); Carbon Dioxide 16 mmol/L (23-31); Chloride 99 mmol/L (98-107); Estimated GFR 49; Glucose 84 mg/dL (83-110); Phosphorus 2.2 mg/dL (2.3-4.7); Sodium 124 mmol/L (136-145)
[2024-04-22 23:41] VITALS: BMI 32.7
[2024-04-22] MEDS: Sodium Chloride 0.9% 1,000 ML IV SCH ×4 (23:42→23:57)
[2024-04-23] MEDS: Sodium Phosphate 15 MMOL in Sodium Chloride 0.9% 250 ML 250 ML IVPB SCH (02:28)
[2024-04-23 04:51] LABS: ALT (SGPT) 21 U/L (8-55); AST (SGOT) 31 U/L (5-34); Albumin 3.5 g/dL (3.4-4.8); Alkaline Phosphatase 83 U/L (40-110); Anion Gap 12 mmol/L (10-20); BUN (Urea Nitrogen) 16 mg/dL (8.4-25.7); Bilirubin, Total 0.5 mg/dL (0.2-1.2); Calc. Creatinine Clearance 92 mL/min (70-130); Calcium 8.6 mg/dL (7.8-10.44); Carbon Dioxide 18 mmol/L (23-31); Chloride 103 mmol/L (98-107); Estimated GFR 57; Globulin 2.7 g/dL (2.4-3.5); Glucose 88 mg/dL (83-110); Potassium 3.6 mmol/L (3.5-5.1); Protein, Total 6.2 g/dL (5.8-8.1); Sodium 129 mmol/L (136-145)
[2024-04-23] MEDS: Levothyroxine Sodium 88 MCG TAB PO SCH (06:02)
[2024-04-23 06:10] LABS: #Basophils Less than 0.03 10x3/uL (0.0-0.2); %Basophils 0.2 % (0.0-1.0); %Monocytes 12.3 % (0.0-10.0); %Neutrophils 55.3 % (42.0-75.0); Hemoglobin 11.7 g/dL (14.0-18.0); Mean Corpuscular HGB CONC 35.5 g/dL (32.0-36.0); Mean Corpuscular Hemoglobin 30.5 pg (27.0-31.0); Mean Corpuscular Volume 86.2 fL (78.0-98.0); Platelet Count 97 10x3/uL (130-400); RBC Distribution Width 14.2 % (11.5-14.5); Red Blood Cell (RBC) Count 3.83 mill/uL (4.70-6.10)
[2024-04-23] MEDS: Enoxaparin 40 MG (0.4 mL) SYRINGE SC SCH (09:13)
[2024-04-23] MEDS: Allopurinol 100 MG TAB PO SCH (09:14)
[2024-04-23] MEDS: Fluticasone Propionate Nasal Spray 16 gm Bottle NASAL SCH (09:14)
[2024-04-23] MEDS: Meclizine HCl 12.5 MG TAB PO SCH (09:14)
[2024-04-23] MEDS: (Dextroamphetamine/Amphetamine [Adderall] 30 MG Tablet) PO SCH (11:40)
[2024-04-23] MEDS: clonazePAM 1 MG TAB PO SCH ×2 (12:21→20:47)
[2024-04-23 17:27] LABS: Anion Gap 13 mmol/L (10-20); BUN (Urea Nitrogen) 16 mg/dL (8.4-25.7); Calc. Creatinine Clearance 71 mL/min (70-130); Carbon Dioxide 21 mmol/L (23-31); Chloride 106 mmol/L (98-107); Estimated GFR 52; Glucose 106 mg/dL (83-110); Potassium 4.1 mmol/L (3.5-5.1); Sodium 136 mmol/L (136-145)
[2024-04-23] MEDS: Icosapent Ethyl 1 GM CAPSULE PO SCH (17:54)
[2024-04-23] MEDS: Zolpidem Tartrate 5 MG TAB PO SCH (20:47)
[2024-04-23] MEDS ORDERED: Atorvastatin Calcium 40 MG TAB PO SCH (21:00)
[2024-04-23 23:14] LABS: Anion Gap 12 mmol/L (10-20); BUN (Urea Nitrogen) 15 mg/dL (8.4-25.7); Calc. Creatinine Clearance 65 mL/min (70-130); Carbon Dioxide 17 mmol/L (23-31); Chloride 108 mmol/L (98-107); Estimated GFR 46; Glucose 114 mg/dL (83-110); Potassium 3.8 mmol/L (3.5-5.1); Sodium 133 mmol/L (136-145)
[2024-04-23] MEDS: Acetaminophen 325 MG TAB PO PRN (23:40)
[2024-04-24 05:30] LABS: Anion Gap 11 mmol/L (10-20); BUN (Urea Nitrogen) 14 mg/dL (8.4-25.7); CK (CPK) 320 U/L (30-200); Calc. Creatinine Clearance 67 mL/min (70-130); Calcium 9.3 mg/dL (7.8-10.44); Carbon Dioxide 20 mmol/L (23-31); Chloride 110 mmol/L (98-107); Estimated GFR 49; Glucose 101 mg/dL (83-110); Potassium 3.9 mmol/L (3.5-5.1); Sodium 137 mmol/L (136-145)
[2024-04-24] MEDS: Lisinopril 2.5 MG TAB PO SCH (09:07)
[2024-04-24] MEDS: Atenolol 25 MG TAB PO SCH (09:09)
[2024-04-24] MEDS: Sodium Chloride 0.9% 1,000 ML IV SCH (16:49)
[2024-04-25 04:52] LABS: #Basophils 0.04 10x3/uL (0.0-0.2); %Basophils 0.4 % (0.0-1.0); %Eosinophils 2.5 % (0.0-10.0); %Monocytes 11.6 % (0.0-10.0); %Neutrophils 68.3 % (42.0-75.0); Hematocrit 35.2 % (42.0-52.0); Hemoglobin 12.1 g/dL (14.0-18.0); Mean Corpuscular HGB CONC 34.4 g/dL (32.0-36.0); Mean Corpuscular Hemoglobin 30.9 pg (27.0-31.0); Mean Corpuscular Volume 89.8 fL (78.0-98.0); Mean Platelet Volume 10.8 fL (7.4-10.4); Platelet Count 149 10x3/uL (130-400); RBC Distribution Width 14.8 % (11.5-14.5); Red Blood Cell (RBC) Count 3.92 mill/uL (4.70-6.10)
[2024-04-25 05:21] LABS: ALT (SGPT) 31 U/L (8-55); AST (SGOT) 41 U/L (5-34); Albumin 4.2 g/dL (3.4-4.8); Alkaline Phosphatase 92 U/L (40-110); Anion Gap 13 mmol/L (10-20); BUN (Urea Nitrogen) 13 mg/dL (8.4-25.7); Bilirubin, Total 0.6 mg/dL (0.2-1.2); Calc. Creatinine Clearance 70 mL/min (70-130); Calcium 9.6 mg/dL (7.8-10.44); Carbon Dioxide 18 mmol/L (23-31); Chloride 107 mmol/L (98-107); Estimated GFR 52; Globulin 3.2 g/dL (2.4-3.5); Glucose 105 mg/dL (83-110); Potassium 3.8 mmol/L (3.5-5.1); Protein, Total 7.4 g/dL (5.8-8.1); Sodium 134 mmol/L (136-145)
[2024-04-25] MEDS: Fioricet 325/50/40 mg Tablet PO PRN (17:17)
[2024-04-25 17:51] LABS: Troponin I Less than 0.010 ng/mL (< 0.028)
[2024-04-26 05:42] LABS: ALT (SGPT) 23 U/L (8-55); AST (SGOT) 29 U/L (5-34); Alkaline Phosphatase 75 U/L (40-110); Anion Gap 11 mmol/L (10-20); BUN (Urea Nitrogen) 14 mg/dL (8.4-25.7); Bilirubin, Total 0.6 mg/dL (0.2-1.2); Calc. Creatinine Clearance 74 mL/min (70-130); Calcium 8.8 mg/dL (7.8-10.44); Carbon Dioxide 21 mmol/L (23-31); Chloride 109 mmol/L (98-107); Estimated GFR 54; Glucose 87 mg/dL (83-110); Potassium 3.4 mmol/L (3.5-5.1); Sodium 138 mmol/L (136-145)
[2024-04-26 05:44] LABS: #Basophils 0.04 10x3/uL (0.0-0.2); %Basophils 0.7 % (0.0-1.0); %Eosinophils 4.4 % (0.0-10.0); %Lymphocytes 27.1 % (21.0-51.0); %Monocytes 11.3 % (0.0-10.0); %Neutrophils 56.3 % (42.0-75.0); Hematocrit 32.6 % (42.0-52.0); Hemoglobin 10.9 g/dL (14.0-18.0); Mean Corpuscular HGB CONC 33.4 g/dL (32.0-36.0); Mean Corpuscular Hemoglobin 30.4 pg (27.0-31.0); Mean Corpuscular Volume 90.8 fL (78.0-98.0); Mean Platelet Volume 10.8 fL (7.4-10.4); Platelet Count 117 10x3/uL (130-400); Red Blood Cell (RBC) Count 3.59 mill/uL (4.70-6.10)
[2024-04-26 06:16] LABS: Albumin 3.5 g/dL (3.4-4.8); Globulin 2.4 g/dL (2.4-3.5)
[2024-04-26] MEDS: Potassium Chloride 20 MEQ TAB PO SCH ×2 (10:01→17:51)
[2024-04-27 10:55] LABS: #Basophils 0.04 10x3/uL (0.0-0.2); %Basophils 0.7 % (0.0-1.0); %Eosinophils 4.1 % (0.0-10.0); %Lymphocytes 16.7 % (21.0-51.0); %Monocytes 10.7 % (0.0-10.0); %Neutrophils 67.4 % (42.0-75.0); Hematocrit 34.6 % (42.0-52.0); Hemoglobin 11.8 g/dL (14.0-18.0); Mean Corpuscular HGB CONC 34.1 g/dL (32.0-36.0); Mean Corpuscular Hemoglobin 30.6 pg (27.0-31.0); Mean Corpuscular Volume 89.6 fL (78.0-98.0); Mean Platelet Volume 10.5 fL (7.4-10.4); Platelet Count 123 10x3/uL (130-400); RBC Distribution Width 14.9 % (11.5-14.5); Red Blood Cell (RBC) Count 3.86 mill/uL (4.70-6.10)
[2024-04-27 11:14] LABS: ALT (SGPT) 23 U/L (8-55); AST (SGOT) 26 U/L (5-34); Albumin 3.7 g/dL (3.4-4.8); Alkaline Phosphatase 82 U/L (40-110); Anion Gap 12 mmol/L (10-20); BUN (Urea Nitrogen) 14 mg/dL (8.4-25.7); Bilirubin, Total 0.6 mg/dL (0.2-1.2); Calc. Creatinine Clearance 79 mL/min (70-130); Calcium 9.2 mg/dL (7.8-10.44); Carbon Dioxide 22 mmol/L (23-31); Chloride 108 mmol/L (98-107); Estimated GFR 60; Globulin 2.8 g/dL (2.4-3.5); Glucose 109 mg/dL (83-110); Magnesium 1.9 mg/dL (1.6-2.6); Potassium 3.8 mmol/L (3.5-5.1); Protein, Total 6.5 g/dL (5.8-8.1); Sodium 138 mmol/L (136-145)
[2024-04-28] MEDS: Fioricet 325/50/40 mg Tablet PO PRN (21:50)
[2024-04-29 06:27] LABS: #Basophils 0.05 10x3/uL (0.0-0.2); %Basophils 0.8 % (0.0-1.0); %Eosinophils 5.5 % (0.0-10.0); %Lymphocytes 24.9 % (21.0-51.0); %Neutrophils 57.6 % (42.0-75.0); Hematocrit 37.9 % (42.0-52.0); Hemoglobin 12.9 g/dL (14.0-18.0); Mean Corpuscular Hemoglobin 30.9 pg (27.0-31.0); Mean Corpuscular Volume 90.7 fL (78.0-98.0); Mean Platelet Volume 10.5 fL (7.4-10.4); Platelet Count 146 10x3/uL (130-400); RBC Distribution Width 14.8 % (11.5-14.5); Red Blood Cell (RBC) Count 4.18 mill/uL (4.70-6.10)
[2024-04-29 06:43] LABS: Anion Gap 14 mmol/L (10-20); BUN (Urea Nitrogen) 22 mg/dL (8.4-25.7); Calc. Creatinine Clearance 76 mL/min (70-130); Calcium 9.5 mg/dL (7.8-10.44); Carbon Dioxide 21 mmol/L (23-31); Cardiac Risk 4.1 (Less than 4.5); Chloride 107 mmol/L (98-107); Cholesterol 138 mg/dl (< 200 Desired); Estimated GFR 57; Glucose 87 mg/dL (83-110); HDL Cholesterol 34 mg/dL (>60 Neg Risk); LDL Cholesterol, Calculated 88 mg/dL; Potassium 3.9 mmol/L (3.5-5.1); Sodium 138 mmol/L (136-145); Triglycerides 79 mg/dL (Less than 150)
[2024-04-29] MEDS: Ezetimibe 10 MG TAB PO SCH (11:40)
[2024-04-29] MEDS: Atorvastatin Calcium 40 MG TAB PO SCH (20:00)
[2024-04-29] MEDS: Pregabalin 50 MG CAP PO SCH (20:00)
[2024-04-30 04:49] LABS: Anion Gap 11 mmol/L (10-20); BUN (Urea Nitrogen) 24 mg/dL (8.4-25.7); Calc. Creatinine Clearance 71 mL/min (70-130); Calcium 9.4 mg/dL (7.8-10.44); Carbon Dioxide 23 mmol/L (23-31); Chloride 107 mmol/L (98-107); Estimated GFR 53; Glucose 92 mg/dL (83-110); Potassium 3.7 mmol/L (3.5-5.1); Sodium 137 mmol/L (136-145)
[2024-04-30] MEDS: PARoxetine 20 MG TAB PO SCH (09:39)
[2024-04-30] MEDS: Oxybutynin ER 5 MG TAB PO SCH (09:39)
[2024-04-30] MEDS: Ezetimibe 10 MG TAB PO SCH (09:40)
[2024-04-30 10:42] VITALS: BMI 25.7
[2024-04-30 19:30] VITALS: BP 140/77; TEMP 97.4
== END 2024-04-30 19:45 | disposition home health service (06) | DRG 640 ==
LOC: ERS 14:52 → 2NO 20:53 → OBSVTOIN 04-23 12:50
PROVIDERS: ADMIT Internal Medicine; ATTEND Hospitalist
DX: E87.8 Other disorders of electrolyte and fluid balance, not elsewhere classified (principal); G92.8 Other toxic encephalopathy; I13.0 Hypertensive heart and chronic kidney disease with heart failure and stage 1 through stage 4 chronic kidney disease, or unspecified chronic kidney disease; I50.22 Chronic systolic (congestive) heart failure; E87.1 Hypo-osmolality and hyponatremia; F90.9 Attention-deficit hyperactivity disorder, unspecified type; E78.5 Hyperlipidemia, unspecified; E11.22 Type 2 diabetes mellitus with diabetic chronic kidney disease; G43.909 Migraine, unspecified, not intractable, without status migrainosus; M10.9 Gout, unspecified; I44.1 Atrioventricular block, second degree; E86.1 Hypovolemia; E87.6 Hypokalemia; R00.1 Bradycardia, unspecified; I25.10 Atherosclerotic heart disease of native coronary artery without angina pectoris; I48.0 Paroxysmal atrial fibrillation; E03.9 Hypothyroidism, unspecified; F41.8 Other specified anxiety disorders; N18.30 Chronic kidney disease, stage 3 unspecified; Z95.1 Presence of aortocoronary bypass graft; Z98.890 Other specified postprocedural states; Z90.49 Acquired absence of other specified parts of digestive tract; Z89.411 Acquired absence of right great toe; Z87.81 Personal history of (healed) traumatic fracture; Z87.891 Personal history of nicotine dependence
CPT/HCPCS: 36415; 36416; 70450; 70551; 71045; 80048; 80053; 80061; 80306; 80307; 81001; 82140; 82550; 83036; 83605; 83690; 83735; 84145; 84300; 84443; 84484; 85025; 87040; 87086; 93005; 93010; 93306; J1650; J7030; J7050